=== PATIENT | female | born 1935 | race Caucasian/White ===

== ENCOUNTER 2016-11-26 08:58 | Inpatient (IN) ==
[2016-11-26] MEDS ORDERED: Ipratropium/Albuterol Neb 3 ML IH ONE (09:34)
--- NOTE | 2016-11-26 09:38 | Emergency Department Note ---
Disposition Clinical Impression: Dyspnea Qualifiers: Dyspnea type: unspecified Qualified Code(s): R06.00 - Dyspnea, unspecified Fluid overload Qualifiers: Hypervolemia type: unspecified Qualified Code(s): E87.70 - Fluid overload, unspecified Disposition: Admitted As Inpatient Condition: Fair Referrals: Vidhya Bland DO [Primary Care Provider] - Forms: ED Satisfaction Letter Time of Disposition: 12:02 SOB HPI - General Chief Complaint: ED Upper Respiratory Infection Stated Complaint: congestion Time Seen by Provider: 11/26/16 09:31 Source: patient, family Mode of arrival: wheelchair Limitations: no limitations Nursing Notes Reviewed: Yes Vital Signs Reviewed: Yes - History of Present Illness 81-year-old been sick for the last several days and states that she's been short of breath and having some wheezing since becoming sick. Patient has no history of heart failure or COPD. I did review her records she had an echo back in 01/2016 that showed an EF of 60%. Pt Subjective Complaint: shortness of breath Onset (ago): day(s) Context: recent illness Severity: moderate Consistency/Duration: constant Improves with: nothing Worsens with: exertion Associated symptoms: Reports: cough, wheezing. Denies: fever, hemoptysis Treatment prior to arrival: none - Related Data Home Medications Medication Instructions Recorded Confirmed Aspirin [Adult Low Dose Aspirin EC] 81 mg PO QAM 04/27/15 04/27/15 Cholecalciferol (Vitamin D3) 5,000 unit PO QAM 04/27/15 04/27/15 [Vitamin D3] Digoxin [Lanoxin] 0.125 mg PO QAM 04/27/15 04/27/15 Furosemide [Lasix] 20 mg PO QAM 04/27/15 04/27/15 Glimepiride [Amaryl] 0.5 mg PO QPM 04/27/15 04/27/15 Glimepiride [Amaryl] 1 mg PO QAM 04/27/15 04/27/15 Levothyroxine [Synthroid] 125 mcg PO QAM 04/27/15 04/27/15 Lisinopril [Zestril] 20 mg PO QAM 04/27/15 04/27/15 Magnesium Oxide [Magnesium] 400 mg PO QPM 04/27/15 04/27/15 Multivitamin/Iron/Folic Acid 1 each PO QAM 04/27/15 04/27/15 [Centrum Complete Multivit Tab] Warfarin [Coumadin] 2 mg PO AD 04/27/15 04/27/15 Warfarin [Coumadin] 3 mg PO AD 04/27/15 04/27/15 Previous Rx's Medication Instructions Recorded Levofloxacin [Levaquin] 750 mg PO DAILY #2 tablet 05/02/15 Metoprolol [Lopressor] 75 mg PO BID #60 tablet 05/02/15 amLODIPine [Norvasc] 10 mg PO DAILY #30 tablet 05/02/15 Meclizine [Antivert] 25 mg PO TID 7 Days tablet 12/22/15 cephALEXin [Keflex] 500 mg PO TID #9 capsule 02/12/16 Allergies Allergy/AdvReac Type Severity Reaction Status Date / Time No Known Allergies Allergy Verified 12/22/15 20:04 All systems ED: reviewed and negative except as stated. Constitutional: Denies: fever, chills, weakness, weight change Eyes: Denies: eye pain, eye discharge, vision change ENT ED: Denies: ear pain, throat pain, dental pain, hearing loss, epistaxis, congestion, dysphagia Cardiovascular: Denies: chest pain, palpitations, dyspnea on exertion, edema, syncope Respiratory: Reports: dyspnea, wheezes. Denies: cough, hemoptysis, stridor Gastrointestinal: Denies: abdominal pain, nausea, vomiting, diarrhea, constipation, hematemesis, melena, hematochezia Genitourinary: Denies: dysuria, frequency, hematuria, discharge Musculoskeletal: Denies: back pain, neck pain, arthralgia, myalgia Integumentary: Denies: rash, abrasion, lesions Neurological: Denies: headache, weakness, numbness, paresthesias, confusion, abnormal gait, vertigo Psychiatric: Denies: anxiety, depression, suicidal thoughts, homicidal thoughts , auditory hallucinations, visual hallucinations Endocrine: Denies: fatigue Hematological/Lymphatic: Denies: easy bleeding, easy bruising Allergic/Immunologic: Denies: facial swelling, urticaria Past Medical History - Past Medical History Medical history: Reports: atrial fibrillation, diabetes, hypertension, thyroid disease Surgical history: Reports: cholecystectomy, knee replacement Psychiatric history: Reports: no psych history CHANGE MANAGEMENT DIRECTOR history: Reports: no CHANGE MANAGEMENT DIRECTOR history - Social History Smoking Status: Never smoker Smokeless Tobacco Status: No Alcohol use: Reports: none Drug use: Reports: none Physical Exam - General Limitations: no limitations General appearance: alert, in no apparent distress - Head Head exam: atraumatic, normocephalic, normal inspection - Eye Eye exam: Present: normal appearance, PERRL, EOMI - ENT ENT exam: normal exam, normal oropharynx, mucous membranes moist - Neck Neck exam: Present: normal inspection, full ROM, trachea midline - Chest Chest inspection: Present: normal inspection, symmetric chest wall rise - Respiratory Respiratory exam: Present: wheezes, prolonged expiratory phase - Cardiovascular Cardiovascular exam: Present: bradycardia (Heart rate when I was in the room was 57), irregular rhythm - Abdominal Exam Abdominal exam: Present: soft, Non-Tender. Absent: tenderness, distention, guarding, rebound, rigidity - Extremities Exam Extremities exam: Present: normal inspection, full ROM. Absent: tenderness, pedal edema - Expanded Lower Extremity Exam Neurovascular/Tendon exam: Absent: motor deficit, sensory deficit, tendon deficit Gait: not tested/not observed - Back Exam Back exam: Present: normal inspection, full ROM. Absent: tenderness - Neurological Exam Neurological exam: Present: alert, oriented X3 - Psychiatric Psychiatric exam: Present: normal affect, normal mood - Skin Skin exam: Present: warm, dry, intact, normal color Course - Reevaluation(s) Reevaluation #1: 81-year-old comes in with increasing shortness of breath. She is noted to be hypertensive. She has cardiomegaly on her chest x-ray or BNP is elevated history of Lasix and Nitropaste with some reduction in her blood pressure. Admit her for evaluation and treatment. Time: 12:01 - Consultations Consultation #1: Skin test with Dr. Dobbins, admit Time: 12:01 Vital Signs Temperature 97.7 F 11/26/16 09:07 Pulse Rate 82 11/26/16 09:07 Respiratory Rate 16 11/26/16 09:07 Blood Pressure 205/73 11/26/16 09:07 O2 Sat by Pulse Oximetry 92 11/26/16 09:07 Temperature 97.7 F 11/26/16 09:07 Pulse Rate 66 11/26/16 11:35 Respiratory Rate 16 11/26/16 11:35 Blood Pressure 179/92 11/26/16 11:35 O2 Sat by Pulse Oximetry 98 11/26/16 11:35 Oxygen Delivery Oxygen Delivery Nasal Cannula Shortness of Breath/Dyspnea - Lab Data Lab results reviewed: Yes I reviewed the patient's lab results. Result diagrams: 11/26/16 09:43 11/26/16 09:43 Lab Results 11/26/16 11/26/16 11/26/16 Range/Units 09:43 09:43 09:43 WBC 16.1 H D (4.3-11.1) K/mcL RBC 5.30 H (3.82-4.97) M/mcL Hgb 11.9 (11.5-15.4) g/dL Hct 37.9 (35.3-44.9) % MCV 71.5 L (83.0-100.0) fL MCH 22.5 L (28.0-33.3) pg MCHC 31.4 L (31.6-35.5) g/dL RDW 16.7 H (11.5-14.5) % Plt Count 297 (140-400) K/mcL MPV 9.0 L (9.4-12.4) fL Immature Gran % 0.8 (0-4) % Seg Neutrophils % 84.4 % Lymphocytes % 7.0 % Monocytes % 7.7 % Eosinophils % 0.0 % Basophils % 0.1 % Neutrophils # 13.6 H (1.6-8.9) K/mcL Lymphocytes # 1.1 (0.6-4.6) K/mcL Monocytes # 1.2 (0.0-1.3) K/mcL Eosinophils # 0.0 (0.0-0.6) K/mcL Basophils # 0.0 (0.0-0.2) K/mcL Immature Plt Fraction 1.8 (1.1-6.1) % ABG pH (7.32-7.45) pH Units ABG pCO2 (35-45) mmHg ABG pO2 (85-104) mmHg ABG HCO3 (21-27) mEq/L ABG Total CO2 (20-26) mEq/L ABG O2 Saturation (95-98) % ABG Base Excess (-2 to 3) mEq/L Sodium 128 L (136-145) mEq/L Potassium 3.5 (3.5-4.5) mEq/L Chloride 92 L (98-109) mEq/L Carbon Dioxide 25 (19-29) mEq/L BUN 22 H (7-20) mg/dL Creatinine 1.00 (0.57-1.11) mg/dL Est GFR ( Amer) > 60 (> 60) Est GFR (Non-Af Amer) 53 L (> 60) BUN/Creatinine Ratio 22 (6-26) Glucose 138 H (70-99) mg/dL Calculated Osmolality 272 L (280-300) Lactic Acid 1.3 (0.5-2.2) mmol/L Calcium 8.9 (8.6-10.8) mg/dL Troponin I (0-0.03) ng/mL B-Natriuretic Peptide (0-100) pg/mL Urine Color (Yellow) Urine Clarity (Clear) Urine pH (5.0-8.0) pH Units Ur Specific Institute (1.010-1.025) Urine Protein (Neg-Trace) mg/dL Urine Glucose (UA) (Normal) mg/dL Urine Ketones (Negative) mg/dL Urine Blood (Negative) Urine Nitrite (Negative) Urine Bilirubin (Negative) Urine Urobilinogen (Normal) mg/dL Ur Leukocyte Esterase (Negative) Urine Microscopic RBC (0-3) per hpf Urine Microscopic WBC (0-3) per hpf Ur Squamous Epith Cells (None-Few) per lpf Urine Bacteria (None-Few) per hpf Hyaline Casts (None-Few) per lpf Ur Culture Indicated? (NO) 11/26/16 11/26/16 11/26/16 Range/Units 09:43 09:43 10:07 WBC (4.3-11.1) K/mcL RBC (3.82-4.97) M/mcL Hgb (11.5-15.4) g/dL Hct (35.3-44.9) % MCV (83.0-100.0) fL MCH (28.0-33.3) pg MCHC (31.6-35.5) g/dL RDW (11.5-14.5) % Plt Count (140-400) K/mcL MPV (9.4-12.4) fL Immature Gran % (0-4) % Seg Neutrophils % % Lymphocytes % % Monocytes % % Eosinophils % % Basophils % % Neutrophils # (1.6-8.9) K/mcL Lymphocytes # (0.6-4.6) K/mcL Monocytes # (0.0-1.3) K/mcL Eosinophils # (0.0-0.6) K/mcL Basophils # (0.0-0.2) K/mcL Immature Plt Fraction (1.1-6.1) % ABG pH 7.41 (7.32-7.45) pH Units ABG pCO2 41 (35-45) mmHg ABG pO2 112 H (85-104) mmHg ABG HCO3 26 (21-27) mEq/L ABG Total CO2 28 H (20-26) mEq/L ABG O2 Saturation 98 (95-98) % ABG Base Excess 2 (-2 to 3) mEq/L Sodium (136-145) mEq/L Potassium (3.5-4.5) mEq/L Chloride (98-109) mEq/L Carbon Dioxide (19-29) mEq/L BUN (7-20) mg/dL Creatinine (0.57-1.11) mg/dL Est GFR ( Amer) (> 60) Est GFR (Non-Af Amer) (> 60) BUN/Creatinine Ratio (6-26) Glucose (70-99) mg/dL Calculated Osmolality (280-300) Lactic Acid (0.5-2.2) mmol/L Calcium (8.6-10.8) mg/dL Troponin I 0.01 (0-0.03) ng/mL B-Natriuretic Peptide 609 H (0-100) pg/mL Urine Color (Yellow) Urine Clarity (Clear) Urine pH (5.0-8.0) pH Units Ur Specific Institute (1.010-1.025) Urine Protein (Neg-Trace) mg/dL Urine Glucose (UA) (Normal) mg/dL Urine Ketones (Negative) mg/dL Urine Blood (Negative) Urine Nitrite (Negative) Urine Bilirubin (Negative) Urine Urobilinogen (Normal) mg/dL Ur Leukocyte Esterase (Negative) Urine Microscopic RBC (0-3) per hpf Urine Microscopic WBC (0-3) per hpf Ur Squamous Epith Cells (None-Few) per lpf Urine Bacteria (None-Few) per hpf Hyaline Casts (None-Few) per lpf Ur Culture Indicated? (NO) 11/26/16 Range/Units 11:12 WBC (4.3-11.1) K/mcL RBC (3.82-4.97) M/mcL Hgb (11.5-15.4) g/dL Hct (35.3-44.9) % MCV (83.0-100.0) fL MCH (28.0-33.3) pg MCHC (31.6-35.5) g/dL RDW (11.5-14.5) % Plt Count (140-400) K/mcL MPV (9.4-12.4) fL Immature Gran % (0-4) % Seg Neutrophils % % Lymphocytes % % Monocytes % % Eosinophils % % Basophils % % Neutrophils # (1.6-8.9) K/mcL Lymphocytes # (0.6-4.6) K/mcL Monocytes # (0.0-1.3) K/mcL Eosinophils # (0.0-0.6) K/mcL Basophils # (0.0-0.2) K/mcL Immature Plt Fraction (1.1-6.1) % ABG pH (7.32-7.45) pH Units ABG pCO2 (35-45) mmHg ABG pO2 (85-104) mmHg ABG HCO3 (21-27) mEq/L ABG Total CO2 (20-26) mEq/L ABG O2 Saturation (95-98) % ABG Base Excess (-2 to 3) mEq/L Sodium (136-145) mEq/L Potassium (3.5-4.5) mEq/L Chloride (98-109) mEq/L Carbon Dioxide (19-29) mEq/L BUN (7-20) mg/dL Creatinine (0.57-1.11) mg/dL Est GFR ( Amer) (> 60) Est GFR (Non-Af Amer) (> 60) BUN/Creatinine Ratio (6-26) Glucose (70-99) mg/dL Calculated Osmolality (280-300) Lactic Acid (0.5-2.2) mmol/L Calcium (8.6-10.8) mg/dL Troponin I (0-0.03) ng/mL B-Natriuretic Peptide (0-100) pg/mL Urine Color Yellow (Yellow) Urine Clarity Clear (Clear) Urine pH 6.5 (5.0-8.0) pH Units Ur Specific Institute 1.018 (1.010-1.025) Urine Protein 30 H (Neg-Trace) mg/dL Urine Glucose (UA) Normal (Normal) mg/dL Urine Ketones Negative (Negative) mg/dL Urine Blood Negative (Negative) Urine Nitrite Negative (Negative) Urine Bilirubin Negative (Negative) Urine Urobilinogen Normal (Normal) mg/dL Ur Leukocyte Esterase Trace H (Negative) Urine Microscopic RBC 3-5 H (0-3) per hpf Urine Microscopic WBC 5-15 H (0-3) per hpf Ur Squamous Epith Cells Many H (None-Few) per lpf Urine Bacteria None Seen (None-Few) per hpf Hyaline Casts None Seen (None-Few) per lpf Ur Culture Indicated? YES A (NO) - Radiology Data Radiology results reviewed: Yes I reviewed the patient's radiology results. Chest X-Ray 11/26/16 09:31 IMPRESSION: Stable study showing cardiomegaly. D/ / Amber Ge Cha, MD / Amber Ge Cha, MD Interpreting Provider: Amber Ge Cha, MD - EKG Data EKG attestation: Yes I reviewed and interpreted this EKG. Rate: Reports: normal Rhythm: Reports: A.Fib Interpretation: Reports: no acute changes
[2016-11-26 09:55] LABS: Basophils % 0.1 %; Hematocrit 37.9 % (35.3-44.9); Hemoglobin 11.9 g/dL (11.5-15.4); Immature Granulocytes % 0.8 % (0-4); Immature Platelets 1.8 % (1.1-6.1); Lymphocytes # 1.1 K/mcL (0.6-4.6); Mean Corpuscular HGB Conc 31.4 g/dL (31.6-35.5); Mean Corpuscular Hemoglobin 22.5 pg (28.0-33.3); Mean Corpuscular Volume 71.5 fL (83.0-100.0); Monocytes # 1.2 K/mcL (0.0-1.3); Monocytes % 7.7 %; Neutrophils # 13.6 K/mcL (1.6-8.9); Platelet Count 297 K/mcL (140-400); Red Cell Distribution Width 16.7 % (11.5-14.5); Segmented Neutrophils % 84.4 %
[2016-11-26] MEDS ORDERED: Nitroglycerin 1 INCH/GM PACKET TP ONE (09:59)
[2016-11-26 10:06] LABS: BUN/Creatinine Ratio 22 (6-26); Blood Urea Nitrogen 22 mg/dL (7-20); Calcium 8.9 mg/dL (8.6-10.8); Carbon Dioxide 25 mEq/L (19-29); Chloride 92 mEq/L (98-109); Glucose 138 mg/dL (70-99); Osmolality,Calculated 272 (280-300); Potassium 3.5 mEq/L (3.5-4.5); Sodium 128 mEq/L (136-145); eGFR For African Americans > 60 (> 60); eGFR For Non-African Americans 53 (> 60)
[2016-11-26 10:10] LABS: ABG Base Excess 2 mEq/L (-2 to 3); ABG HCO3 26 mEq/L (21-27); ABG Oxygen Saturation 98 % (95-98); ABG PCO2 41 mmHg (35-45); ABG PH 7.41 pH Units (7.32-7.45); ABG PO2 112 mmHg (85-104); ABG TCO2 28 mEq/L (20-26)
[2016-11-26] MEDS ORDERED: Furosemide 40 MG/4 ML VIAL IVP ONE (11:17)
[2016-11-26 11:44] LABS: Bilirubin,Urine Negative (Negative); Blood,Urine Negative (Negative); Clarity,Urine Clear (Clear); Color,Urine Yellow (Yellow); Glucose,Urine (UA) Normal (Normal); Ketones,Urine Negative (Negative); Leukocyte Esterase,Urine Trace (Negative); Nitrite,Urine Negative (Negative); PH,Urine 6.5 pH Units (5.0-8.0); Protein,Urine 30 mg/dL (Neg-Trace); Specific Gravity,Urine 1.018 (1.010-1.025); Urobilinogen,Urine Normal (Normal)
[2016-11-26 11:47] LABS: Bacteria,Urine None Seen per hpf (None-Few); Hyaline Casts,Urine None Seen per lpf (None-Few); Squamous Epithelial Cell,Urine Many per lpf (None-Few)
[2016-11-26] MEDS ORDERED: Ipratropium/Albuterol Neb 3 ML IH PRN (13:13)
--- NOTE | 2016-11-26 13:19 | Internal Med History&Physical ---
Date of Encounter: 11/26/16 Time of Encounter: 13:17 Assessment and Plan (1) Dyspnea Current visit: Yes Status: Acute uncertain etiology. CXR clear but cardiolomegaly. Check TTE Trial of lasix diuretics, I/Os Empiric treatment for bronchitis with duonebs, azithromycin Although patient had DBP in 120 on presentation, it came down well and i doubt this represent a symptom of HTN urgency/crisis Monitor hospital course closely to monitor response to therapy Qualifiers: Dyspnea type: shortness of breath Qualified Code(s): R06.02 - Shortness of breath; R06.00 - Dyspnea, unspecified; R06.01 - Orthopnea (2) Atrial fibrillation Current visit: No Status: Chronic continue coumadin, rate agents Qualifiers: Atrial fibrillation type: chronic Qualified Code(s): I48.2 - Chronic atrial fibrillation (3) Hypothyroidism Current visit: No Status: Chronic continue medications Qualifiers: Hypothyroidism type: unspecified Qualified Code(s): E03.9 - Hypothyroidism , unspecified (4) HTN (hypertension), benign Current visit: Yes Status: Acute continue med Internal Medicine - H&P: HPI Chief complaint: SOB History of present illness: Ms. Mcdermott is a 81 year old female who presents with SOB She has a hx of AFib on coumadin, HTN, hypothyroidism. She reports developing symptoms since sunday when she visited the urgent care with SOB. She was given keflex, mucinex and sent home. However, over the course of the weekend, her respiratory symptoms did not improve with worsening SOB while ambulating around her home. At baseline, she uses qHS 2 L NC. On direct questioning, denies overt PND/orthopnea. CXR with cardiomegaly but w/o overt interstitial infiltrates Review noted some stomach upset. EKG personally reviewed with rate 67, AFib EXAMINATION: SINGLE VIEW OF THE CHEST 11/26/2016 10:24 am COMPARISON: 12/22/2015 HISTORY: ORDERING SYSTEM PROVIDED HISTORY: upper respiratory infection Congestion, nausea for 1 week. Acute symptoms. Initial study. FINDINGS: No acute bony abnormality. The cardiopericardial silhouette is enlarged, similar to the prior study. The lungs are clear without focal consolidation, effusion, nor overt edema. XR/XR chest 1V portable IMPRESSION: Stable study showing cardiomegaly. Past Med Surg Social Fam HX - Past Medical History Medical history: atrial fibrillation, diabetes, hypertension, thyroid disease Psychiatric history: no psych history - Past Surgical History Surgical History: cholecystectomy, knee replacement - Social History Smoking Status: Never smoker Smokeless Tobacco Status: No Alcohol use: none Drug use: none - Family History Mother Living Status: Hx Family Cardiac Disorders: Yes (htn) Hx Family Neurologic Disorders: Yes (stroke) Father Living Status: Internal Medicine - H&P: Meds Aspirin [Adult Low Dose Aspirin EC] 81 mg PO QAM 04/27/15 [History] Cholecalciferol (Vitamin D3) [Vitamin D3] 5,000 unit PO QAM 04/27/15 [History] Glimepiride [Amaryl] 0.5 mg PO QPM 04/27/15 [History] Glimepiride [Amaryl] 1 mg PO QAM 04/27/15 [History] Lisinopril [Zestril] 20 mg PO QAM 04/27/15 [History] Magnesium Oxide [Magnesium] 400 mg PO QPM 04/27/15 [History] Multivitamin/Iron/Folic Acid [Centrum Complete Multivit Tab] 1 each PO QAM 04/26 [History] Warfarin [Coumadin] 2 mg PO TUFR 04/27/15 [History] Warfarin [Coumadin] 3 mg PO SUMOWETHSA 04/27/15 [History] Metoprolol [Lopressor] 75 mg PO BID #60 tablet 05/02/15 [Rx] cephALEXin [Keflex] 500 mg PO TID #9 capsule 02/12/16 [Rx] Levothyroxine Sodium [Levoxyl] 112 mcg PO DAILY 11/26/16 [History] cloNIDine HCl [CloNIDine HCl] 0.1 mg PO BID 11/26/16 [History] hydrALAZINE [HydrALAZINE] 25 mg PO BID 11/26/16 [History] hydroCHLOROthiazide [Hydrochlorothiazide] 50 mg PO DAILY 11/26/16 [History] 3 Allergy/AdvReac Type Severity Reaction Status Date / Time No Known Allergies Allergy Verified 12/22/15 20:04 All Systems PM: A 10-system review of systems was performed and is negative for pertinent findings except as documented above in the HPI. Review of systems: ROS 14 point review of systems reviewed as best as possible given presentation. Pertinent positive or negative as per HPI or otherwise reviewed as negative - Constitutional Vitals: Temp Pulse Resp BP Pulse Ox 97.6 F 85 18 169/87 97 11/26/16 13:03 11/26/16 13:03 11/26/16 13:03 11/26/16 13:03 11/26/16 13:03 Exam: General - AAO x 3 Psych - Appropriate affect/speech. No agitation Eyes - JOSEFINA. Eye lids intact. No scleral icterus Heart - Sinus. RRR. S1 and S2 present. No added HS/murmurs appreciated. No elevated JVD appreciated. Lung - Adequate air entry b/l, No crackles/wheezes appreciated GI - Soft, non-tender. No hepatosplenomegaly/ascites. BS+ - No CVA/suprapubic tenderness or palpable bladder distension Skin - Intact. No rash/petechiae/ecchymosis. Warm extremities Internal Med - H&P Results - Labs CBC & Chem 7: 11/26/16 09:43 11/26/16 09:43
[2016-11-26] MEDS ORDERED: Naloxone 0.4 MG/ML INJ IVP PRN (14:05)
[2016-11-26] MEDS: Azithromycin 500 MG in D5% in Water 250 ML IVPB SCH (15:39)
[2016-11-26] MEDS: Ipratropium/Albuterol Neb 3 ML IH SCH ×2 (16:23→22:35)
[2016-11-26] MEDS: Magnesium Oxide 400 MG TABLET PO SCH (17:26)
[2016-11-26] MEDS: *HR* Warfarin 3 MG TABLET PO SCH (17:26)
[2016-11-26] MEDS: Furosemide 20 MG/2 ML VIAL IVP SCH (17:26)
[2016-11-26] MEDS ORDERED: *HR* Glimepiride 2 MG TABLET PO SCH (18:00)
[2016-11-26] MEDS: cloNIDine HCl 0.1 MG TABLET PO SCH (20:45)
[2016-11-26] MEDS: hydrALAZINE 25 MG TABLET PO SCH (20:45)
[2016-11-27] MEDS: Ipratropium/Albuterol Neb 3 ML IH SCH ×4 (04:01→21:18)
[2016-11-27 04:09] LABS: Basophils % 0.3 %; Eosinophils % 0.3 %; Hematocrit 37.1 % (35.3-44.9); Hemoglobin 11.4 g/dL (11.5-15.4); Immature Granulocytes % 0.6 % (0-4); Lymphocytes # 2.2 K/mcL (0.6-4.6); Lymphocytes % 19.2 %; Mean Corpuscular HGB Conc 30.7 g/dL (31.6-35.5); Mean Corpuscular Hemoglobin 21.9 pg (28.0-33.3); Mean Corpuscular Volume 71.3 fL (83.0-100.0); Mean Platelet Volume 8.6 fL (9.4-12.4); Monocytes # 1.5 K/mcL (0.0-1.3); Monocytes % 12.6 %; Neutrophils # 7.7 K/mcL (1.6-8.9); Platelet Count 263 K/mcL (140-400); Red Cell Distribution Width 16.4 % (11.5-14.5)
[2016-11-27 04:13] LABS: INR 2.2; Prothrombin Time 24.5 Seconds (9.4-12.1)
[2016-11-27 04:29] LABS: Calcium 8.5 mg/dL (8.6-10.8)
[2016-11-27] MEDS ORDERED: Potassium Chloride 40 MEQ, Lidocaine 1% 2 ML in D5% in Water 500 ML IVPB ONE (08:59)
[2016-11-27] MEDS ORDERED: *HR* Glimepiride 2 MG TABLET PO SCH (09:00)
[2016-11-27] MEDS ORDERED: D5% in Water 1,000 ML IVC PRN (09:06)
[2016-11-27] MEDS ORDERED: *HR* Dextrose 50 % in Water (Syg) 50 ML SYRINGE IVP PRN (09:06)
[2016-11-27] MEDS ORDERED: Dextrose Gel 15 GM PO PRN ×2 (09:06)
[2016-11-27] MEDS: Aspirin Enteric Coated 81 MG Tablet PO SCH (09:50)
[2016-11-27] MEDS: hydrALAZINE 25 MG TABLET PO SCH ×2 (09:50→20:03)
[2016-11-27] MEDS: Cholecalciferol (D-3) 1,000 UNIT TABLET PO SCH (09:50)
[2016-11-27] MEDS: hydroCHLOROthiazide 25 MG TABLET PO SCH (09:50)
[2016-11-27] MEDS: Lisinopril 20 MG TABLET PO SCH (09:50)
[2016-11-27] MEDS: cloNIDine HCl 0.1 MG TABLET PO SCH ×2 (09:51→20:03)
[2016-11-27] MEDS: Furosemide 20 MG/2 ML VIAL IVP SCH ×2 (09:51→17:20)
[2016-11-27] MEDS: Insulin LISPRO 300 UNITS/3 ML VIAL SQ SCH ×4 (09:51→21:50)
--- NOTE | 2016-11-27 13:41 | Electrocardiograph Report ---
[address] [place] [address] Test Date: 2016-11-26 Pat Name: Ruth Mcdermott Department: 102 Room: 2A33 Gender: F [place] Operator: : 1935 Requested By: Suhail Galvan Order Number: [id number] Reading MD: Arlene Merchant Measurements Intervals [place] Rate: 67 P: RI: 0 QRS: 44 QRSD: 100 T: -21 QT: 381 QTc: 397 Interpretive Statements ATRIAL FIBRILLATION NONSPECIFIC ST & T-WAVE ABNORMALITY Electronically Signed On 11-27-2016 13:39:35 EDT by Arlene Merchant
[2016-11-27] MEDS: Azithromycin 500 MG in D5% in Water 250 ML IVPB SCH (15:40)
--- NOTE | 2016-11-27 15:45 | Internal Med Progress Note ---
Date of Encounter: 11/27/16 Time of Encounter: 15:44 - Assessment and plan (1) Dyspnea Current Visit: Yes Status: Acute Assessment and plan: given clinical presentation, concern for CHF decompensation last 2D echo in 01/2016 reported LVEF of 60%, normal systolic function but indeterminate diastolic function will continue IV diuresis O2 supplementation monitor I/Os, daily weights fluid restriction diet Qualifiers: Dyspnea type: shortness of breath Qualified Code(s): R06.02 - Shortness of breath; R06.00 - Dyspnea, unspecified; R06.01 - Orthopnea (2) Acute kidney injury Current Visit: Yes Status: Acute Assessment and plan: Likely secondary to diuretic use given acute respiratory decompensation,will continue Diuretic support closely monitor renal function (3) Hypokalemia Current Visit: Yes Status: Acute Assessment and plan: K supplemented continue to monitor electrolytes and replace as needed (4) Atrial fibrillation Current Visit: No Status: Chronic Assessment and plan: Rate controlled with BB anticoagulated with Coumadin INR within therapeutic range goal INR: 2-3 Qualifiers: Atrial fibrillation type: chronic Qualified Code(s): I48.2 - Chronic atrial fibrillation (5) Diabetes mellitus Current Visit: No Status: Chronic Assessment and plan: Hold oral antihyperglycemic agents at this time continue sliding scale insulin algorithm monitor FS and BG ADA diet Qualifiers: Diabetes mellitus type: type 2 Diabetes mellitus complication status: without complication Diabetes mellitus cook ship insulin use: without senior care use Qualified Code(s): E11.9 - Type 2 diabetes mellitus without complications (6) HTN (hypertension), benign Current Visit: Yes Status: Acute Assessment and plan: BP within acceptable range continue home medications (7) DVT prophylaxis Current Visit: No Status: Acute Assessment and plan: anticoagulated with coumadin (8) Hypothyroidism Current Visit: No Status: Chronic Assessment and plan: continue Levothyroxine Qualifiers: Hypothyroidism type: unspecified Qualified Code(s): E03.9 - Hypothyroidism , unspecified - Subjective Interval history: Pt seen and examined with family present at bedside. Pt reports of feeling better compared to previous day. saturating well on nasal cannula. States she only uses oxygen at night. - Constitutional Vitals: Temp Pulse Resp BP Pulse Ox 97.8 F 64 18 137/66 94 11/27/16 11:00 11/27/16 11:00 11/27/16 11:00 11/27/16 11:00 11/27/16 11:00 General appearance: Present: cooperative, A&O X 3, morbidly obese, pleasant, no acute distress, answers questions appropriately - Head Head exam: Present: atraumatic, normocephalic - Eye Eye exam: Present: conjuntiva pink, sclera anicteric - Respiratory Respiratory exam: Present: rales (bibasilar rales). Absent: respiratory distress, wheezes - Cardiovascular Cardiovascular exam: Present: RRR, +S1, +S2. Absent: diastolic murmur, gallop, rubs, systolic murmur - GI/Abdominal GI/Abdominal exam: Present: normal bowel sounds, soft, no peritoneal signs. Absent: distended, tenderness - Extremities Exam Extremities exam: Present: calf tenderness, pedal edema, warm, radial pulses palpable and symmetrical - Neurological Exam Neurological exam: Present: alert, oriented X3 - Psychiatric Psychiatric exam: Present: normal affect, normal mood Internal Medicine: Result - Labs CBC & Chem 7: 11/27/16 03:57 11/27/16 03:57 Labs: Short CBC 11/27/16 Range/Units 03:57 WBC 11.6 H (4.3-11.1) K/mcL Hgb 11.4 L (11.5-15.4) g/dL Hct 37.1 (35.3-44.9) % Plt Count 263 (140-400) K/mcL Neutrophils # 7.7 (1.6-8.9) K/mcL BMP 11/27/16 03:57 Sodium 131 L Potassium 3.0 L Chloride 91 L Carbon Dioxide 29 BUN 25 H Creatinine 1.20 H Glucose 98 Calcium 8.5 L - ABG Interpretation ABG results: ABG ABG pH 7.41 pH Units (7.32-7.45) 11/26/16 10:07 ABG pCO2 41 mmHg (35-45) 11/26/16 10:07 ABG pO2 112 mmHg (85-104) H 11/26/16 10:07 ABG O2 Saturation 98 % (95-98) 11/26/16 10:07 PT/INR, D-dimer PT 24.5 Seconds (9.4-12.1) H 11/27/16 03:57 Consult Discharge Plan - Plan Referrals: Vidhya Bland DO [Primary Care Provider] - (web request 11/27/2016)
[2016-11-27] MEDS: *HR* Warfarin 3 MG TABLET PO SCH (17:20)
[2016-11-27] MEDS: Magnesium Oxide 400 MG TABLET PO SCH (17:20)
[2016-11-27] MEDS ORDERED: Warfarin perPT PO PRN (18:00)
[2016-11-28] MEDS: Ipratropium/Albuterol Neb 3 ML IH SCH ×4 (04:19→21:59)
[2016-11-28 04:58] LABS: Basophils # 0.1 K/mcL (0.0-0.2); Basophils % 0.4 %; Eosinophils # 0.1 K/mcL (0.0-0.6); Hematocrit 38.1 % (35.3-44.9); Hemoglobin 12.3 g/dL (11.5-15.4); Immature Granulocytes % 0.7 % (0-4); Lymphocytes # 3.4 K/mcL (0.6-4.6); Lymphocytes % 25.5 %; Mean Corpuscular HGB Conc 32.3 g/dL (31.6-35.5); Mean Corpuscular Hemoglobin 23.2 pg (28.0-33.3); Mean Corpuscular Volume 71.9 fL (83.0-100.0); Mean Platelet Volume 8.7 fL (9.4-12.4); Monocytes # 1.5 K/mcL (0.0-1.3); Monocytes % 11.4 %; Neutrophils # 8.2 K/mcL (1.6-8.9); Platelet Count 283 K/mcL (140-400); Red Cell Distribution Width 16.3 % (11.5-14.5)
[2016-11-28 05:00] LABS: INR 2.1; Prothrombin Time 22.8 Seconds (9.4-12.1)
[2016-11-28 05:07] LABS: Calcium 8.6 mg/dL (8.6-10.8); Potassium 2.8 mEq/L (3.5-4.5)
[2016-11-28 05:08] LABS: Magnesium 1.8 mg/dL (1.6-2.6)
[2016-11-28] MEDS ORDERED: Potassium Chloride 40 MEQ, Lidocaine 1% 2 ML in D5% in Water 500 ML IVPB ONE (07:30)
[2016-11-28] MEDS: Insulin LISPRO 300 UNITS/3 ML VIAL SQ SCH ×4 (07:50→20:47)
[2016-11-28] MEDS: hydroCHLOROthiazide 25 MG TABLET PO SCH (07:57)
[2016-11-28] MEDS: Furosemide 20 MG/2 ML VIAL IVP SCH (07:57)
[2016-11-28] MEDS: Cholecalciferol (D-3) 1,000 UNIT TABLET PO SCH (07:58)
[2016-11-28] MEDS: hydrALAZINE 25 MG TABLET PO SCH ×2 (07:58→20:45)
[2016-11-28] MEDS: Lisinopril 20 MG TABLET PO SCH (07:58)
[2016-11-28] MEDS: cloNIDine HCl 0.1 MG TABLET PO SCH ×2 (07:58→20:45)
[2016-11-28] MEDS: Aspirin Enteric Coated 81 MG Tablet PO SCH (07:58)
--- NOTE | 2016-11-28 12:27 | Internal Med Progress Note ---
Date of Encounter: 11/28/16 Time of Encounter: 12:19 - Assessment and plan (1) Dyspnea Current Visit: Yes Status: Acute Assessment and plan: given clinical presentation, concern for CHF decompensation last 2D echo in 01/2016 reported LVEF of 60%, normal systolic function but indeterminate diastolic function repeat 2D echo showed LVEF of 55%, indeterminate diastolic function, mildly dilated right ventricle with normal appearing function, severely dilated left atrium, severely dilated right atrium. no evidence of pulmonary hypertension will start PO lasix and d/c IV lasix likely d/c in am d/c griffin catheter pt reports of having a follow up with her Primary drywall stripper in two weeks. O2 supplementation monitor I/Os, daily weights fluid restriction diet Qualifiers: Dyspnea type: shortness of breath Qualified Code(s): R06.02 - Shortness of breath; R06.00 - Dyspnea, unspecified; R06.01 - Orthopnea (2) Acute kidney injury Current Visit: Yes Status: Acute Assessment and plan: Likely secondary to diuretic use d/ester IV lasix and started PO lasix. Pt has underlying CKD, will continue to closely monitor (3) Hypokalemia Current Visit: Yes Status: Acute Assessment and plan: K supplemented continue to monitor electrolytes and replace as needed (4) Atrial fibrillation Current Visit: No Status: Chronic Assessment and plan: Rate controlled with BB anticoagulated with Coumadin INR within therapeutic range goal INR: 2-3 Qualifiers: Atrial fibrillation type: chronic Qualified Code(s): I48.2 - Chronic atrial fibrillation (5) Diabetes mellitus Current Visit: No Status: Chronic Assessment and plan: Hold oral antihyperglycemic agents at this time continue sliding scale insulin algorithm monitor FS and BG ADA diet Qualifiers: Diabetes mellitus type: type 2 Diabetes mellitus complication status: without complication 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 insulin use: without correction use Qualified Code(s): E11.9 - Type 2 diabetes mellitus without complications (6) HTN (hypertension), benign Current Visit: Yes Status: Acute Assessment and plan: BP within acceptable range continue home medications (7) DVT prophylaxis Current Visit: No Status: Acute Assessment and plan: anticoagulated with coumadin (8) Hypothyroidism Current Visit: No Status: Chronic Assessment and plan: continue Levothyroxine Qualifiers: Hypothyroidism type: unspecified Qualified Code(s): E03.9 - Hypothyroidism , unspecified - Subjective Interval history: Pt seen and examined at bedside. Resting in bed and reports of feeling significantly better compared to previous day. Currently saturating well on room air and states she is using oxygen at bedtime. No overnight issues were reported. - Constitutional Vitals: Temp Pulse Resp BP Pulse Ox 97.7 F 58 16 113/72 94 11/28/16 10:39 11/28/16 10:39 11/28/16 10:39 11/28/16 10:39 11/28/16 10:39 General appearance: Present: cooperative, A&O X 3, morbidly obese, pleasant, no acute distress, answers questions appropriately - Head Head exam: Present: atraumatic, normocephalic - Eye Eye exam: Present: conjuntiva pink, sclera anicteric - Respiratory Respiratory exam: Present: rales (bibasilar rales-improved from previous day). Absent: respiratory distress, wheezes - Cardiovascular Cardiovascular exam: Present: RRR, +S1, +S2. Absent: diastolic murmur, gallop, rubs, systolic murmur - GI/Abdominal GI/Abdominal exam: Present: normal bowel sounds, soft, no peritoneal signs. Absent: distended, tenderness - Extremities Exam Extremities exam: Present: pedal edema (trace pedal edema in b/l LE ), warm, radial pulses palpable and symmetrical. Absent: calf tenderness - Neurological Exam Neurological exam: Present: alert, oriented X3 - Psychiatric Psychiatric exam: Present: normal affect, normal mood Internal Medicine: Result - Labs CBC & Chem 7: 11/28/16 04:45 11/28/16 04:45 Labs: Short CBC 11/28/16 Range/Units 04:45 WBC 13.4 H (4.3-11.1) K/mcL Hgb 12.3 (11.5-15.4) g/dL Hct 38.1 (35.3-44.9) % Plt Count 283 (140-400) K/mcL Neutrophils # 8.2 (1.6-8.9) K/mcL BMP 11/28/16 04:45 Sodium 128 L Potassium 2.8 L Chloride 86 L Carbon Dioxide 32 H BUN 31 H Creatinine 1.22 H Glucose 116 H Calcium 8.6 - ABG Interpretation ABG results: ABG ABG pH 7.41 pH Units (7.32-7.45) 11/26/16 10:07 ABG pCO2 41 mmHg (35-45) 11/26/16 10:07 ABG pO2 112 mmHg (85-104) H 11/26/16 10:07 ABG O2 Saturation 98 % (95-98) 11/26/16 10:07 PT/INR, D-dimer PT 22.8 Seconds (9.4-12.1) H 11/28/16 04:45 - Impressions Impressions Echocardiogram 11/27/16 13:14 Impressions: LVEF 55%. Normal LV chamber size, wall thickness and function. Indeterminate diastolic function. Mildly dilated right ventricle with normal appearing function. Severely dilated left atrium. Severely dilated right atrium. No evidence of a PFO with agitated saline contrast. Mild tricuspid regurgitation, which was anteriorly directed. No evidence of pulmonary hypertension identified. Left Ventricular Wall Motion: Rest Echo Findings All wall segments showed normal motion. Findings: Study Quality * Technically adequate exam. ECG Findings * Atrial fibrillation. Left Ventricle * LVEF 55%. * Normal LV chamber size, wall thickness and function. * Indeterminate diastolic function. Right Ventricle * Mildly dilated right ventricle with normal appearing function. Left Atrium * Severely dilated left atrium. Right Atrium * Severely dilated right atrium. Interatrial Septum * Persistent bowing of the interatrial septum from left to right. No evidence of a PFO with agitated saline contrast. Aortic Valve * Trileaflet aortic valve. * Mildly sclerotic aortic valve leaflets. * No aortic regurgitation. * No aortic stenosis. Mitral Valve * Mild mitral annular calcification. * No mitral regurgitation. * No mitral stenosis. Tricuspid Valve * Normal tricuspid valve structure and function. * Mild tricuspid regurgitation, which was anteriorly directed. * No evidence of pulmonary hypertension identified. Pulmonic Valve * Normal pulmonic valve structure and function. * Trace pulmonic regurgitation. Aorta * Normally sized aortic root. Pericardium * The pericardium appears normal. IVC * Normal IVC dimensions and inspiratory collapse. Pulmonary Artery * Normal visualized portions of the main pulmonary artery. Consult Discharge Plan - Plan Referrals: Vidhya Bland DO [Primary Care Provider] - (web request 11/27/2016)
[2016-11-28] MEDS: Azithromycin 500 MG in D5% in Water 250 ML IVPB SCH (15:19)
[2016-11-28] MEDS: Magnesium Oxide 400 MG TABLET PO SCH (17:09)
[2016-11-28] MEDS: Furosemide 40 MG TABLET PO SCH (17:09)
[2016-11-28] MEDS ORDERED: *HR* Warfarin 2 MG TABLET PO SCH (18:00)
[2016-11-29] MEDS: Ipratropium/Albuterol Neb 3 ML IH SCH ×4 (03:30→21:20)
[2016-11-29 06:45] LABS: Basophils # 0.1 K/mcL (0.0-0.2); Basophils % 0.6 %; Eosinophils # 0.3 K/mcL (0.0-0.6); Eosinophils % 2.8 %; Hematocrit 41.1 % (35.3-44.9); Immature Granulocytes % 1.4 % (0-4); Lymphocytes # 2.1 K/mcL (0.6-4.6); Lymphocytes % 17.2 %; Mean Corpuscular HGB Conc 31.6 g/dL (31.6-35.5); Mean Corpuscular Hemoglobin 22.7 pg (28.0-33.3); Mean Corpuscular Volume 71.7 fL (83.0-100.0); Mean Platelet Volume 8.7 fL (9.4-12.4); Monocytes # 1.3 K/mcL (0.0-1.3); Monocytes % 10.9 %; Neutrophils # 8.1 K/mcL (1.6-8.9); Platelet Count 280 K/mcL (140-400); Red Blood Count 5.73 M/mcL (3.82-4.97); Red Cell Distribution Width 16.6 % (11.5-14.5); Segmented Neutrophils % 67.1 %
[2016-11-29 06:46] LABS: Prothrombin Time 22.3 Seconds (9.4-12.1)
[2016-11-29 06:58] LABS: Calcium 8.7 mg/dL (8.6-10.8); Magnesium 1.6 mg/dL (1.6-2.6); Phosphorous 2.8 mg/dL (2.3-4.7); Potassium 3.3 mEq/L (3.5-4.5)
[2016-11-29] MEDS: Insulin LISPRO 300 UNITS/3 ML VIAL SQ SCH ×4 (07:39→21:10)
[2016-11-29] MEDS: hydrALAZINE 25 MG TABLET PO SCH ×2 (08:17→20:55)
[2016-11-29] MEDS: Lisinopril 20 MG TABLET PO SCH (08:17)
[2016-11-29] MEDS: Cholecalciferol (D-3) 1,000 UNIT TABLET PO SCH (08:17)
[2016-11-29] MEDS: cloNIDine HCl 0.1 MG TABLET PO SCH ×2 (08:17→20:55)
[2016-11-29] MEDS: Aspirin Enteric Coated 81 MG Tablet PO SCH (08:17)
[2016-11-29] MEDS: Azithromycin 250 MG TABLET PO SCH (08:17)
[2016-11-29] MEDS: Furosemide 40 MG TABLET PO SCH ×2 (08:17→16:25)
--- NOTE | 2016-11-29 14:59 | Internal Med Progress Note ---
Date of Encounter: 11/29/16 Time of Encounter: 13:50 - Assessment and plan (1) Hyponatremia Current Visit: Yes Status: Acute Assessment and plan: Worsening Hyponatremia clinically asymptomatic HCTZ has been discontinued Urine Na and Osm ordered will closely monitor Na level q6h will consider nephrology evaluation if further deterioration occurs in Na level. (2) Dyspnea Current Visit: Yes Status: Acute Assessment and plan: given clinical presentation, concern for CHF decompensation last 2D echo in 01/2016 reported LVEF of 60%, normal systolic function but indeterminate diastolic function repeat 2D echo showed LVEF of 55%, indeterminate diastolic function, mildly dilated right ventricle with normal appearing function, severely dilated left atrium, severely dilated right atrium. no evidence of pulmonary hypertension continue PO lasix pt reports of having a follow up with her Primary microsoft dynamics consultant in two weeks. O2 supplementation monitor I/Os, daily weights fluid restriction diet D/C held due to hyponatremia Qualifiers: Dyspnea type: shortness of breath Qualified Code(s): R06.02 - Shortness of breath; R06.00 - Dyspnea, unspecified; R06.01 - Orthopnea (3) Acute kidney injury Current Visit: Yes Status: Acute Assessment and plan: Likely secondary to diuretic use continue PO lasix. Pt has underlying CKD, will continue to closely monitor (4) Hypokalemia Current Visit: Yes Status: Acute Assessment and plan: K supplemented continue to monitor electrolytes and replace as needed (5) Atrial fibrillation Current Visit: No Status: Chronic Assessment and plan: Rate controlled with BB anticoagulated with Coumadin INR within therapeutic range goal INR: 2-3 Qualifiers: Atrial fibrillation type: chronic Qualified Code(s): I48.2 - Chronic atrial fibrillation (6) Diabetes mellitus Current Visit: No Status: Chronic Assessment and plan: Hold oral antihyperglycemic agents at this time continue sliding scale insulin algorithm monitor FS and BG ADA diet Qualifiers: Diabetes mellitus type: type 2 Diabetes mellitus complication status: without complication Diabetes mellitus longterm insulin use: without longterm use Qualified Code(s): E11.9 - Type 2 diabetes mellitus without complications (7) HTN (hypertension), benign Current Visit: Yes Status: Acute Assessment and plan: BP within acceptable range continue home medications (8) DVT prophylaxis Current Visit: No Status: Acute Assessment and plan: anticoagulated with coumadin (9) Hypothyroidism Current Visit: No Status: Chronic Assessment and plan: continue Levothyroxine Qualifiers: Hypothyroidism type: unspecified Qualified Code(s): E03.9 - Hypothyroidism , unspecified - Subjective Interval history: Pt seen and examined at bedside. Resting comfortably in bed and reports of feeling better. saturating well on room air and intermittently using oxygen during the day. She is however noted to have worsening of hyponatremia, she remains clinically asymptomatic, however given her current Na level, she needs close monitoring. Her HCTZ has been discontinued Urine Na and Osm ordered will closely monitor Na level q6h will consider nephrology evaluation if further deterioration occurs in Na level. - Constitutional Vitals: Temp Pulse Resp BP Pulse Ox 97.4 F L 61 17 104/68 91 11/29/16 10:39 11/29/16 10:39 11/29/16 10:39 11/29/16 10:39 11/29/16 10:39 General appearance: Present: cooperative, A&O X 3, morbidly obese, pleasant, no acute distress, answers questions appropriately - Head Head exam: Present: atraumatic, normocephalic - Eye Eye exam: Present: conjuntiva pink, sclera anicteric - Respiratory Respiratory exam: Absent: respiratory distress, wheezes - Cardiovascular Cardiovascular exam: Present: RRR, +S1, +S2. Absent: diastolic murmur, gallop, rubs, systolic murmur - GI/Abdominal GI/Abdominal exam: Present: normal bowel sounds, soft, no peritoneal signs. Absent: distended, tenderness - Extremities Exam Extremities exam: Present: warm, radial pulses palpable and symmetrical. Absent : calf tenderness, tenderness - Neurological Exam Neurological exam: Present: alert, oriented X3 - Psychiatric Psychiatric exam: Present: normal affect, normal mood Internal Medicine: Result - Labs CBC & Chem 7: 11/29/16 06:27 11/29/16 13:16 Labs: Short CBC 11/29/16 Range/Units 06:27 WBC 12.1 H (4.3-11.1) K/mcL Hgb 13.0 (11.5-15.4) g/dL Hct 41.1 (35.3-44.9) % Plt Count 280 (140-400) K/mcL Neutrophils # 8.1 (1.6-8.9) K/mcL BMP 11/29/16 11/29/16 06:27 13:16 Sodium 124 L 124 L Potassium 3.3 L Chloride 84 L Carbon Dioxide 33 H BUN 31 H Creatinine 1.27 H Glucose 120 H Calcium 8.7 - ABG Interpretation ABG results: ABG ABG pH 7.41 pH Units (7.32-7.45) 11/26/16 10:07 ABG pCO2 41 mmHg (35-45) 11/26/16 10:07 ABG pO2 112 mmHg (85-104) H 11/26/16 10:07 ABG O2 Saturation 98 % (95-98) 11/26/16 10:07 PT/INR, D-dimer PT 22.3 Seconds (9.4-12.1) H 11/29/16 06:27 Consult Discharge Plan - Plan Referrals: Vidhya Bland DO [Primary Care Provider] - (web request 11/27/2016)
[2016-11-29] MEDS: *HR* Warfarin 3 MG TABLET PO SCH (16:25)
[2016-11-29] MEDS: Magnesium Oxide 400 MG TABLET PO SCH (16:25)
[2016-11-30 01:08] LABS: Basophils # 0.1 K/mcL (0.0-0.2); Basophils % 0.4 %; Eosinophils # 0.3 K/mcL (0.0-0.6); Eosinophils % 2.4 %; Hematocrit 39.2 % (35.3-44.9); Hemoglobin 12.4 g/dL (11.5-15.4); Immature Granulocytes % 1.9 % (0-4); Lymphocytes # 2.8 K/mcL (0.6-4.6); Mean Corpuscular HGB Conc 31.6 g/dL (31.6-35.5); Mean Corpuscular Hemoglobin 22.8 pg (28.0-33.3); Mean Corpuscular Volume 72.2 fL (83.0-100.0); Mean Platelet Volume 9.2 fL (9.4-12.4); Monocytes # 1.6 K/mcL (0.0-1.3); Monocytes % 11.8 %; Neutrophils # 8.7 K/mcL (1.6-8.9); Platelet Count 308 K/mcL (140-400); Red Blood Count 5.43 M/mcL (3.82-4.97); Red Cell Distribution Width 16.3 % (11.5-14.5); Segmented Neutrophils % 63.5 %
[2016-11-30 01:09] LABS: INR 2.2; Prothrombin Time 24.4 Seconds (9.4-12.1)
[2016-11-30 01:16] LABS: Calcium 8.9 mg/dL (8.6-10.8); Magnesium 1.8 mg/dL (1.6-2.6); Phosphorous 3.1 mg/dL (2.3-4.7); Potassium 3.5 mEq/L (3.5-4.5)
[2016-11-30] MEDS: Ipratropium/Albuterol Neb 3 ML IH SCH ×5 (04:04→22:40)
[2016-11-30 08:28] LABS: Calcium 9.2 mg/dL (8.6-10.8); Potassium 3.7 mEq/L (3.5-4.5)
[2016-11-30] MEDS: Insulin LISPRO 300 UNITS/3 ML VIAL SQ SCH ×4 (09:03→20:49)
[2016-11-30] MEDS: Lisinopril 20 MG TABLET PO SCH (09:07)
[2016-11-30] MEDS: Aspirin Enteric Coated 81 MG Tablet PO SCH (09:07)
[2016-11-30] MEDS: Cholecalciferol (D-3) 1,000 UNIT TABLET PO SCH (09:08)
[2016-11-30] MEDS: hydrALAZINE 25 MG TABLET PO SCH ×2 (09:08→20:48)
[2016-11-30] MEDS: Azithromycin 250 MG TABLET PO SCH (09:08)
[2016-11-30] MEDS: Furosemide 40 MG TABLET PO SCH (09:08)
[2016-11-30] MEDS: cloNIDine HCl 0.1 MG TABLET PO SCH ×2 (09:08→20:48)
--- NOTE | 2016-11-30 09:57 | Nephrology Consult Note ---
Date of Encounter: 11/30/16 Time of Encounter: 09:54 Assessment and Plan (1) Hyponatremia Current Visit: Yes Status: Acute Patient presents with a sodium level of 128, review of outpatient labs demonstrate she had a sodium of 136 on 11/20/2016 and an average of 140 for the last year. Since admission her hydrochlorothiazide was held. She is currently receiving PO Lasix 40 mg twice a day for CHF exacerbation. - Nonsymptomatic hyponatremia - No history of hyponatremia - While on Lasix, urine sodium 21, urine osmolality is 247 Suspect hyponatremia, contraction alkalosis most setting of excess diuresis. Plan: - Continue to hold HCTZ - Hold by mouth furosemide through tomorrow - 500 mL normal saline run at 75 ML's per hour - Recheck sodium with a.m. labs (2) Hypothyroidism Current Visit: No Status: Chronic Patient is known history of hypothyroidism, review of outpatient TSH appropriate. continue home dose levothyroxine 112 MCG Qualifiers: Hypothyroidism type: unspecified Qualified Code(s): E03.9 - Hypothyroidism , unspecified (3) Metabolic alkalosis Current Visit: Yes Status: Acute Contraction alkalosis with a bicarbonate of 34 in a setting of diuresis. Plan: - Hold Lasix (4) Acute kidney injury Current Visit: Yes Status: Acute Acute kidney injury secondary to diuresis. Baseline creatinine 1.0, GFR greater than 60 review of outpatient labs suggestive for CKD stage II. Plan: as discussed above. (5) Microcytic anemia Current Visit: Yes Status: Acute Chronic. Hemoglobin 12.4 and hematocrit 39.2 at baseline. MCV 72.2 from baseline after review of outpatient labs. 11/20/2016: Iron 39, percent iron saturation 9, transferrin 296 Plan: - Ferritin. History of Present Illness - Reason for Consult Consult date: 11/30/16 Acute Kidney Injury, hyponatremia Requesting physician: Caterina Souza - Chief Complaint Dyspnea - History of Present Illness Ms. Mcdermott 81M Afib, HTN, hypothyroidism was admitted for dyspnea and found to have a sodium 128, she was asymptomatic upon presentation except for presenting symptoms of dyspnea. She is currently treated for CHF exacerbation. Upon admission her hydrochlorothiazide was held and she is provided oral Lasix. During her inpatient stay her sodium dropped to 124 but has been trending back to 127 currently. Patient states that she has never had a history of low sodium has been taking her hydrochlorothiazide since April. Prior to April she was on oral Lasix for lower extremity edema. She denies any changes in her diet , history of kidney disease, chronic steroid use or excess fluid intake. She follows up with her primary care provider frequently for her chronic medical conditions. Past Med Surg Social Fam HX - Past Medical History Medical history: atrial fibrillation, diabetes, hypertension, thyroid disease Psychiatric history: no psych history - Past Surgical History Surgical History: cholecystectomy, knee replacement - Social History Smoking Status: Never smoker Smokeless Tobacco Status: No Alcohol use: none Drug use: none - Family History Mother Living Status: Cause of : stroke Hx Family Cardiac Disorders: Yes (htn) Hx Family Neurologic Disorders: Yes (stroke) Father Living Status: Medications and Allergies Aspirin [Adult Low Dose Aspirin EC] 81 mg PO QAM 04/27/15 [History] Cholecalciferol (Vitamin D3) [Vitamin D3] 5,000 unit PO QAM 04/27/15 [History] Glimepiride [Amaryl] 0.5 mg PO QPM 04/27/15 [History] Glimepiride [Amaryl] 1 mg PO QAM 04/27/15 [History] Lisinopril [Zestril] 20 mg PO QAM 04/27/15 [History] Magnesium Oxide [Magnesium] 400 mg PO QPM 04/27/15 [History] Multivitamin/Iron/Folic Acid [Centrum Complete Multivit Tab] 1 each PO QAM 04/26 [History] Warfarin [Coumadin] 2 mg PO TUFR 04/27/15 [History] Warfarin [Coumadin] 3 mg PO SUMOWETHSA 04/27/15 [History] Metoprolol [Lopressor] 75 mg PO BID #60 tablet 05/02/15 [Rx] cephALEXin [Keflex] 500 mg PO TID #9 capsule 02/12/16 [Rx] Levothyroxine Sodium [Levoxyl] 112 mcg PO DAILY 11/26/16 [History] cloNIDine HCl [CloNIDine HCl] 0.1 mg PO BID 11/26/16 [History] hydrALAZINE [HydrALAZINE] 25 mg PO BID 11/26/16 [History] hydroCHLOROthiazide [Hydrochlorothiazide] 50 mg PO DAILY 11/26/16 [History] 3 Allergy/AdvReac Type Severity Reaction Status Date / Time No Known Allergies Allergy Verified 12/22/15 20:04 Review of Systems Constitutional: no excessive sweating, no weight loss Eyes: bilateral: blurred vision (patient denies), diplopia (patient denies) Nose, mouth and throat: no dizziness, no headache(s) Cardiovascular: no chest pain, no palpitations Respiratory: no cough, no dyspnea Gastrointestinal: no abdominal pain, no change in bowel habits Musculoskeletal: no muscle weakness, no numbness Integumentary: no hirsutism, no striae Psychiatric: no depression, no difficulty concentrating Endocrine: as per HPI Hematologic/Lymphatic: no easy bruising, no lymphadenopathy Exam - Vital Signs Vital signs: Initial Vital Signs Temp Pulse Resp BP Pulse Ox 97.7 F 82 16 205/73 92 11/26/16 09:07 11/26/16 09:07 11/26/16 09:07 11/26/16 09:07 11/26/16 09:07 Vital Signs - Last 8 Hours Temp Pulse Resp BP Pulse Ox 11/30/16 09:00 90 11/30/16 07:43 97.7 F 55 16 143/62 90 Intake and Output 11/29/16 11/30/16 11/30/16 23:59 07:59 15:59 Intake Total 240 / 240 Balance 240 / 240 Intake: Oral 240 / 240 Other: Meal Breakfast Percent of Meal Consumed 95% Blood Glucose* 116 122 - General Appearance Exam: General: Patient alert, awake, oriented 3, interactive, in no acute distress HEENT: Normocephalic, atraumatic, pupils equal reactive to light, nasal cavity patent and open septum median position, oral mucosa moist, uvula midline, neck supple trachea midline no palpable lymphadenopathy, no thyromegaly. Chest: Symmetric bilateral correlating with respiratory effort, effort nonlabored. Cardiac: Irregularly irregular heart rhythm and rate. no bruits appreciated bilateral carotids, Radial pulses 2+ bilateral, posterior tibial and dorsal pedal pulses 2+ bilateral. Respiratory: Clear to auscultation all lung nava Abdomen: Soft, nontender, positive bowel sounds, no palpable masses appreciated on examination Extremities: Symmetric bilateral, bilateral lower extremities with trace bilateral lower extremity edema patient moving all 4 extremities spontaneously. Neurologic: No focal deficits appreciated on examination. Face symmetric, muscle strength symmetric bilateral upper and lower extremities. Results - Lab Results 11/30/16 00:53 10/12/17 08:04 Most recent lab results ABG pH 7.41 pH Units (7.32-7.45) 11/26/16 10:07 ABG pCO2 41 mmHg (35-45) 11/26/16 10:07 ABG pO2 112 mmHg (85-104) H 11/26/16 10:07 ABG HCO3 26 mEq/L (21-27) 11/26/16 10:07 ABG O2 Saturation 98 % (95-98) 11/26/16 10:07 Calcium 9.2 mg/dL (8.6-10.8) 11/30/16 08:04 Phosphorus 3.1 mg/dL (2.3-4.7) 11/30/16 00:53 Magnesium 1.8 mg/dL (1.6-2.6) 11/30/16 00:53 Urine Sodium 21.0 mEq/L 11/29/16 09:15 Consult Discharge Plan - Plan Referrals: Vidhya Bland DO [Primary Care Provider] - (web request 11/27/2016)
[2016-11-30] MEDS ORDERED: 0.9 % Sodium Chloride 500 ML IVC SCH (10:45)
--- NOTE | 2016-11-30 11:43 | Internal Med Progress Note ---
Date of Encounter: 11/30/16 Time of Encounter: 11:36 - Assessment and plan (1) Hyponatremia Current Visit: Yes Status: Acute Assessment and plan: Improved from previous day clinically asymptomatic Nephrology on board and consultation appreciated Concern for overdiuresis, holding lasix at this time pt to receive gentle fluids (75cc/hr x 500cc total) as per nephrology will repeat Na level this evening will continue to closely monitor (2) Dyspnea Current Visit: Yes Status: Acute Assessment and plan: given clinical presentation, concern for CHF decompensation last 2D echo in 01/2016 reported LVEF of 60%, normal systolic function but indeterminate diastolic function repeat 2D echo showed LVEF of 55%, indeterminate diastolic function, mildly dilated right ventricle with normal appearing function, severely dilated left atrium, severely dilated right atrium. 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 O2 supplementation monitor I/Os, daily weights fluid restriction diet Qualifiers: Dyspnea type: shortness of breath Qualified Code(s): R06.02 - Shortness of breath; R06.00 - Dyspnea, unspecified; R06.01 - Orthopnea (3) Acute kidney injury Current Visit: Yes Status: Acute Assessment and plan: Likely secondary to diuretic use Holding lasix at this time, nephrology on board (4) Hypokalemia Current Visit: Yes Status: Acute (5) Atrial fibrillation Current Visit: No Status: Chronic Assessment and plan: Rate controlled with BB anticoagulated with Coumadin INR within therapeutic range goal INR: 2-3 Qualifiers: Atrial fibrillation type: chronic Qualified Code(s): I48.2 - Chronic atrial fibrillation (6) Diabetes mellitus Current Visit: No Status: Chronic Assessment and plan: Hold oral antihyperglycemic agents at this time continue sliding scale insulin algorithm monitor FS and BG ADA diet Qualifiers: Diabetes mellitus type: type 2 Diabetes mellitus complication status: without complication Diabetes mellitus termination clerk insulin use: without assisted use Qualified Code(s): E11.9 - Type 2 diabetes mellitus without complications (7) HTN (hypertension), benign Current Visit: Yes Status: Acute Assessment and plan: BP within acceptable range continue home medications (8) DVT prophylaxis Current Visit: No Status: Acute Assessment and plan: anticoagulated with coumadin (9) Hypothyroidism Current Visit: No Status: Chronic Assessment and plan: continue Levothyroxine Qualifiers: Hypothyroidism type: unspecified Qualified Code(s): E03.9 - Hypothyroidism , unspecified - Subjective Interval history: Pt seen and examined with family at bedside. Reports of feeling better. No overnight issues reported Hyponatremia improving but persists due to which nephrology was consulted. - Constitutional Vitals: Temp Pulse Resp BP Pulse Ox 97.7 F 55 16 143/62 90 11/30/16 07:43 11/30/16 07:43 11/30/16 07:43 11/30/16 07:43 11/30/16 09:00 General appearance: Present: cooperative, A&O X 3, morbidly obese, pleasant, no acute distress, answers questions appropriately - Head Head exam: Present: atraumatic, normocephalic - Eye Eye exam: Present: conjuntiva pink, sclera anicteric - Respiratory Respiratory exam: Absent: rales, respiratory distress, wheezes - Cardiovascular Cardiovascular exam: Present: RRR, +S1, +S2. Absent: diastolic murmur, gallop, rubs, systolic murmur - GI/Abdominal GI/Abdominal exam: Present: normal bowel sounds, soft, no peritoneal signs. Absent: distended, tenderness - Extremities Exam Extremities exam: Present: warm, radial pulses palpable and symmetrical. Absent : calf tenderness - Neurological Exam Neurological exam: Present: alert, oriented X3 - Psychiatric Psychiatric exam: Present: normal affect, normal mood Internal Medicine: Result - Labs CBC & Chem 7: 11/30/16 00:53 11/30/16 08:04 Labs: Short CBC 11/30/16 Range/Units 00:53 WBC 13.7 H (4.3-11.1) K/mcL Hgb 12.4 (11.5-15.4) g/dL Hct 39.2 (35.3-44.9) % Plt Count 308 (140-400) K/mcL Neutrophils # 8.7 (1.6-8.9) K/mcL BMP 11/29/16 11/30/16 11/30/16 18:50 00:53 00:53 Sodium 126 L 123 L 124 L Potassium 3.5 Chloride 82 L Carbon Dioxide 32 H BUN 40 H Creatinine 1.57 H Glucose 112 H Calcium 8.9 11/30/16 08:04 Sodium 127 L Potassium 3.7 Chloride 83 L Carbon Dioxide 34 H BUN 37 H Creatinine 1.42 H Glucose 119 H Calcium 9.2 - ABG Interpretation ABG results: ABG ABG pH 7.41 pH Units (7.32-7.45) 11/26/16 10:07 ABG pCO2 41 mmHg (35-45) 11/26/16 10:07 ABG pO2 112 mmHg (85-104) H 11/26/16 10:07 ABG O2 Saturation 98 % (95-98) 11/26/16 10:07 PT/INR, D-dimer PT 24.4 Seconds (9.4-12.1) H 11/30/16 00:53 Consult Discharge Plan - Plan Referrals: Vidhya Bland DO [Primary Care Provider] - (web request 11/27/2016)
[2016-11-30] MEDS: Magnesium Oxide 400 MG TABLET PO SCH (17:10)
[2016-11-30] MEDS ORDERED: *HR* Warfarin 2 MG TABLET PO ONE ×2 (18:00)
[2016-12-01] MEDS: Ipratropium/Albuterol Neb 3 ML IH SCH ×4 (03:48→21:15)
[2016-12-01 03:52] LABS: Basophils # 0.1 K/mcL (0.0-0.2); Basophils % 0.5 %; Eosinophils # 0.4 K/mcL (0.0-0.6); Eosinophils % 2.2 %; Hematocrit 43.2 % (35.3-44.9); Hemoglobin 13.8 g/dL (11.5-15.4); Immature Granulocytes % 1.5 % (0-4); Lymphocytes # 3.3 K/mcL (0.6-4.6); Lymphocytes % 20.9 %; Mean Corpuscular HGB Conc 31.9 g/dL (31.6-35.5); Mean Corpuscular Hemoglobin 22.8 pg (28.0-33.3); Mean Corpuscular Volume 71.4 fL (83.0-100.0); Mean Platelet Volume 8.5 fL (9.4-12.4); Monocytes # 1.8 K/mcL (0.0-1.3); Monocytes % 11.4 %; Neutrophils # 10.2 K/mcL (1.6-8.9); Platelet Count 319 K/mcL (140-400); Red Blood Count 6.05 M/mcL (3.82-4.97); Red Cell Distribution Width 17.2 % (11.5-14.5); Segmented Neutrophils % 63.5 %
[2016-12-01 04:07] LABS: Calcium 9.4 mg/dL (8.6-10.8); Phosphorous 3.2 mg/dL (2.3-4.7); Potassium 3.3 mEq/L (3.5-4.5)
[2016-12-01] MEDS: Insulin LISPRO 300 UNITS/3 ML VIAL SQ SCH ×4 (08:30→21:21)
[2016-12-01] MEDS: Cholecalciferol (D-3) 1,000 UNIT TABLET PO SCH (08:31)
[2016-12-01] MEDS: hydrALAZINE 25 MG TABLET PO SCH ×2 (08:31→21:21)
[2016-12-01] MEDS: cloNIDine HCl 0.1 MG TABLET PO SCH ×2 (08:31→21:21)
[2016-12-01] MEDS: Aspirin Enteric Coated 81 MG Tablet PO SCH (08:31)
[2016-12-01] MEDS: Lisinopril 20 MG TABLET PO SCH (08:31)
[2016-12-01] MEDS: Azithromycin 250 MG TABLET PO SCH (08:31)
--- NOTE | 2016-12-01 11:01 | Nephrology Progress Note ---
Date of Encounter: 12/01/16 Time of Encounter: 10:59 - Assessment and Plan (1) Hyponatremia Current Visit: Yes Status: Acute Patient presents with a sodium level of 128, review of outpatient labs demonstrate she had a sodium of 136 on 11/20/2016 and an average of 140 for the last year. Since admission her hydrochlorothiazide was held. She is currently receiving PO Lasix 40 mg twice a day for CHF exacerbation. - Nonsymptomatic hyponatremia - No history of hyponatremia - While on Lasix, urine sodium 21, urine osmolality is 247 Suspect hyponatremia, contraction alkalosis most setting of excess diuresis. 12/01: Sodium did not improve after 500 mL normal saline yesterday. Patient remained stable we will start 20 mg by mouth Lasix daily. Plan: - Furosemide 20mg PO daily - Ordered serum and urine osmolality. - Continue to hold HCTZ - Recheck sodium with a.m. labs (2) Hypothyroidism Current Visit: No Status: Chronic Patient is known history of hypothyroidism, review of outpatient TSH appropriate. continue home dose levothyroxine 112 MCG Qualifiers: Hypothyroidism type: unspecified Qualified Code(s): E03.9 - Hypothyroidism , unspecified (3) Metabolic alkalosis Current Visit: Yes Status: Acute Contraction alkalosis with a bicarbonate of 34 in a setting of diuresis. (4) Acute kidney injury Current Visit: Yes Status: Acute Acute kidney injury secondary to diuresis. Baseline creatinine 1.0, GFR greater than 60 review of outpatient labs suggestive for CKD stage II. Plan: as discussed above. (5) Microcytic anemia Current Visit: Yes Status: Acute Chronic. Hemoglobin 12.4 and hematocrit 39.2 at baseline. MCV 72.2 from baseline after review of outpatient labs. 11/20/2016: Iron 39, percent iron saturation 9, transferrin 296 - Ferritin 64 Plan: Plan per primary team. Subjective Principal diagnosis: Hyponatremia Interval history: Ms. Mcdermott evaluate a patient patient bedside. She denies any new medical changes overnight. She felt like she urinated frequently but denies any dysuria , blood in her urine or difficulty voiding. She is otherwise without change. Objective - Vital Signs Vital signs: Vital Signs Temp Pulse Resp BP Pulse Ox 12/01/16 08:37 97 12/01/16 07:07 97.4 F L 66 14 161/91 97 12/01/16 03:48 16 99 12/01/16 02:53 97.7 F 76 18 168/70 99 11/30/16 23:53 16 100 11/30/16 23:05 97.3 F L 64 18 174/95 99 11/30/16 19:29 97.7 F 66 18 170/69 92 11/30/16 15:19 97.8 F 56 18 148/67 93 11/30/16 12:19 97.4 F L 63 17 144/67 94 Intake and Output 11/30/16 12/01/16 12/01/16 23:59 07:59 15:59 Intake Total 1040 / 1040 120 / 120 Balance 1040 / 1040 120 / 120 Intake: Oral 1040 / 1040 120 / 120 Other: Meal Dinner Breakfast Percent of Meal Consumed 95% 100% Weight 103.419 kg Blood Glucose* 122 136 Patient Weight 12/01/16 23:59 Weight 103.419 kg - General Appearance Exam: General: Patient alert, awake, oriented 3, interactive, in no acute distress HEENT: Normocephalic, atraumatic, pupils equal reactive to light, nasal cavity patent and open septum median position, oral mucosa moist, uvula midline, neck supple trachea midline no palpable lymphadenopathy, no thyromegaly. Chest: Symmetric bilateral correlating with respiratory effort, effort nonlabored. Cardiac: Irregularly irregular heart rhythm and rate. no bruits appreciated bilateral carotids, Radial pulses 2+ bilateral, posterior tibial and dorsal pedal pulses 2+ bilateral. Respiratory: Clear to auscultation all lung nava Abdomen: Soft, nontender, positive bowel sounds, no palpable masses appreciated on examination Extremities: Symmetric bilateral, bilateral lower extremities with trace bilateral lower extremity edema patient moving all 4 extremities spontaneously. Neurologic: No focal deficits appreciated on examination. Face symmetric, muscle strength symmetric bilateral upper and lower extremities. - Lab 12/01/16 03:44 12/01/16 03:44 Most recent lab results ABG pH 7.41 pH Units (7.32-7.45) 11/26/16 10:07 ABG pCO2 41 mmHg (35-45) 11/26/16 10:07 ABG pO2 112 mmHg (85-104) H 11/26/16 10:07 ABG HCO3 26 mEq/L (21-27) 11/26/16 10:07 ABG O2 Saturation 98 % (95-98) 11/26/16 10:07 Calcium 9.4 mg/dL (8.6-10.8) 12/01/16 03:44 Phosphorus 3.2 mg/dL (2.3-4.7) 12/01/16 03:44 Magnesium 2.0 mg/dL (1.6-2.6) 12/01/16 03:44 Urine Sodium 21.0 mEq/L 11/29/16 09:15 Consult Discharge Plan - Plan Referrals: Vidhya Bland DO [Primary Care Provider] - (web request 11/27/2016)
--- NOTE | 2016-12-01 14:57 | Internal Med Progress Note ---
Date of Encounter: 12/01/16 Time of Encounter: 14:55 - Assessment and plan (1) Hyponatremia Current Visit: Yes Status: Acute Assessment and plan: Repeat Na dropped to 125 Will repeat Na and serum osm at 7pm repeat urine Na and urine osm If repeat Na is trending down, please call the mule driver (Dr. Hinojosa) fluid restriction decreased lasix to 20mg qdaily remains clinically asymptomatic continue to closely monitor (2) Dyspnea Current Visit: Yes Status: Acute Assessment and plan: given clinical presentation, concern for CHF decompensation last 2D echo in 01/2016 reported LVEF of 60%, normal systolic function but indeterminate diastolic function repeat 2D echo showed LVEF of 55%, indeterminate diastolic function, mildly dilated right ventricle with normal appearing function, severely dilated left atrium, severely dilated right atrium. no evidence of pulmonary hypertension Lasix 20mg PO qd pt reports of having a follow up with her Primary manager behavioral in two weeks. O2 supplementation monitor I/Os, daily weights fluid restriction diet Qualifiers: Dyspnea type: shortness of breath Qualified Code(s): R06.02 - Shortness of breath; R06.00 - Dyspnea, unspecified; R06.01 - Orthopnea (3) Acute kidney injury Current Visit: Yes Status: Acute Assessment and plan: Likely secondary to diuretic use will continue to monitor (4) Hypokalemia Current Visit: Yes Status: Acute Assessment and plan: K supplemented continue to monitor electrolytes and replace as needed (5) Atrial fibrillation Current Visit: No Status: Chronic Assessment and plan: Rate controlled with BB anticoagulated with Coumadin INR within therapeutic range goal INR: 2-3 Qualifiers: Atrial fibrillation type: chronic Qualified Code(s): I48.2 - Chronic atrial fibrillation (6) Diabetes mellitus Current Visit: No Status: Chronic Assessment and plan: Hold oral antihyperglycemic agents at this time continue sliding scale insulin algorithm monitor FS and BG ADA diet Qualifiers: Diabetes mellitus type: type 2 Diabetes mellitus complication status: without complication Diabetes mellitus parts counterman insulin use: without residential use Qualified Code(s): E11.9 - Type 2 diabetes mellitus without complications (7) HTN (hypertension), benign Current Visit: Yes Status: Acute Assessment and plan: BP within acceptable range continue home medications (8) DVT prophylaxis Current Visit: No Status: Acute Assessment and plan: anticoagulated with coumadin (9) Hypothyroidism Current Visit: No Status: Chronic Assessment and plan: continue Levothyroxine Qualifiers: Hypothyroidism type: unspecified Qualified Code(s): E03.9 - Hypothyroidism , unspecified - Subjective Interval history: Pt was evaluated by me numerous times throughout the day. Resting comfortably in bed and in no distress. remains hyponatremic and last Na level dropped to 125. Discharge on hold due to worsening hyponatremia - Constitutional Vitals: Temp Pulse Resp BP Pulse Ox 97.5 F L 55 14 115/74 94 12/01/16 11:16 12/01/16 11:16 12/01/16 11:16 12/01/16 11:16 12/01/16 11:16 General appearance: Present: cooperative, A&O X 3, morbidly obese, pleasant, no acute distress, answers questions appropriately - Head Head exam: Present: atraumatic, normocephalic - Eye Eye exam: Present: conjuntiva pink, sclera anicteric - Respiratory Respiratory exam: Absent: rales, respiratory distress, wheezes - Cardiovascular Cardiovascular exam: Present: RRR, +S1, +S2. Absent: diastolic murmur, gallop, rubs, systolic murmur - GI/Abdominal GI/Abdominal exam: Present: normal bowel sounds, soft, no peritoneal signs. Absent: distended, tenderness - Extremities Exam Extremities exam: Present: warm, radial pulses palpable and symmetrical. Absent : calf tenderness - Neurological Exam Neurological exam: Present: alert, oriented X3 - Psychiatric Psychiatric exam: Present: normal affect, normal mood Internal Medicine: Result - Labs CBC & Chem 7: 12/01/16 03:44 12/01/16 11:58 Labs: Short CBC 12/01/16 Range/Units 03:44 WBC 16.0 H (4.3-11.1) K/mcL Hgb 13.8 (11.5-15.4) g/dL Hct 43.2 (35.3-44.9) % Plt Count 319 (140-400) K/mcL Neutrophils # 10.2 H (1.6-8.9) K/mcL BMP 12/01/16 12/01/16 03:44 11:58 Sodium 127 L 125 L Potassium 3.3 L Chloride 85 L Carbon Dioxide 33 H BUN 33 H Creatinine 1.24 H Glucose 125 H Calcium 9.4 - ABG Interpretation ABG results: ABG ABG pH 7.41 pH Units (7.32-7.45) 11/26/16 10:07 ABG pCO2 41 mmHg (35-45) 11/26/16 10:07 ABG pO2 112 mmHg (85-104) H 11/26/16 10:07 ABG O2 Saturation 98 % (95-98) 11/26/16 10:07 PT/INR, D-dimer PT 22.0 Seconds (9.4-12.1) H 12/01/16 03:44 Consult Discharge Plan - Plan Referrals: Enrrique Hinojosa MD [Partnered Physician] - 12/15/16 4:00 pm (please follow up as schedule...) Vidhya Bland DO [Primary Care Provider] - (web request 11/27/2016) Seng Eastman DO [Partnered Physician] - (called Photocopying Machine Operator and they will patient for an early appointment)
[2016-12-01] MEDS: Magnesium Oxide 400 MG TABLET PO SCH (17:01)
[2016-12-01] MEDS ORDERED: *HR* Warfarin 3 MG TABLET PO ONE (18:00)
[2016-12-01 20:14] LABS: Sodium, Urine < 20.0 mEq/L
[2016-12-01 23:09] LABS: Osmolality,Urine 318 mOsm/kg (300-900)
[2016-12-02] MEDS: Ipratropium/Albuterol Neb 3 ML IH SCH ×2 (04:05→10:46)
[2016-12-02 05:48] LABS: Basophils # 0.1 K/mcL (0.0-0.2); Basophils % 0.5 %; Eosinophils # 0.3 K/mcL (0.0-0.6); Eosinophils % 2.3 %; Hematocrit 39.1 % (35.3-44.9); Lymphocytes # 2.2 K/mcL (0.6-4.6); Lymphocytes % 19.3 %; Mean Corpuscular HGB Conc 31.2 g/dL (31.6-35.5); Mean Corpuscular Hemoglobin 22.7 pg (28.0-33.3); Mean Corpuscular Volume 72.7 fL (83.0-100.0); Mean Platelet Volume 8.7 fL (9.4-12.4); Monocytes # 1.3 K/mcL (0.0-1.3); Monocytes % 11.7 %; Neutrophils # 7.2 K/mcL (1.6-8.9); Platelet Count 296 K/mcL (140-400); Red Blood Count 5.38 M/mcL (3.82-4.97); Red Cell Distribution Width 16.3 % (11.5-14.5); Segmented Neutrophils % 64.2 %
[2016-12-02 05:54] LABS: Hemoglobin 12.2 g/dL (11.5-15.4)
[2016-12-02 05:57] LABS: INR 2.2; Prothrombin Time 23.8 Seconds (9.4-12.1)
[2016-12-02 06:15] LABS: Calcium 9.2 mg/dL (8.6-10.8); Magnesium 1.9 mg/dL (1.6-2.6); Phosphorous 2.6 mg/dL (2.3-4.7); Potassium 3.8 mEq/L (3.5-4.5)
[2016-12-02] MEDS ORDERED: Furosemide 20 MG TABLET PO SCH (09:00)
--- NOTE | 2016-12-02 09:42 | Discharge Summary ---
Date of Encounter: 12/02/16 Time of Encounter: 08:45 - Discharge Diagnosis (1) Hyponatremia Priority: Secondary Status: Acute (2) Dyspnea Priority: Primary Status: Acute Qualifiers: Dyspnea type: shortness of breath Qualified Code(s): R06.02 - Shortness of breath; R06.00 - Dyspnea, unspecified; R06.01 - Orthopnea (3) Acute kidney injury Priority: Secondary Status: Acute (4) Hypokalemia Priority: Secondary Status: Resolved (5) Atrial fibrillation Priority: Secondary Status: Chronic Qualifiers: Atrial fibrillation type: chronic Qualified Code(s): I48.2 - Chronic atrial fibrillation (6) Diabetes mellitus Priority: Secondary Status: Chronic Qualifiers: Diabetes mellitus type: type 2 Diabetes mellitus complication status: without complication Diabetes mellitus landscape crew member insulin use: without landscape crew member use Qualified Code(s): E11.9 - Type 2 diabetes mellitus without complications (7) HTN (hypertension), benign Priority: Secondary Status: Acute (8) DVT prophylaxis Priority: Secondary Status: Acute (9) Hypothyroidism Priority: Secondary Status: Chronic Qualifiers: Hypothyroidism type: unspecified Qualified Code(s): E03.9 - Hypothyroidism , unspecified (10) CHF exacerbation Priority: Primary Status: Acute Qualifiers: Congestive heart failure type: unspecified congestive heart failure type Qualified Code(s): I50.9 - Heart failure, unspecified - Discharge Medications Prescriptions: Albuterol Sulfate [Albuterol Inhaler] 2 puff IH Q4HR PRN #1 [email or web address] PRN Reason: Shortness Of Breath Furosemide [Lasix] 20 mg PO DAILY #30 tablet Home Medications: Aspirin [Adult Low Dose Aspirin EC] 81 mg PO QAM 04/27/15 [History] Cholecalciferol (Vitamin D3) [Vitamin D3] 5,000 unit PO QAM 04/27/15 [History] Glimepiride [Amaryl] 0.5 mg PO QPM 04/27/15 [History] Glimepiride [Amaryl] 1 mg PO QAM 04/27/15 [History] Lisinopril [Zestril] 20 mg PO QAM 04/27/15 [History] Magnesium Oxide [Magnesium] 400 mg PO QPM 04/27/15 [History] Multivitamin/Iron/Folic Acid [Centrum Complete Multivit Tab] 1 each PO QAM 04/26 [History] Warfarin [Coumadin] 2 mg PO TUFR 04/27/15 [History] Warfarin [Coumadin] 3 mg PO SUMOWETHSA 04/27/15 [History] Metoprolol [Lopressor] 75 mg PO BID #60 tablet 05/02/15 [Rx] Levothyroxine Sodium [Levoxyl] 112 mcg PO DAILY 11/26/16 [History] cloNIDine HCl [CloNIDine HCl] 0.1 mg PO BID 11/26/16 [History] hydrALAZINE [HydrALAZINE] 25 mg PO BID 11/26/16 [History] Albuterol Sulfate [Albuterol Inhaler] 2 puff IH Q4HR PRN #1 [email or web address] 12/02/16 [Rx] Furosemide [Lasix] 20 mg PO DAILY #30 tablet 12/02/16 [Rx] Allergies/Adverse Reactions: 3 Allergy/AdvReac Type Severity Reaction Status Date / Time No Known Allergies Allergy Verified 12/22/15 20:04 Date of admission: 11/29/16 14:52 Primary care physician: Vidhya Bland DO Consults: 11/30/16 07:50 Consult to Nephrology [CONS] Routine Consulting Provider: Kidney Deysi/LARS/ARIADNA/SUNNI Reason for Consult: hyponatremia Call Completed: Yes Discharging clinician: Caterina Souza Anticipated date of discharge: 12/02/16 - Patient Status Disposition: Home, Self-Care Condition: Good Functional capacity at discharge: independent ambulation Overall status at discharge: patient is back to baseline - Discharge Instructions Follow Up With: Enrrique Hinojosa MD [Partnered Physician] - 12/15/16 4:00 pm (please follow up as schedule...) Vidhya Bland DO [Primary Care Provider] - (web request 11/27/2016) Seng Eastman DO [Partnered Physician] - (called [employer] Retrofit Technician and they will patient for an early appointment) Additional Instructions: Please follow up with your primary care physician within five days after your discharge from the hospital. Please follow up with your general forecaster within one to two weeks after your discharge from the hospital. Please follow up with archeologist within one week after your discharge from the hospital. Please obtain the prescribed lab work prior to your follow up appointment with your archeologist. Your home medications have been changed as follows: 1. Hydrochlorothiazide has been discontinued 2. Lasix 20mg once a day has been added Please take these medications as prescribed. Please continue to wear home oxygen at all times Resume all other medications as prescribed by your primary care physician. - Diet and Activity Activity: increase activity as tolerated, wear oxygen at all times Diet: diabetic diet, low salt diet (FLUID RESTRICTION DIET ) Hospital course: Ms. Mcdermott is a 81 year old female with PMH of Afib on coumadin, HTN, hypothyroidism, CKD,DM who was admitted for management of acute respiratory distress. Pt's clinical presentation was concerning for CHF decompensation due to which she was started on IV diuresis. She improved with diuretics and her echo reported LVEF of 55% with dilated RV and severely dilated LA and RA. Her hospital course was further complicated by worsening hyponatremia. She was found to be hyponatremic during admission however Hyponateremia worsened due to which nephrology was consulted. Her home dose of hctz was discontinued and her lasix dose was adjusted. She remained clinically asymptomatic despite her hyponatremia. She was closely monitored, and her hyponatremia started to improve. She is currently hemodynamically stable and saturating well at her baseline home oxygen level. She will be discharged to home with follow up with PCP, cardiolology, and nephrology. - Time Spent with Patient Total time spent providing and/or coordinating discharge services: Greater than 30 minutes - Constitutional Vitals: Temp Pulse Resp BP Pulse Ox 97.8 F 69 17 172/88 98 12/02/16 08:14 12/02/16 08:14 12/02/16 08:14 12/02/16 08:14 12/02/16 08:14 General appearance: Present: cooperative, A&O X 3, morbidly obese, pleasant, no acute distress, answers questions appropriately - Head Head exam: Present: atraumatic, normocephalic - Eye Eye exam: Present: conjuntiva pink, sclera anicteric - Respiratory Respiratory exam: Present: CTAB. Absent: accessory muscle use, rales, rhonchi, wheezes - Cardiovascular Cardiovascular exam: Present: irregular rhythm, +S1, +S2. Absent: diastolic murmur, gallop, rubs, systolic murmur - GI/Abdominal GI/Abdominal exam: Present: normal bowel sounds, soft, no peritoneal signs. Absent: distended, tenderness - Extremities Exam Extremities exam: Present: full ROM, warm, radial pulses palpable and symmetrical. Absent: calf tenderness - Neurological Exam Neurological exam: Present: alert, oriented X3 - Psychiatric Psychiatric exam: Present: normal affect, normal mood
[2016-12-02] MEDS: hydrALAZINE 25 MG TABLET PO SCH (09:44)
[2016-12-02] MEDS: Insulin LISPRO 300 UNITS/3 ML VIAL SQ SCH (09:44)
[2016-12-02] MEDS: Cholecalciferol (D-3) 1,000 UNIT TABLET PO SCH (09:44)
[2016-12-02] MEDS: Aspirin Enteric Coated 81 MG Tablet PO SCH (09:44)
[2016-12-02] MEDS: cloNIDine HCl 0.1 MG TABLET PO SCH (09:44)
[2016-12-02] MEDS: Lisinopril 20 MG TABLET PO SCH (09:45)
--- NOTE | 2016-12-02 10:42 | Nephrology Progress Note ---
Date of Encounter: 12/02/16 Time of Encounter: 10:40 - Assessment and Plan (1) Acute kidney injury Current Visit: Yes Status: Acute The patient has mild acute kidney injury on chronic kidney disease. Renal function seems to stabilize. She can be monitored on outpatient basis. (2) HTN (hypertension), benign Current Visit: Yes Status: Acute Goal blood pressures less than 140/90. She may need further titration of her antihypertensive medication. (3) Hyponatremia Current Visit: Yes Status: Acute The patient has hyponatremia of unclear etiology. At this time the most likely culprit is hydrochlorothiazide which has been discontinued. With fluid restriction and discontinuation of her thiazide diuretic her sodium levels are improving. She is asymptomatic and safe to be monitored on an outpatient basis. I recommend having her follow-up with [facility] in 4-6 weeks with a BMP 1 week after discharge and 1-2 weeks prior to clinic visit. The labs should have a urine and serum osmolality as well. (4) Diabetes mellitus Current Visit: No Status: Chronic Per the primary team. Goal hemoglobin A1c is less than 7.0. Qualifiers: Diabetes mellitus type: type 2 Diabetes mellitus complication status: without complication Diabetes mellitus mail distribution scheme examiner insulin use: without mail distribution scheme examiner use Qualified Code(s): E11.9 - Type 2 diabetes mellitus without complications Subjective Principal diagnosis: Hyponatremia Interval history: Patient seen and evaluated. Patient without new complaint. She anticipates being discharged today. Objective - Vital Signs Vital signs: Vital Signs Temp Pulse Resp BP Pulse Ox 12/02/16 08:14 97.8 F 69 17 172/88 98 12/02/16 04:05 16 95 12/02/16 03:37 97.7 F 66 16 152/87 95 12/01/16 23:59 97.4 F L 71 15 131/71 97 12/01/16 21:15 18 98 12/01/16 19:56 98.1 F 60 16 155/70 98 12/01/16 16:29 97.6 F 72 16 169/81 97 12/01/16 15:32 16 100 12/01/16 11:16 97.5 F L 55 14 115/74 94 12/01/16 10:43 16 98 Intake and Output 12/01/16 12/02/16 12/02/16 23:59 07:59 15:59 Intake Total 360 / 360 0 / 0 Output Total 550 / 550 500 / 500 0 / 0 Balance -190 / -190 -500 / -500 0 / 0 Intake: Oral 360 / 360 0 / 0 Output: Urine 550 / 550 500 / 500 0 / 0 Other: # Voids 2 Weight 103.4 kg Blood Glucose* 136 115 Patient Weight 12/02/16 23:59 Weight 103.4 kg - General Appearance General appearance: Present: well-developed, well-nourished EENT: Present: ATNC Neck: Present: supple Additional Comments: Respirations are unlabored. Cardiology: Present: regular rate Neurologic: Present: alert and oriented x3 Psychiatric: Present: mood/affect appropriate - Lab 12/02/16 05:32 12/02/16 05:32 Most recent lab results ABG pH 7.41 pH Units (7.32-7.45) 11/26/16 10:07 ABG pCO2 41 mmHg (35-45) 11/26/16 10:07 ABG pO2 112 mmHg (85-104) H 11/26/16 10:07 ABG HCO3 26 mEq/L (21-27) 11/26/16 10:07 ABG O2 Saturation 98 % (95-98) 11/26/16 10:07 Calcium 9.2 mg/dL (8.6-10.8) 12/02/16 05:32 Phosphorus 2.6 mg/dL (2.3-4.7) 12/02/16 05:32 Magnesium 1.9 mg/dL (1.6-2.6) 12/02/16 05:32 Urine Sodium < 20.0 mEq/L 12/01/16 19:20 Consult Discharge Plan - Plan Instructions: Acute Kidney Injury (DC), Chronic Hypertension (DC), Fluid Restriction (DC) Additional Instructions: Please follow up with your primary care physician within five days after your discharge from the hospital. Please follow up with your predatory animal trapper within one to two weeks after your discharge from the hospital. Please follow up with advisory software engineer within one week after your discharge from the hospital. Please obtain the prescribed lab work prior to your follow up appointment with your advisory software engineer. Your home medications have been changed as follows: 1. Hydrochlorothiazide has been discontinued 2. Lasix 20mg once a day has been added Please take these medications as prescribed. Please continue to wear home oxygen at all times Resume all other medications as prescribed by your primary care physician. Referrals: Enrrique Hinojosa MD [Partnered Physician] - 12/15/16 4:00 pm (please follow up as schedule...) Vidhya Bland DO [Primary Care Provider] - (web request 11/27/2016) Seng Eastman DO [Partnered Physician] - (called Shipfitter Helper and they will patient for an early appointment) Prescriptions: Albuterol Sulfate [Albuterol Inhaler] 2 puff IH Q4HR PRN #1 [email or web address] PRN Reason: Shortness Of Breath Furosemide [Lasix] 20 mg PO DAILY #30 tablet
[2016-12-02 11:30] VITALS: BP 119/73
== END 2016-12-02 11:47 | disposition home or self-care (01) | DRG 291 ==
LOC: EMEROO 08:58 → 2ANU 08:58 → SUATTDRO 12:11 → 2ANU 12:33
PROVIDERS: ADMIT Internal Medicine Hematology & Oncology; ATTEND Internal Medicine

== ENCOUNTER 2017-10-09 16:33 | Inpatient (IN) ==
[2017-10-09 17:24] LABS: Basophils # 0.1 K/mcL (0.0-0.2); Basophils % 0.7 %; Eosinophils # 0.3 K/mcL (0.0-0.6); Hematocrit 35.5 % (35.3-44.9); Hemoglobin 10.7 g/dL (11.5-15.4); Immature Granulocytes % 0.9 % (0-4); Lymphocytes # 2.6 K/mcL (0.6-4.6); Lymphocytes % 20.1 %; Mean Corpuscular HGB Conc 30.1 g/dL (31.6-35.5); Mean Corpuscular Hemoglobin 23.7 pg (28.0-33.3); Mean Corpuscular Volume 78.7 fL (83.0-100.0); Mean Platelet Volume 8.3 fL (9.4-12.4); Monocytes # 1.2 K/mcL (0.0-1.3); Monocytes % 9.1 %; Neutrophils # 8.6 K/mcL (1.6-8.9); Platelet Count 341 K/mcL (140-400); Red Blood Count 4.51 M/mcL (3.82-4.97); Red Cell Distribution Width 18.4 % (11.5-14.5); Segmented Neutrophils % 67.2 %
--- NOTE | 2017-10-09 17:24 | Emergency Department Note ---
Disposition Clinical Impression: CHF exacerbation Qualifiers: Heart failure type: unspecified Qualified Code(s): I50.9 - Heart failure, unspecified Disposition: Admitted As Inpatient Condition: Good Forms: ED Satisfaction Letter, Work/School Release Time of Disposition: 19:20 General Adult HPI - General Chief complaint: ED General Medical Stated complaint: Bi-lateral feet edema Time Seen by Provider: 10/09/17 16:37 Source: patient Limitations: no limitations Nursing Notes Reviewed: Yes Vital Signs Reviewed: Yes - History of Present Illness HPI Narrative: 82 year old female presents to the eD with complaints of BLE swelling and Bilateral hand swelling and has had CHF excerbations in the past although she is not experincing dyspnea or chest pain at this time. SHe tates that she had a total knee surgery 3 months ago without history of DVT/PEs and states that she was seen by her PCP today and they were concerned that she was retaining fluids again. PAtinet take 40mg lasix at home daikory. PAtinet states that she has had elevated BNPs in the past. PAtient is now having idiffuclty with walking due to increased swelling to bilateral legs. She states she can push her leg in and it dents. Pain Scale: 0 - Related Data Home Medications Medication Instructions Recorded Confirmed Glimepiride [Amaryl] 0.5 mg PO QPM 04/27/15 10/09/17 Glimepiride [Amaryl] 1 mg PO QAM 04/27/15 10/09/17 Lisinopril [Zestril] 20 mg PO BID 04/27/15 10/09/17 Magnesium Oxide [Magnesium] 400 mg PO QPM 04/27/15 10/09/17 Multivitamin/Iron/Folic Acid 1 each PO QAM 04/27/15 10/09/17 [Centrum Complete Multivit Tab] Warfarin [Coumadin] 2 mg PO HS 04/27/15 10/09/17 cloNIDine HCl [CloNIDine HCl] 0.1 mg PO BID 11/26/16 10/09/17 Amlodipine Besylate 5 mg PO DAILY 09/03/17 10/09/17 Aspirin [Lo-Dose Aspirin EC] 81 mg PO DAILY 09/03/17 10/09/17 Cholecalciferol (D-3) [Vitamin D] 5,000 unit PO DAILY 09/03/17 10/09/17 Hydralazine HCl 75 mg PO Q8H 09/03/17 10/09/17 Metoprolol [Lopressor] 25 mg PO BID 09/03/17 10/09/17 Furosemide [Lasix] 40 mg PO DAILY 10/09/17 10/09/17 Levothyroxine [Synthroid] 150 mcg PO DAILY 10/09/17 10/09/17 Allergies Allergy/AdvReac Type Severity Reaction Status Date / Time amlodipine [From [facility]] Allergy See Verified 08/28/17 13:38 Comments Review of Systems: As Per HPI Constitutional: Denies: fever, chills, weakness, weight change Eyes: Denies: eye pain, eye discharge, vision change ENT ED: Denies: ear pain, throat pain, dental pain, hearing loss, epistaxis, congestion, dysphagia Cardiovascular: Reports: other (swelling to BLE and Bilatera hands). Denies: chest pain, palpitations, dyspnea on exertion, edema, syncope Respiratory: Denies: cough, dyspnea, wheezes, hemoptysis, stridor Gastrointestinal: Denies: abdominal pain, nausea, vomiting, diarrhea, constipation, hematemesis, melena, hematochezia Genitourinary: Denies: dysuria, frequency, hematuria, discharge Musculoskeletal: Denies: back pain, neck pain, arthralgia, myalgia Integumentary: Denies: rash, abrasion, lesions Neurological: Denies: headache, weakness, numbness, paresthesias, confusion, abnormal gait, vertigo Psychiatric: Denies: anxiety, depression, suicidal thoughts, homicidal thoughts , auditory hallucinations, visual hallucinations Endocrine: Denies: fatigue Hematological/Lymphatic: Denies: easy bleeding, easy bruising Allergic/Immunologic: Denies: facial swelling, urticaria Past Medical History - Past Medical History Medical history: Reports: atrial fibrillation, diabetes, GERD, hyperlipidemia, hypertension, thyroid disease Surgical history: Reports: cholecystectomy, knee replacement Psychiatric history: Reports: no psych history GANG SAWYER history: Reports: no GANG SAWYER history - Social History Smoking Status: Never smoker Smokeless Tobacco Status: No Alcohol use: Reports: none Drug use: Reports: none Physical Exam (+) 3 pedal edema and edema in bilateral hands (-) Homans sign - General Limitations: no limitations General appearance: alert, in no apparent distress - Head Head exam: atraumatic, normocephalic, normal inspection - Eye Eye exam: Present: normal appearance, PERRL, EOMI - Expanded Eye Exam Pupils: Bilateral: reactive - ENT ENT exam: normal exam, normal oropharynx, mucous membranes moist - Expanded ENT Exam External ear exam: Present: normal external inspection Mouth exam: Present: normal external inspection Teeth exam: Present: normal inspection Throat exam: Present: normal inspection - Neck Neck exam: Present: normal inspection, full ROM, trachea midline - Chest Chest inspection: Present: normal inspection, symmetric chest wall rise - Respiratory Respiratory exam: Present: normal lung sounds bilaterally - Cardiovascular Cardiovascular exam: Present: regular rate, normal rhythm, normal heart sounds - Abdominal Exam Abdominal exam: Present: soft, Non-Tender. Absent: tenderness, distention, guarding, rebound, rigidity - Extremities Exam Extremities exam: Present: normal inspection, full ROM. Absent: tenderness, pedal edema - Expanded Upper Extremity Exam Shoulder exam: Present: normal inspection, full ROM Arm exam: Present: normal inspection, full ROM Elbow exam: Present: normal inspection, full ROM Forearm/Wrist exam: Present: normal inspection, full ROM Hand exam: Present: normal inspection, full ROM Vascular exam: Normal: capillary refill, radial pulse - Expanded Lower Extremity Exam Hip/Pelvis exam: Present: normal inspection, full ROM Upper leg exam: Present: normal inspection, full ROM Knee exam: Present: normal inspection, full ROM Lower leg exam: Present: normal inspection, full ROM, swelling Ankle exam: Present: normal inspection, full ROM Foot/toe exam: Present: normal inspection, full ROM, swelling Neurovascular/Tendon exam: Absent: motor deficit, sensory deficit, tendon deficit - Back Exam Back exam: Present: normal inspection, full ROM. Absent: tenderness - Neurological Exam Neurological exam: Present: alert, oriented X3 - Expanded Neurological Exam Patient oriented to: Present: person, place, time Coma Scale Eye Opening: Spontaneous Coma Scale Motor Response: Obeys Commands Coma Scale Verbal Response: Oriented Coma Scale Total: 15 - Psychiatric Psychiatric exam: Present: normal affect, normal mood - Skin Skin exam: Present: warm, dry, intact, normal color Course Course Narrative: we will do a cardiac workup on patient. Low suspsicion for DVT/PE. Tayler this is CHF. lasix therapy IV - Consultations Consultation #1: discussed case with Dr. Stover and he accepts patinet to his service for medicine Time: 19:20 Vital Signs Temperature 97.7 F 10/09/17 16:53 Pulse Rate 80 10/09/17 16:53 Respiratory Rate 18 10/09/17 16:53 Blood Pressure 160/88 10/09/17 16:53 O2 Sat by Pulse Oximetry 93 10/09/17 16:53 Temperature 97.7 F 10/09/17 17:10 Pulse Rate 80 10/09/17 17:10 Respiratory Rate 18 10/09/17 17:10 Blood Pressure 160/88 10/09/17 17:10 O2 Sat by Pulse Oximetry 97 10/09/17 17:14 Oxygen Delivery Oxygen Delivery Nasal Cannula Medical Decision Making - Medical Records Medical records reviewed: Yes I reviewed the patient's medical records. - Lab Data Lab results reviewed: Yes I reviewed the patient's lab results. Result diagrams: 10/09/17 17:11 10/09/17 17:11 Lab Results 10/09/17 10/09/17 10/09/17 Range/Units 17:11 17:11 17:11 WBC 12.8 H (4.3-11.1) K/mcL RBC 4.51 (3.82-4.97) M/mcL Hgb 10.7 L D (11.5-15.4) g/dL Hct 35.5 (35.3-44.9) % MCV 78.7 L (83.0-100.0) fL MCH 23.7 L (28.0-33.3) pg MCHC 30.1 L (31.6-35.5) g/dL RDW 18.4 H (11.5-14.5) % Plt Count 341 (140-400) K/mcL MPV 8.3 L (9.4-12.4) fL Immature Gran % 0.9 (0-4) % Seg Neutrophils % 67.2 % Lymphocytes % 20.1 % Monocytes % 9.1 % Eosinophils % 2.0 % Basophils % 0.7 % Neutrophils # 8.6 (1.6-8.9) K/mcL Lymphocytes # 2.6 (0.6-4.6) K/mcL Monocytes # 1.2 (0.0-1.3) K/mcL Eosinophils # 0.3 (0.0-0.6) K/mcL Basophils # 0.1 (0.0-0.2) K/mcL PT 29.1 H (9.4-12.1) Seconds INR 2.6 APTT 45.3 H (26.0-36.0) Seconds Sodium (136-145) mEq/L Potassium (3.5-5.1) mEq/L Chloride (98-107) mEq/L Carbon Dioxide (23-29) mEq/L BUN (8-23) mg/dL Creatinine (0.60-1.20) mg/dL Est GFR ( Amer) (> 60) Est GFR (Non-Af Amer) (> 60) BUN/Creatinine Ratio (6-26) Glucose (70-105) mg/dL Calculated Osmolality (280-300) Calcium (8.6-10.3) mg/dL Troponin I (< 0.04) ng/mL B-Natriuretic Peptide 441 H (Less than 100) pg/mL 10/09/17 Range/Units 17:11 WBC (4.3-11.1) K/mcL RBC (3.82-4.97) M/mcL Hgb (11.5-15.4) g/dL Hct (35.3-44.9) % MCV (83.0-100.0) fL MCH (28.0-33.3) pg MCHC (31.6-35.5) g/dL RDW (11.5-14.5) % Plt Count (140-400) K/mcL MPV (9.4-12.4) fL Immature Gran % (0-4) % Seg Neutrophils % % Lymphocytes % % Monocytes % % Eosinophils % % Basophils % % Neutrophils # (1.6-8.9) K/mcL Lymphocytes # (0.6-4.6) K/mcL Monocytes # (0.0-1.3) K/mcL Eosinophils # (0.0-0.6) K/mcL Basophils # (0.0-0.2) K/mcL PT (9.4-12.1) Seconds INR APTT (26.0-36.0) Seconds Sodium 136 (136-145) mEq/L Potassium 3.9 (3.5-5.1) mEq/L Chloride 100 (98-107) mEq/L Carbon Dioxide 28 (23-29) mEq/L BUN 19 (8-23) mg/dL Creatinine 0.90 (0.60-1.20) mg/dL Est GFR ( Amer) > 60 (> 60) Est GFR (Non-Af Amer) 60 (> 60) BUN/Creatinine Ratio 21 (6-26) Glucose 124 H (70-105) mg/dL Calculated Osmolality 286 (280-300) Calcium 9.3 (8.6-10.3) mg/dL Troponin I < 0.03 (< 0.04) ng/mL B-Natriuretic Peptide (Less than 100) pg/mL - Radiology Data Radiology results reviewed: Yes I reviewed the patient's radiology results. - EKG Data EKG #1 EKG attestation: Yes I reviewed and interpreted this EKG. EKG results narrative: atrial fibrillation with rate of 87. NO STEMI. no change from 08/28/17 [id number]
[2017-10-09 17:40] LABS: INR 2.6; Prothrombin Time 29.1 Seconds (9.4-12.1)
[2017-10-09 17:42] LABS: Activated Partial Thrombo Time 45.3 Seconds (26.0-36.0)
[2017-10-09 17:52] LABS: Troponin I < 0.03 ng/mL (< 0.04)
[2017-10-09 17:54] LABS: BUN/Creatinine Ratio 21 (6-26); Blood Urea Nitrogen 19 mg/dL (8-23); Calcium 9.3 mg/dL (8.6-10.3); Carbon Dioxide 28 mEq/L (23-29); Chloride 100 mEq/L (98-107); Glucose 124 mg/dL (70-105); Osmolality,Calculated 286 (280-300); Potassium 3.9 mEq/L (3.5-5.1); Sodium 136 mEq/L (136-145); eGFR For Non-African Americans 60 (> 60)
[2017-10-09] MEDS ORDERED: Naloxone 0.4 MG/ML INJ IVP PRN (23:11)
[2017-10-09] MEDS ORDERED: Dextrose Gel 15 GM/37.5 ML TUBE PO PRN ×2 (23:11)
[2017-10-09] MEDS ORDERED: *HR* Dextrose 50 % in Water (Syg) 50 ML SYRINGE IVP PRN (23:11)
[2017-10-09] MEDS ORDERED: Acetaminophen 325 MG TABLET PO PRN (23:11)
[2017-10-09] MEDS ORDERED: D5% in Water 1,000 ML IVC PRN (23:11)
[2017-10-09] MEDS ORDERED: Furosemide 40 MG/4 ML VIAL IVP ONE (23:34)
--- NOTE | 2017-10-10 | Internal Med History&Physical ---
Date of Encounter: 10/09/17 Time of Encounter: 23:00 Internal Medicine - H&P: HPI Chief complaint: SOB Admitted From: Emergency Dept Plans for Post Hospital Care: Home History of present illness: Ms. Mcdermott is an 82 year old female who presents the ER tonight complaining of shortness of breath, edema, fatigue, and hypoxemia. She checked her oxygen levels at home and noted that her oxygen levels were around 88% on pulse oximetry. She therefore came to the hospital ER for evaluation. Workup in ER was suggestive of CHF and she was admitted to hospitalist service. Upon my assessment of the patient, patient states she has had recent knee replacement surgery several weeks ago and has had significant improvement in function and mobility since then. She went to inpatient rehabilitation and was discharged home recently for ongoing home therapy. She has been doing well with therapy, but she noted increasing edema and shortness of breath over the last few days. She denies any fevers, chills, chest pain, vomiting, or diarrhea. She denies any history of CHF or COPD. However, she states she has home oxygen at home that she uses on a PRN basis. She noted her dyspnea and hypoxemia, so she started using her oxygen and came to the ER. After searching old records, I noted that she had an ECHO performed last month which showed severe pulmonary hypertension. She does not recall having heard that diagnosis before. She states she normally functions pretty well with occasional need for oxygen at nighttime. However, over the last few weeks, it has progressively worsened. Past Med Surg Social Fam HX - Past Medical History Attestation: Yes The following information was validated with the patient. Source: patient, old records reviewed Medical history: atrial fibrillation, diabetes, GERD, hyperlipidemia, hypertension, thyroid disease Additional medical history: Severe Pulmonary HTN Psychiatric history: no psych history - Past Surgical History Surgical History: cholecystectomy, knee replacement Additional surgical history: RTKR 09/03/17 PER - Social History Smoking Status: Never smoker Smokeless Tobacco Status: No Alcohol use: none Drug use: none Current living situation: Home - Independent Activity Level: Independent ambulation, Uses cane/walker Recent Out of Country Travel Within the Last 8 Weeks: No - Family History Mother Living Status: Hx Family Cardiac Disorders: Yes (htn) Hx Family Neurologic Disorders: Yes (stroke) Father Living Status: Internal Medicine - H&P: Meds Glimepiride [Amaryl] 0.5 mg PO QPM 04/27/15 [History] Glimepiride [Amaryl] 1 mg PO QAM 04/27/15 [History] Lisinopril [Zestril] 20 mg PO BID 04/27/15 [History] Magnesium Oxide [Magnesium] 400 mg PO QPM 04/27/15 [History] Multivitamin/Iron/Folic Acid [Centrum Complete Multivit Tab] 1 each PO QAM 04/26 [History] Warfarin [Coumadin] 2 mg PO HS 04/27/15 [History] cloNIDine HCl [CloNIDine HCl] 0.1 mg PO BID 11/26/16 [History] Amlodipine Besylate 5 mg PO DAILY 09/03/17 [History] Aspirin [Lo-Dose Aspirin EC] 81 mg PO DAILY 09/03/17 [History] Cholecalciferol (D-3) [Vitamin D] 5,000 unit PO DAILY 09/03/17 [History] Hydralazine HCl 75 mg PO Q8H 09/03/17 [History] Metoprolol [Lopressor] 25 mg PO BID 09/03/17 [History] Furosemide [Lasix] 40 mg PO DAILY 10/09/17 [History] Levothyroxine [Synthroid] 150 mcg PO DAILY 10/09/17 [History] 3 Allergy/AdvReac Type Severity Reaction Status Date / Time amlodipine [From [facility]] Allergy See Verified 08/28/17 13:38 Comments - Constitutional Constitutional: fatigue, no chills, no fever(s) - EENT Eyes: no blurry vision, no change in vision Ears: no ear pain, no tinnitus Nose, mouth and throat: no nasal congestion, no nasal discharge, no sore throat - Cardiovascular Cardiovascular ROS IM: dyspnea, dyspnea on exertion, edema, no chest pain, no lightheadedness, no palpitations, no syncope - Respiratory Respiratory: dyspnea, dyspnea on exertion, no cough, no hemoptysis, no wheezing , no pain on inspiration, no chest congestion, no excessive phlegm production, no change in phlegm color, no pain with cough - Gastrointestinal Gastrointestinal: no abdominal pain, no diarrhea, no hematemesis, no hematochezia, no melena, no nausea, no vomiting - Genitourinary Genitourinary: no dysuria, no flank pain, no hematuria - Musculoskeletal Musculoskeletal ROS IM: arthralgias, no back pain - Integumentary Integumentary IM: no rash, no jaundice - Neurological Neurological ROS: no dizziness, no focal weakness, no frequent falls, no headache(s) - Psychiatric Psychiatric: no anxiety, no depression - Endocrine Endocrine IM: no polydipsia, no polyuria - Hematologic/Lymphatic Hematologic/Lymphatic: easy bruising - Constitutional Vitals: Temp Pulse Resp BP Pulse Ox 97.8 F 93 17 195/83 97 10/09/17 22:21 10/09/17 22:21 10/09/17 22:21 10/09/17 22:21 10/09/17 22:21 General appearance: Present: cooperative, mild distress, A&O X 3, pleasant, answers questions appropriately Exam: see below - Head Head exam: Present: atraumatic, normal inspection - Eye Eye exam: Present: EOMI, PERRL. Absent: scleral icterus - ENT ENT exam: Present: mucous membranes dry, normal exam, normal oropharynx - Neck Neck exam general surgery: Present: full ROM, supple. Absent: tenderness, nuchal rigidity, thyromegaly - Expanded Neck Exam Neck exam: Absent: carotid bruit - Respiratory Respiratory exam: Present: decreased breath sounds (bases), CTAB. Absent: chest wall tenderness, respiratory distress, rhonchi, wheezes - Cardiovascular Cardiovascular exam: Present: irregular rhythm, +S1, +S2, systolic murmur ( grade 2). Absent: diastolic murmur - GI/Abdominal GI/Abdominal exam: Present: normal bowel sounds, soft. Absent: guarding, hepatomegaly, mass, rebound, splenomegaly, tenderness - Extremities Exam Extremities exam: Present: normal capillary refill, pedal edema (3+ bilaterally) , warm, radial pulses palpable and symmetrical. Absent: calf tenderness, joint swelling, tenderness - Back Exam Back exam: Absent: CVA tenderness (L), CVA tenderness (R) - Neurological Exam Neurological exam: Present: alert, CN II-XII intact, oriented X3, no focal deficits - Psychiatric Psychiatric exam: Present: normal affect, normal mood - Skin Skin exam: Present: dry, intact, warm Internal Med - H&P Results - Labs CBC & Chem 7: 10/09/17 17:11 10/09/17 17:11 - EKG Data -: EKG Interpreted by Myself - EKG Data Prior EKG available for review: no EKG comments: 10/10/17 00:05 atrial fibrillation - Diagnostic Studies Chest x-ray Status: image reviewed by me (small right pleural effusion; no appreciable chf findings) - Assessment and plan (1) Acute respiratory failure with hypoxia Current Visit: Yes Status: Acute Assessment and plan: 1. I suspect this is due to right heart failure from pulmonary HTN. 2. Will gingerly diurese and provide oxygen support. 3. No sign of wheezing or need for steroids/bronchodilators at this time. Will monitor clinically and treat as necessary. (2) Right heart failure Current Visit: Yes Status: Acute Assessment and plan: 1. Likely due to pulmonary HTN. 2. Patient denies any prior knowledge of diagnosis and/or prior work-up. 3. Will order CTA chest to evaluate for PE/chronic thromboembolism. 4. Patient chronically anticoagulated with Coumadin. 5. Patient may need further work-up (right heart catheterization, PFT's, etc.) . 6. Patient will need to see pulmonology at some point -- outpatient vs inpatient. Qualifiers: Heart failure chronicity: acute Qualified Code(s): I50.811 - Acute right heart failure (3) Atrial fibrillation Current Visit: Yes Status: Chronic Assessment and plan: 1. Rate controlled. 2. Continue home meds as appropriate. 3. On Coumadin for anti-coagulation. Qualifiers: Atrial fibrillation type: chronic Qualified Code(s): I48.2 - Chronic atrial fibrillation (4) DVT prophylaxis Current Visit: Yes Status: Acute Assessment and plan: 1. Anti-coagulated with Coumadin. - VTE Reasons for not Prescribing Prophylaxis: Not indicated-Anticoagulated or INR therapeutic
[2017-10-10] MEDS: hydrALAZINE 25 MG TABLET PO SCH ×3 (00:16→16:46)
[2017-10-10] MEDS ORDERED: Isovue-370 500 ML INFUS..BTL IV ONE (00:27)
[2017-10-10 04:34] LABS: Basophils # 0.1 K/mcL (0.0-0.2); Basophils % 0.5 %; Eosinophils # 0.2 K/mcL (0.0-0.6); Eosinophils % 1.2 %; Hematocrit 29.8 % (35.3-44.9); Immature Granulocytes % 0.9 % (0-4); Lymphocytes # 1.9 K/mcL (0.6-4.6); Lymphocytes % 14.6 %; Mean Corpuscular HGB Conc 30.2 g/dL (31.6-35.5); Mean Corpuscular Volume 76.2 fL (83.0-100.0); Mean Platelet Volume 8.4 fL (9.4-12.4); Monocytes # 1.1 K/mcL (0.0-1.3); Monocytes % 8.8 %; Neutrophils # 9.6 K/mcL (1.6-8.9); Platelet Count 292 K/mcL (140-400); Red Blood Count 3.91 M/mcL (3.82-4.97); Red Cell Distribution Width 18.5 % (11.5-14.5)
[2017-10-10 04:39] LABS: INR 2.9; Prothrombin Time 32.6 Seconds (9.4-12.1)
[2017-10-10 05:03] LABS: Alanine Aminotransferase 10 Units/L (7-52); Alkaline Phosphatase 70 Units/L (34-104); Aspartate Amino Transferase 14 Units/L (13-39); BUN/Creatinine Ratio 21 (6-26); Bilirubin,Total 0.9 mg/dL (0.3-1.0); Blood Urea Nitrogen 17 mg/dL (8-23); Calcium 8.8 mg/dL (8.6-10.3); Carbon Dioxide 28 mEq/L (23-29); Chloride 101 mEq/L (98-107); Globulin 3.1 g/dL (2.4-3.5); Glucose 94 mg/dL (70-105); Magnesium 1.6 mg/dL (1.6-2.6); Osmolality,Calculated 285 (280-300); Potassium 3.5 mEq/L (3.5-5.1); Sodium 137 mEq/L (136-145); Total Protein 6.1 g/dL (6.4-8.9); eGFR For Non-African Americans > 60 (> 60)
[2017-10-10] MEDS: Insulin LISPRO 300 UNITS/3 ML VIAL SQ SCH ×3 (08:22→16:46)
[2017-10-10] MEDS: Lisinopril 20 MG TABLET PO SCH ×2 (09:41→20:32)
[2017-10-10] MEDS: cloNIDine HCl 0.1 MG TABLET PO SCH ×2 (09:41→20:32)
[2017-10-10] MEDS: Aspirin Enteric Coated 81 MG Tablet PO SCH (09:42)
[2017-10-10] MEDS: Multivit/Ca/Min/Fe/FA 1 TAB TABLET PO SCH (09:42)
[2017-10-10] MEDS: Furosemide 40 MG/4 ML VIAL IVP SCH ×2 (09:42→20:32)
[2017-10-10] MEDS: Cholecalciferol (D-3) 1,000 UNIT TABLET PO SCH (09:42)
--- NOTE | 2017-10-10 15:04 | Internal Med Progress Note ---
Hospitalist Progress Note - Encounter Date of Encounter: 10/10/17 Time of Encounter: 09:00 - Subjective Interval History: Ms. Mcdermott is an 82 year old female with known PMH of atrial fibrillation, diabetes, GERD, hyperlipidemia, hypertension, chronic hypoxic resp failure uses 2 lit O2 at home and hypothyroidism pt presented to ER with worsening SOB and b/ l LE edema. Pt was admitted in the hospital and started her on IV diuresis. Pt states her symptoms better today. Denied any CP. Still has mild SOB and b/l LE edema. - Exam Vitals: Temp Pulse Resp BP Pulse Ox 97.7 F 78 18 156/85 98 10/10/17 11:32 10/10/17 11:32 10/10/17 11:32 10/10/17 11:32 10/10/17 11:32 Exam: Gen: Alert, awake, Oriented to time,place and person Chest: Diminished breath sounds B/L, mild wheezing, No crackles, No rales Heart: S1S2+ Afib, No murmurs Abd: Soft, NT, BS +, No organomegaly Ext: 2+ pitting edema, pulses are palpable, No calf tenderness Neuro : Benign findings Skin: No rash. - Assessment and Plan (1) Acute on chronic diastolic (congestive) heart failure Current Visit: Yes Status: Acute Assessment and Plan: 2D Echo from 09/05 showed LVEF 55%. Severe pulm HTN cont IV diuresis with Lasix strict I & O resumed all other home meds (2) Acute respiratory failure with hypoxia Current Visit: Yes Status: Acute Assessment and Plan: Due to CHF exacerbation Pt did mention she does use 2 lit O2 at home.. does have chronic hypoxic resp failure cont Duoneb and O2 (3) Atrial fibrillation Current Visit: Yes Status: Chronic Assessment and Plan: Chronic rate controlled with Metoprolol on Coumadin for anti coag (4) DVT prophylaxis Current Visit: Yes Status: Acute Assessment and Plan: Anti-coagulated with Coumadin. - Time Spent with Patient Total time spent is greater than 50% in coordination of care (as documented) at patient's floor/unit and/or counseling patient: Internal Medicine: Result - Labs CBC & Chem 7: 10/10/17 04:13 10/10/17 04:13 Labs: Short CBC 10/10/17 Range/Units 04:13 WBC 12.9 H (4.3-11.1) K/mcL Hgb 9.0 L D (11.5-15.4) g/dL Hct 29.8 L (35.3-44.9) % Plt Count 292 (140-400) K/mcL Neutrophils # 9.6 H (1.6-8.9) K/mcL BMP 10/10/17 04:13 Sodium 137 Potassium 3.5 Chloride 101 Carbon Dioxide 28 BUN 17 Creatinine 0.80 Glucose 94 Calcium 8.8 Liver Function 10/10/17 Range/Units 04:13 Total Bilirubin 0.9 (0.3-1.0) mg/dL AST 14 (13-39) Units/L ALT 10 (7-52) Units/L Alkaline Phosphatase 70 (34-104) Units/L Albumin 3.0 L (3.5-5.7) g/dL - ABG Interpretation ABG results: PT/INR, D-dimer PT 32.6 Seconds (9.4-12.1) H 10/10/17 04:13 - Impressions Impressions Chest CTA 10/10/17 10:00 IMPRESSION: 1. No evidence of a pulmonary embolism. 2. Cardiomegaly, with biatrial enlargement. 3. Heterogeneous appearance of the lungs, most likely secondary to pulmonary edema, or less likely air trapping. 4. Small bilateral pleural effusions. 5. Severe L1 compression fracture, which is more compressed when compared with June 2017, and likely acute on chronic. D/ / 10/10/2017 11:05:26 Luigi Frey MD / Alina Leavitt Interpreting Provider: Luigi Frey MD - VTE Reasons for not Prescribing Prophylaxis: Not indicated-Anticoagulated or INR therapeutic Consult Discharge Plan - Plan Referrals: Vidhya Bland, [Primary Care Provider] - (3) Atrial fibrillation Qualifiers: Atrial fibrillation type: chronic Qualified Code(s): I48.2 - Chronic atrial fibrillation
[2017-10-10] MEDS: Magnesium Oxide 400 MG TABLET PO SCH (16:46)
--- NOTE | 2017-10-10 16:46 | Electrocardiograph Report ---
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
[2017-10-10] MEDS ORDERED: *HR* Warfarin 1 MG TABLET PO ONE (18:00)
[2017-10-10] MEDS ORDERED: Warfarin perPT PO PRN (18:00)
[2017-10-11] MEDS: hydrALAZINE 25 MG TABLET PO SCH ×3 (00:18→15:08)
[2017-10-11 06:50] LABS: Basophils # 0.1 K/mcL (0.0-0.2); Basophils % 0.5 %; Eosinophils # 0.3 K/mcL (0.0-0.6); Eosinophils % 2.1 %; Hematocrit 30.4 % (35.3-44.9); Hemoglobin 9.5 g/dL (11.5-15.4); Immature Granulocytes % 1.1 % (0-4); Lymphocytes # 1.9 K/mcL (0.6-4.6); Lymphocytes % 15.6 %; Mean Corpuscular HGB Conc 31.3 g/dL (31.6-35.5); Mean Corpuscular Hemoglobin 24.2 pg (28.0-33.3); Mean Corpuscular Volume 77.6 fL (83.0-100.0); Mean Platelet Volume 8.4 fL (9.4-12.4); Monocytes # 1.3 K/mcL (0.0-1.3); Monocytes % 10.4 %; Neutrophils # 8.5 K/mcL (1.6-8.9); Platelet Count 303 K/mcL (140-400); Red Blood Count 3.92 M/mcL (3.82-4.97); Red Cell Distribution Width 18.4 % (11.5-14.5); Segmented Neutrophils % 70.3 %
[2017-10-11 07:00] LABS: INR 2.6; Prothrombin Time 29.7 Seconds (9.4-12.1)
[2017-10-11 07:11] LABS: BUN/Creatinine Ratio 19 (6-26); Blood Urea Nitrogen 16 mg/dL (8-23); Calcium 8.4 mg/dL (8.6-10.3); Carbon Dioxide 31 mEq/L (23-29); Chloride 96 mEq/L (98-107); Glucose 106 mg/dL (70-105); Magnesium 1.7 mg/dL (1.6-2.6); Osmolality,Calculated 282 (280-300); Potassium 3.3 mEq/L (3.5-5.1); Sodium 135 mEq/L (136-145); eGFR For Non-African Americans > 60 (> 60)
[2017-10-11] MEDS: Insulin LISPRO 300 UNITS/3 ML VIAL SQ SCH ×3 (07:42→16:54)
--- NOTE | 2017-10-11 07:56 | Internal Med Progress Note ---
Hospitalist Progress Note - Encounter Date of Encounter: 10/11/17 Time of Encounter: 07:54 - Subjective Interval History: Ms. Mcdermott is an 82 year old female with known PMH of atrial fibrillation, diabetes, GERD, hyperlipidemia, hypertension, chronic hypoxic resp failure uses 2 lit O2 at home and hypothyroidism pt presented to ER with worsening SOB and b/ l LE edema. Pt was admitted in the hospital and started her on IV diuresis. Pt states her symptoms better today. Denied any CP. SOB also better. b/l LE edema + - Exam Vitals: Temp Pulse Resp BP Pulse Ox 98.1 F 88 18 144/78 97 10/11/17 07:12 10/11/17 07:12 10/11/17 07:12 10/11/17 07:12 10/11/17 07:12 Exam: Gen: Alert, awake, Oriented to time,place and person Chest: Diminished breath sounds B/L, mild wheezing, No crackles, No rales Heart: S1S2+ Afib, No murmurs Abd: Soft, NT, BS +, No organomegaly Ext: 2+ pitting edema, pulses are palpable, No calf tenderness Neuro : Benign findings Skin: No rash. - Assessment and Plan (1) Acute on chronic diastolic (congestive) heart failure Current Visit: Yes Status: Acute Assessment and Plan: 2D Echo from 09/05 showed LVEF 55%. Severe pulm HTN cont IV diuresis with Lasix strict I & O Had -2465 net balance y/d Cont other home meds (2) Acute respiratory failure with hypoxia Current Visit: Yes Status: Acute Assessment and Plan: Due to CHF exacerbation Pt did mention she does use 2 lit O2 at home.. does have chronic hypoxic resp failure cont Duoneb and O2 CTA of chest negative for PE (3) Compression fracture of lumbar spine, non-traumatic Current Visit: Yes Status: Acute Assessment and Plan: Reviewed CTA of chest worsening compression fx of L1 spine however pt denied any back pain, radiculopathy symptoms no weakness in extremities Pt refused to see any specialist regarding this (4) Atrial fibrillation Current Visit: Yes Status: Chronic Assessment and Plan: Chronic rate controlled with Metoprolol on Coumadin for anti coag (5) DVT prophylaxis Current Visit: Yes Status: Acute Assessment and Plan: Anti-coagulated with Coumadin. - Time Spent with Patient Total time spent is greater than 50% in coordination of care (as documented) at patient's floor/unit and/or counseling patient: Internal Medicine: Result - Labs CBC & Chem 7: 10/11/17 06:29 10/11/17 06:29 Labs: Short CBC 10/11/17 Range/Units 06:29 WBC 12.0 H (4.3-11.1) K/mcL Hgb 9.5 L (11.5-15.4) g/dL Hct 30.4 L (35.3-44.9) % Plt Count 303 (140-400) K/mcL Neutrophils # 8.5 (1.6-8.9) K/mcL BMP 10/11/17 06:29 Sodium 135 L Potassium 3.3 L Chloride 96 L Carbon Dioxide 31 H BUN 16 Creatinine 0.83 Glucose 106 H Calcium 8.4 L - ABG Interpretation ABG results: PT/INR, D-dimer PT 29.7 Seconds (9.4-12.1) H 10/11/17 06:29 - Impressions Impressions Chest CTA 10/10/17 10:00 IMPRESSION: 1. No evidence of a pulmonary embolism. 2. Cardiomegaly, with biatrial enlargement. 3. Heterogeneous appearance of the lungs, most likely secondary to pulmonary edema, or less likely air trapping. 4. Small bilateral pleural effusions. 5. Severe L1 compression fracture, which is more compressed when compared with June 2017, and likely acute on chronic. D/ / 10/10/2017 11:05:26 Luigi Frey MD / Alina Leavitt Interpreting Provider: Luigi Frey MD - VTE Reasons for not Prescribing Prophylaxis: Not indicated-Anticoagulated or INR therapeutic Consult Discharge Plan - Plan Referrals: Vidhya Bland, [Primary Care Provider] - (4) Atrial fibrillation Qualifiers: Atrial fibrillation type: chronic Qualified Code(s): I48.2 - Chronic atrial fibrillation
[2017-10-11] MEDS: Lisinopril 20 MG TABLET PO SCH ×2 (08:48→19:54)
[2017-10-11] MEDS: Aspirin Enteric Coated 81 MG Tablet PO SCH (08:49)
[2017-10-11] MEDS: Cholecalciferol (D-3) 1,000 UNIT TABLET PO SCH (08:49)
[2017-10-11] MEDS: Multivit/Ca/Min/Fe/FA 1 TAB TABLET PO SCH (08:49)
[2017-10-11] MEDS: Furosemide 40 MG/4 ML VIAL IVP SCH ×2 (08:50→17:08)
[2017-10-11] MEDS: cloNIDine HCl 0.1 MG TABLET PO SCH ×2 (08:50→19:55)
[2017-10-11] MEDS ORDERED: Furosemide 20 MG TABLET PO SCH (09:00)
[2017-10-11] MEDS: Magnesium Oxide 400 MG TABLET PO SCH (17:08)
[2017-10-11] MEDS ORDERED: *HR* Warfarin 2 MG TABLET PO ONE (18:00)
[2017-10-12] MEDS: hydrALAZINE 25 MG TABLET PO SCH ×3 (00:12→14:44)
[2017-10-12 04:47] LABS: INR 2.3
[2017-10-12 05:05] LABS: BUN/Creatinine Ratio 24 (6-26); Blood Urea Nitrogen 21 mg/dL (8-23); Calcium 8.4 mg/dL (8.6-10.3); Carbon Dioxide 33 mEq/L (23-29); Chloride 95 mEq/L (98-107); Glucose 107 mg/dL (70-105); Magnesium 1.8 mg/dL (1.6-2.6); Osmolality,Calculated 281 (280-300); Potassium 3.4 mEq/L (3.5-5.1); Sodium 134 mEq/L (136-145); eGFR For Non-African Americans > 60 (> 60)
[2017-10-12] MEDS: Insulin LISPRO 300 UNITS/3 ML VIAL SQ SCH ×3 (07:32→17:13)
[2017-10-12] MEDS: Furosemide 40 MG/4 ML VIAL IVP SCH (09:10)
[2017-10-12] MEDS: Multivit/Ca/Min/Fe/FA 1 TAB TABLET PO SCH (09:10)
[2017-10-12] MEDS: Aspirin Enteric Coated 81 MG Tablet PO SCH (09:10)
[2017-10-12] MEDS: cloNIDine HCl 0.1 MG TABLET PO SCH (09:10)
[2017-10-12] MEDS: Cholecalciferol (D-3) 1,000 UNIT TABLET PO SCH (09:10)
[2017-10-12] MEDS: Lisinopril 20 MG TABLET PO SCH (09:10)
--- NOTE | 2017-10-12 09:31 | Discharge Summary ---
- NOTES TO OUTPATIENT PROVIDER Notes to Outpatient Provider: f/u with PCP in one week. Please start taking Lasix 40mg BID x 5 days then continue at Daily. Also talk to your PCP to go off the Norvasc BP medication since that can cause leg edema too. Orders not resulted at time of discharge: Pending orders 10/13/17 04:00 PT/INR [Prothrombin Time INR] [COAG] AM 0400 10/14/17 04:00 PT/INR [Prothrombin Time INR] [COAG] AM 0400 Date of Encounter: 10/12/17 Time of Encounter: 09:28 - Discharge Diagnosis (1) Acute on chronic diastolic (congestive) heart failure Priority: Primary Status: Acute (2) Acute respiratory failure with hypoxia Priority: Primary Status: Acute (3) Compression fracture of lumbar spine, non-traumatic Priority: Secondary Status: Acute Qualifiers: Encounter type: subsequent encounter Lumbar vertebra fracture level: L1 Qualified Code(s): M48.56XD - Collapsed vertebra, not elsewhere classified, lumbar region, subsequent encounter for fracture with routine healing (4) Atrial fibrillation Priority: Secondary Status: Chronic Qualifiers: Atrial fibrillation type: chronic Qualified Code(s): I48.2 - Chronic atrial fibrillation (5) DVT prophylaxis Priority: Secondary Status: Acute Hospital course: Ms. Mcdermott is an 82 year old female with known PMH of atrial fibrillation, diabetes, GERD, hyperlipidemia, hypertension, chronic hypoxic resp failure uses 2 lit O2 at home and hypothyroidism pt presented to ER with worsening SOB and b/ l LE edema. Pt was admitted in the hospital and started her on IV diuresis. Pt states her symptoms better today. She does have worsening compression fx of L1 spine, however pt denied any back pain, radiculopathy symptoms and no weakness in extremities. Pt refused to see any specialist regarding this. Waiting on PT / OT eval. Pt is medically stable to d/c home today as per PT / OT recommendations - Time Spent with Patient Total time spent providing and/or coordinating discharge services: - Discharge Medications Prescriptions: Furosemide [Lasix] 40 mg PO BID #30 tablet Home Medications: Glimepiride [Amaryl] 0.5 mg PO QPM 04/27/15 [History] Glimepiride [Amaryl] 1 mg PO QAM 04/27/15 [History] Lisinopril [Zestril] 20 mg PO BID 04/27/15 [History] Magnesium Oxide [Magnesium] 400 mg PO QPM 04/27/15 [History] Multivitamin/Iron/Folic Acid [Centrum Complete Multivit Tab] 1 each PO QAM 04/26 [History] Warfarin [Coumadin] 2 mg PO HS 04/27/15 [History] cloNIDine HCl [CloNIDine HCl] 0.1 mg PO BID 11/26/16 [History] Amlodipine Besylate 5 mg PO DAILY 09/03/17 [History] Aspirin [Lo-Dose Aspirin EC] 81 mg PO DAILY 09/03/17 [History] Cholecalciferol (D-3) [Vitamin D] 5,000 unit PO DAILY 09/03/17 [History] Hydralazine HCl 75 mg PO Q8H 09/03/17 [History] Metoprolol [Lopressor] 25 mg PO BID 09/03/17 [History] Levothyroxine [Synthroid] 150 mcg PO DAILY 10/09/17 [History] Furosemide [Lasix] 40 mg PO BID #30 tablet 10/12/17 [Rx] Allergies/Adverse Reactions: 3 Allergy/AdvReac Type Severity Reaction Status Date / Time amlodipine [From [facility]] AdvReac See Verified 10/11/17 10:14 Comments Date of admission: 10/09/17 21:07 Primary care physician: Vidhya Bland DO Consults: 10/12/17 09:22 Consult to Physical Therapy [CONS] Routine Comment: Evaluate, develop and implement POC Reason for Consult: Deconditioning Does patient have active BEDREST order?: No Is patient medically & hemodynamically stable?: Yes Patient assessed for mobility or mobilized this visit?: Yes OT [Consult to Occupational Therapy] [CONS] Routine Comment: Evaluate, develop and implement POC Reason for Consult: Deconditioning Does patient have active BEDREST order?: No Is patient medically & hemodynamically stable?: Yes Patient assessed for mobility or mobilized this visit?: Yes - Constitutional Vitals: Temp Pulse Resp BP Pulse Ox 98.3 F 86 16 148/81 97 10/12/17 06:40 10/12/17 06:40 10/12/17 06:40 10/12/17 06:40 10/12/17 09:15 General appearance: Present: cooperative, mild distress, A&O X 3, pleasant, answers questions appropriately Exam: Gen: Alert, awake, Oriented to time,place and person Chest: Diminished breath sounds B/L, mild wheezing, No crackles, No rales Heart: S1S2+ Afib, No murmurs Abd: Soft, NT, BS +, No organomegaly Ext: 1-2+ pitting edema, pulses are palpable, No calf tenderness Neuro : Benign findings Skin: No rash. - Patient Status Disposition: Home Health Service Condition: Good Overall status at discharge: patient is back to baseline - Discharge Instructions Follow Up With: Vidhya Bland DO [Primary Care Provider] - - Diet and Activity Activity: as per physical therapy, increase activity as tolerated, wear oxygen at all times Diet: low salt diet - VTE Reasons for not Prescribing Prophylaxis: Not indicated-Anticoagulated or INR therapeutic
[2017-10-12 14:46] VITALS: BP 120/76
--- NOTE | 2017-10-12 17:10 | Physician Discharge Referral ---
Home Health/Hosp Referral Info Transfer to: Home Health Provider in Charge Post Discharge: PCP - Diagnosis (1) Acute on chronic diastolic (congestive) heart failure Status: Acute (2) Acute respiratory failure with hypoxia Status: Acute (3) Compression fracture of lumbar spine, non-traumatic Status: Acute (4) Atrial fibrillation Status: Chronic (5) DVT prophylaxis Status: Acute - Respiratory Orders Smoking Cessation: Smoking cessation has been advised. For more information, call the [place] Tobacco Quit Line at 5-318-GMXM-NOW. - Services Needed Following services are medically necessary services: Nursing, Physical Therapy, Occupational Therapy - Transfer Medications Prescriptions: Furosemide [Lasix] 40 mg PO BID #30 tablet Home Medications: Glimepiride [Amaryl] 0.5 mg PO QPM 04/27/15 [History] Glimepiride [Amaryl] 1 mg PO QAM 04/27/15 [History] Lisinopril [Zestril] 20 mg PO BID 04/27/15 [History] Magnesium Oxide [Magnesium] 400 mg PO QPM 04/27/15 [History] Multivitamin/Iron/Folic Acid [Centrum Complete Multivit Tab] 1 each PO QAM 04/26 [History] Warfarin [Coumadin] 2 mg PO HS 04/27/15 [History] cloNIDine HCl [CloNIDine HCl] 0.1 mg PO BID 11/26/16 [History] Amlodipine Besylate 5 mg PO DAILY 09/03/17 [History] Aspirin [Lo-Dose Aspirin EC] 81 mg PO DAILY 09/03/17 [History] Cholecalciferol (D-3) [Vitamin D] 5,000 unit PO DAILY 09/03/17 [History] Hydralazine HCl 75 mg PO Q8H 09/03/17 [History] Metoprolol [Lopressor] 25 mg PO BID 09/03/17 [History] Levothyroxine [Synthroid] 150 mcg PO DAILY 10/09/17 [History] Furosemide [Lasix] 40 mg PO BID #30 tablet 10/12/17 [Rx] Allergies/Adverse Reactions: 3 Allergy/AdvReac Type Severity Reaction Status Date / Time amlodipine [From [facility]] AdvReac See Verified 10/11/17 10:14 Comments Certification: Further, I certify that my clinical findings support that this patient is homebound (i.e. absences from home require considerable and taxing effort and are for medical reasons or sabianism services or infrequently or short duration when for other reasons) because: Homebound Reason: Patient requires assistance of a person or device to safely leave home Attestation: My signature below is to certify that this patient is under my care and that I, or nurse practitioner, or a physician's preschool teacher's assistant working with me, has a face-to -face encounter with this patient.
[2017-10-12] MEDS ORDERED: *HR* Warfarin 2 MG TABLET PO ONE (18:00)
== END 2017-10-12 17:49 | disposition home health service (06) | DRG 292 ==
LOC: EMEROOARM 16:33 → 2ANU 16:33 → OBSVTOIN 21:07 → 2ANU 21:46
PROVIDERS: ADMIT Family Medicine; ATTEND Pediatrics

== ENCOUNTER 2017-10-26 14:00 | Inpatient (IN) ==
[2017-10-26] MEDS ORDERED: Isovue-370 500 ML INFUS..BTL IV ONE (14:01)
[2017-10-26] MEDS ORDERED: Ipratropium/Albuterol Neb 3 ML IH ONE ×2 (14:06→15:17)
--- NOTE | 2017-10-26 14:10 | Emergency Department Note ---
Disposition Clinical Impression: HCAP (healthcare-associated pneumonia) Volume overload Qualifiers: Hypervolemia type: unspecified Qualified Code(s): E87.70 - Fluid overload, unspecified Disposition: Admitted As Inpatient Condition: Fair Referrals: Vidhya Bland DO [Primary Care Provider] - Forms: ED Satisfaction Letter SOB HPI - General Chief Complaint: ED Shortness of Breath/Dyspnea Stated Complaint: RICHARD Time Seen by Provider: 10/26/17 14:01 Source: patient Mode of arrival: EMS Limitations: no limitations Nursing Notes Reviewed: Yes Vital Signs Reviewed: Yes - History of Present Illness 82-year-old female history of atrial fibrillation on Coumadin, hypertension, diabetes who presents to the ER via EMS with a complaint of shortness of breath and cough. Patient states she has had a cough for roughly 3 days. Nonproductive. She said a little short of breath during that time. She lives at home alone with home health intervening. She states that she had a knee replacement roughly 2 months ago and has been wearing oxygen ever since. States that whenever she ambulates at home her oxygen goes down to roughly 84%. She also reports swelling in her right leg ever since the surgery. Denies a prior history of DVT or PE. No chest pain. No other complaints. Pt Subjective Complaint: shortness of breath, cough Onset (ago): day(s) Severity: moderate Consistency/Duration: intermittent Improves with: rest Worsens with: exertion Associated symptoms: Reports: cough. Denies: chest pain, fever, sputum production Treatment prior to arrival: oxygen Cough present: Yes Cough Description: Involuntary Cough Frequency: Intermittent Sputum production: No Sputum Amount: None - Related Data Home oxygen amount: 2 liters Home Medications Medication Instructions Recorded Confirmed Glimepiride [Amaryl] 0.5 mg PO QPM 04/27/15 10/26/17 Glimepiride [Amaryl] 1 mg PO QAM 04/27/15 10/26/17 Lisinopril [Zestril] 20 mg PO BID 04/27/15 10/26/17 Magnesium Oxide [Magnesium] 400 mg PO QPM 04/27/15 10/26/17 Multivitamin/Iron/Folic Acid 1 each PO QAM 04/27/15 10/26/17 [Centrum Complete Multivit Tab] Warfarin [Coumadin] 2 mg PO HS 04/27/15 10/26/17 cloNIDine HCl [CloNIDine HCl] 0.1 mg PO BID 11/26/16 10/26/17 Amlodipine Besylate 5 mg PO DAILY 09/03/17 10/26/17 Aspirin [Lo-Dose Aspirin EC] 81 mg PO DAILY 09/03/17 10/26/17 Cholecalciferol (D-3) [Vitamin D] 5,000 unit PO DAILY 09/03/17 10/26/17 Hydralazine HCl 75 mg PO Q8H 09/03/17 10/26/17 Metoprolol [Lopressor] 25 mg PO BID 09/03/17 10/26/17 Furosemide [Lasix] 40 mg PO DAILY 10/26/17 10/26/17 Levothyroxine [Synthroid] 112 mcg PO DAILY 10/26/17 10/26/17 Allergies Allergy/AdvReac Type Severity Reaction Status Date / Time amlodipine [From Norvasc] AdvReac See Verified 10/11/17 10:14 Comments All systems ED: reviewed and negative except as stated. Constitutional: Denies: fever Cardiovascular: Denies: chest pain Respiratory: Reports: cough, dyspnea. Denies: sputum production Gastrointestinal: Denies: abdominal pain, nausea, vomiting Past Medical History - Past Medical History Attestation: Yes The following information was validated with the patient. Source: patient Medical history: Reports: atrial fibrillation, diabetes, GERD, hyperlipidemia, hypertension, thyroid disease Surgical history: Reports: cholecystectomy, knee replacement Psychiatric history: Reports: no psych history CELL SUPPORT OPERATOR history: Reports: no CELL SUPPORT OPERATOR history - Social History Smoking Status: Never smoker Smokeless Tobacco Status: No Alcohol use: Reports: none Drug use: Reports: none Physical Exam - General Limitations: no limitations General appearance: alert, in no apparent distress - Head Head exam: atraumatic, normocephalic - Eye Eye exam: Present: normal appearance - ENT ENT exam: normal exam - Neck Neck exam: Present: normal inspection - Chest Chest inspection: Present: normal inspection, symmetric chest wall rise - Respiratory Respiratory exam: Present: other (Coarse breath sounds bilaterally worse on the right.) - Cardiovascular Cardiovascular exam: Present: regular rate, normal rhythm, normal heart sounds - Abdominal Exam Abdominal exam: Present: soft, Non-Tender. Absent: tenderness, distention, rigidity - Extremities Exam Extremities exam: Present: normal inspection, full ROM - Expanded Upper Extremity Exam Shoulder exam: Present: normal inspection, full ROM Arm exam: Present: normal inspection, full ROM Elbow exam: Present: normal inspection, full ROM Forearm/Wrist exam: Present: normal inspection, full ROM Hand exam: Present: normal inspection, full ROM - Expanded Lower Extremity Exam Hip/Pelvis exam: Present: normal inspection, full ROM Upper leg exam: Present: normal inspection, full ROM Knee exam: Present: normal inspection, full ROM Lower leg exam: Present: normal inspection, full ROM Ankle exam: Present: normal inspection, full ROM Foot/toe exam: Present: normal inspection, full ROM - Skin Skin exam: Present: warm, dry Course Course Narrative: Patient seen and examined. Vital signs reviewed. Plan for EKG, CTA, labs - Reevaluation(s) Reevaluation #1: Discussed results of ultrasound with the patient. She has bilateral lower extremity perineal DVTs. They do not appear acute. Given these findings I would not start heparin since this is likely not treatment failure since she was recently not on Coumadin and is postoperative. Currently waiting CTA. Vital Signs Pulse Rate 84 10/26/17 14:14 Respiratory Rate 16 10/26/17 14:14 Blood Pressure 188/116 10/26/17 14:14 O2 Sat by Pulse Oximetry 96 10/26/17 14:14 Temperature 98.1 F 10/26/17 14:17 Pulse Rate 88 10/26/17 19:49 Respiratory Rate 20 10/26/17 19:49 Blood Pressure 180/115 10/26/17 19:49 O2 Sat by Pulse Oximetry 96 10/26/17 19:49 Oxygen Delivery Oxygen Delivery Nasal Cannula Shortness of Breath/Dyspnea - [facility] Narrative Medical decision making narrative: 82-year-old female with 3 days of dyspnea as well as cough. She is hemodynamically stable on her usual oxygen supplementation requirement. Her EKG showed atrial fibrillation. CT negative for pulmonary embolism with lower airspace disease consistent with pneumonia in this clinical picture. She also appears volume overloaded. The patient was given broad-spectrum antibiotic coverage for recent admission after cultures were obtained. We began gentle diuresis with 40 mg of Lasix in the setting of her pulmonary hypertension. The patient is admitted to the hospitalist service for further management. - Lab Data Lab results reviewed: Yes I reviewed the patient's lab results. Result diagrams: 10/26/17 14:10/26/17 14:01 Lab Results 10/26/17 10/26/17 10/26/17 Range/Units 14:01 14:01 14:01 WBC 15.1 H (4.3-11.1) K/mcL RBC 4.08 (3.82-4.97) M/mcL Hgb 9.4 L (11.5-15.4) g/dL Hct 31.4 L (35.3-44.9) % MCV 77.0 L (83.0-100.0) fL MCH 23.0 L (28.0-33.3) pg MCHC 29.9 L (31.6-35.5) g/dL RDW 17.3 H (11.5-14.5) % Plt Count 334 (140-400) K/mcL MPV 8.6 L (9.4-12.4) fL Immature Gran % 1.9 (0-4) % Seg Neutrophils % 84.4 % Lymphocytes % 9.1 % Monocytes % 4.4 % Eosinophils % 0.0 % Basophils % 0.2 % Neutrophils # 12.8 H (1.6-8.9) K/mcL Lymphocytes # 1.4 (0.6-4.6) K/mcL Monocytes # 0.7 (0.0-1.3) K/mcL Eosinophils # 0.0 (0.0-0.6) K/mcL Basophils # 0.0 (0.0-0.2) K/mcL PT 24.3 H (9.4-12.1) Seconds INR 2.2 APTT 36.3 H (26.0-36.0) Seconds Sodium 132 L (136-145) mEq/L Potassium 3.9 (3.5-5.1) mEq/L Chloride 94 L (98-107) mEq/L Carbon Dioxide 30 H (23-29) mEq/L BUN 21 (8-23) mg/dL Creatinine 0.89 (0.60-1.20) mg/dL Est GFR ( Amer) > 60 (> 60) Est GFR (Non-Af Amer) > 60 (> 60) BUN/Creatinine Ratio 24 (6-26) Glucose 134 H (70-105) mg/dL Calculated Osmolality 279 L (280-300) Calcium 8.8 (8.6-10.3) mg/dL Troponin I 0.03 (< 0.04) ng/mL B-Natriuretic Peptide (Less than 100) pg/mL 10/26/17 Range/Units 14:17 WBC (4.3-11.1) K/mcL RBC (3.82-4.97) M/mcL Hgb (11.5-15.4) g/dL Hct (35.3-44.9) % MCV (83.0-100.0) fL MCH (28.0-33.3) pg MCHC (31.6-35.5) g/dL RDW (11.5-14.5) % Plt Count (140-400) K/mcL MPV (9.4-12.4) fL Immature Gran % (0-4) % Seg Neutrophils % % Lymphocytes % % Monocytes % % Eosinophils % % Basophils % % Neutrophils # (1.6-8.9) K/mcL Lymphocytes # (0.6-4.6) K/mcL Monocytes # (0.0-1.3) K/mcL Eosinophils # (0.0-0.6) K/mcL Basophils # (0.0-0.2) K/mcL PT (9.4-12.1) Seconds INR APTT (26.0-36.0) Seconds Sodium (136-145) mEq/L Potassium (3.5-5.1) mEq/L Chloride (98-107) mEq/L Carbon Dioxide (23-29) mEq/L BUN (8-23) mg/dL Creatinine (0.60-1.20) mg/dL Est GFR ( Amer) (> 60) Est GFR (Non-Af Amer) (> 60) BUN/Creatinine Ratio (6-26) Glucose (70-105) mg/dL Calculated Osmolality (280-300) Calcium (8.6-10.3) mg/dL Troponin I (< 0.04) ng/mL B-Natriuretic Peptide 1013 H (Less than 100) pg/mL - Radiology Data Radiology results reviewed: Yes I reviewed the patient's radiology results. Chest CTA 10/26/17 14:02 IMPRESSION: No convincing evidence for pulmonary embolism, limited by motion artifact. Diffuse ground-glass opacities and ill-defined bilateral lower lobe airspace opacities, favoring air trapping. Infectious/inflammatory process is possible in the proper clinical setting. Compression deformities of L1 and T6, similar to previous examination. D/ / Jorge Alberto Redmond MD / Jorge Alberto Redmond MD Interpreting Provider: Jorge Alberto Redmond MD Chest X-Ray 10/26/17 14:05 IMPRESSION: New patchy right lower lobe airspace opacity with small right pleural effusion. Findings suggest possible pneumonia. Recommend clinical correlation and follow-up to resolution. D/ / Ortega Nguyen MD / Ortega Nguyen MD Interpreting Provider: Ortega Nguyen MD - EKG Data EKG attestation: Yes I reviewed and interpreted this EKG. EKG results narrative: EKG demonstrates atrial fibrillation rate 93 beats or minute. Normal axis. Normal intervals. Normal R-wave progression. T-wave inversions in lead 3. No gross ST elevations or depressions. No acute ischemic findings. S.B.Russell - Val.Vaishnavi Situation: Demographics, MOA Background: Presenting Complaint, Relevant PMH, Meds, & Allergies Assessment: Vital Signs, Course and respsone to treatment, Exam Concerns, Patient/Family Expectation, Pertinant Lab Results Recommendation: Barrier(s) to disposition, Recommendation based on pending studies, treatments, or consults S.B.ADeborah Report Given to: Dr. Ariela Amin Repor Time: 20:05
[2017-10-26 14:28] LABS: Basophils % 0.2 %; Hematocrit 31.4 % (35.3-44.9); Hemoglobin 9.4 g/dL (11.5-15.4); Immature Granulocytes % 1.9 % (0-4); Lymphocytes # 1.4 K/mcL (0.6-4.6); Lymphocytes % 9.1 %; Mean Corpuscular HGB Conc 29.9 g/dL (31.6-35.5); Mean Platelet Volume 8.6 fL (9.4-12.4); Monocytes # 0.7 K/mcL (0.0-1.3); Monocytes % 4.4 %; Neutrophils # 12.8 K/mcL (1.6-8.9); Platelet Count 334 K/mcL (140-400); Red Blood Count 4.08 M/mcL (3.82-4.97); Red Cell Distribution Width 17.3 % (11.5-14.5); Segmented Neutrophils % 84.4 %
[2017-10-26 14:48] LABS: Troponin I 0.03 ng/mL (< 0.04)
[2017-10-26 14:52] LABS: INR 2.2; Prothrombin Time 24.3 Seconds (9.4-12.1)
[2017-10-26 14:55] LABS: Activated Partial Thrombo Time 36.3 Seconds (26.0-36.0)
[2017-10-26 15:13] LABS: BUN/Creatinine Ratio 24 (6-26); Blood Urea Nitrogen 21 mg/dL (8-23); Calcium 8.8 mg/dL (8.6-10.3); Carbon Dioxide 30 mEq/L (23-29); Chloride 94 mEq/L (98-107); Glucose 134 mg/dL (70-105); Osmolality,Calculated 279 (280-300); Potassium 3.9 mEq/L (3.5-5.1); Sodium 132 mEq/L (136-145); eGFR For Non-African Americans > 60 (> 60)
--- NOTE | 2017-10-26 15:20 | Emergency Department Note ---
Disposition Clinical Impression: HCAP (healthcare-associated pneumonia) Volume overload Qualifiers: Hypervolemia type: unspecified Qualified Code(s): E87.70 - Fluid overload, unspecified Disposition: Admitted As Inpatient Condition: Fair General Adult HPI - General Chief complaint: ED Shortness of Breath/Dyspnea Stated complaint: RICHARD Time Seen by Provider: 10/26/17 14:01 Source: patient Mode of arrival: EMS Limitations: no limitations - History of Present Illness Pain Scale: 0 - Related Data Home Medications Medication Instructions Recorded Confirmed Glimepiride [Amaryl] 0.5 mg PO QPM 04/27/15 10/26/17 Glimepiride [Amaryl] 1 mg PO QAM 04/27/15 10/26/17 Lisinopril [Zestril] 20 mg PO BID 04/27/15 10/26/17 Magnesium Oxide [Magnesium] 400 mg PO QPM 04/27/15 10/26/17 Multivitamin/Iron/Folic Acid 1 each PO QAM 04/27/15 10/26/17 [Centrum Complete Multivit Tab] Warfarin [Coumadin] 2 mg PO HS 04/27/15 10/26/17 cloNIDine HCl [CloNIDine HCl] 0.1 mg PO BID 11/26/16 10/26/17 Amlodipine Besylate 5 mg PO DAILY 09/03/17 10/26/17 Aspirin [Lo-Dose Aspirin EC] 81 mg PO DAILY 09/03/17 10/26/17 Cholecalciferol (D-3) [Vitamin D] 5,000 unit PO DAILY 09/03/17 10/26/17 Hydralazine HCl 75 mg PO Q8H 09/03/17 10/26/17 Metoprolol [Lopressor] 25 mg PO BID 09/03/17 10/26/17 Furosemide [Lasix] 40 mg PO DAILY 10/26/17 10/26/17 Levothyroxine [Synthroid] 112 mcg PO DAILY 10/26/17 10/26/17 Allergies Allergy/AdvReac Type Severity Reaction Status Date / Time amlodipine [From [facility]] AdvReac See Verified 10/11/17 10:14 Comments Constitutional: Denies: fever Cardiovascular: Denies: chest pain Respiratory: Reports: cough, dyspnea. Denies: sputum production Gastrointestinal: Denies: abdominal pain, nausea, vomiting Past Medical History - Past Medical History Medical history: Reports: atrial fibrillation, diabetes, GERD, hyperlipidemia, hypertension, thyroid disease Surgical history: Reports: cholecystectomy, knee replacement Psychiatric history: Reports: no psych history LAND MEASURER history: Reports: no LAND MEASURER history - Social History Smoking Status: Never smoker Smokeless Tobacco Status: No Alcohol use: Reports: none Drug use: Reports: none Physical Exam - General Limitations: no limitations General appearance: alert, in no apparent distress Course Vital Signs Pulse Rate 84 10/26/17 14:14 Respiratory Rate 16 10/26/17 14:14 Blood Pressure 188/116 10/26/17 14:14 O2 Sat by Pulse Oximetry 96 10/26/17 14:14 Temperature 98.1 F 10/26/17 14:17 Pulse Rate 88 10/26/17 19:49 Respiratory Rate 20 10/26/17 19:49 Blood Pressure 180/115 10/26/17 19:49 O2 Sat by Pulse Oximetry 96 10/26/17 19:49 Oxygen Delivery Oxygen Delivery Nasal Cannula Medical Decision Making - Lab Data Result diagrams: 10/26/17 14:01 10/26/17 14:01 Lab Results 10/26/17 10/26/17 10/26/17 Range/Units 14:01 14:01 14:01 WBC 15.1 H (4.3-11.1) K/mcL RBC 4.08 (3.82-4.97) M/mcL Hgb 9.4 L (11.5-15.4) g/dL Hct 31.4 L (35.3-44.9) % MCV 77.0 L (83.0-100.0) fL MCH 23.0 L (28.0-33.3) pg MCHC 29.9 L (31.6-35.5) g/dL RDW 17.3 H (11.5-14.5) % Plt Count 334 (140-400) K/mcL MPV 8.6 L (9.4-12.4) fL Immature Gran % 1.9 (0-4) % Seg Neutrophils % 84.4 % Lymphocytes % 9.1 % Monocytes % 4.4 % Eosinophils % 0.0 % Basophils % 0.2 % Neutrophils # 12.8 H (1.6-8.9) K/mcL Lymphocytes # 1.4 (0.6-4.6) K/mcL Monocytes # 0.7 (0.0-1.3) K/mcL Eosinophils # 0.0 (0.0-0.6) K/mcL Basophils # 0.0 (0.0-0.2) K/mcL PT 24.3 H (9.4-12.1) Seconds INR 2.2 APTT 36.3 H (26.0-36.0) Seconds Sodium 132 L (136-145) mEq/L Potassium 3.9 (3.5-5.1) mEq/L Chloride 94 L (98-107) mEq/L Carbon Dioxide 30 H (23-29) mEq/L BUN 21 (8-23) mg/dL Creatinine 0.89 (0.60-1.20) mg/dL Est GFR ( Amer) > 60 (> 60) Est GFR (Non-Af Amer) > 60 (> 60) BUN/Creatinine Ratio 24 (6-26) Glucose 134 H (70-105) mg/dL Calculated Osmolality 279 L (280-300) Calcium 8.8 (8.6-10.3) mg/dL Troponin I 0.03 (< 0.04) ng/mL B-Natriuretic Peptide (Less than 100) pg/mL 10/26/17 Range/Units 14:17 WBC (4.3-11.1) K/mcL RBC (3.82-4.97) M/mcL Hgb (11.5-15.4) g/dL Hct (35.3-44.9) % MCV (83.0-100.0) fL MCH (28.0-33.3) pg MCHC (31.6-35.5) g/dL RDW (11.5-14.5) % Plt Count (140-400) K/mcL MPV (9.4-12.4) fL Immature Gran % (0-4) % Seg Neutrophils % % Lymphocytes % % Monocytes % % Eosinophils % % Basophils % % Neutrophils # (1.6-8.9) K/mcL Lymphocytes # (0.6-4.6) K/mcL Monocytes # (0.0-1.3) K/mcL Eosinophils # (0.0-0.6) K/mcL Basophils # (0.0-0.2) K/mcL PT (9.4-12.1) Seconds INR APTT (26.0-36.0) Seconds Sodium (136-145) mEq/L Potassium (3.5-5.1) mEq/L Chloride (98-107) mEq/L Carbon Dioxide (23-29) mEq/L BUN (8-23) mg/dL Creatinine (0.60-1.20) mg/dL Est GFR ( Amer) (> 60) Est GFR (Non-Af Amer) (> 60) BUN/Creatinine Ratio (6-26) Glucose (70-105) mg/dL Calculated Osmolality (280-300) Calcium (8.6-10.3) mg/dL Troponin I (< 0.04) ng/mL B-Natriuretic Peptide 1013 H (Less than 100) pg/mL Attestation Statement - Attestation Attestation: I have discussed the case with the resident physician Dr. Bush. I have personally performed a history, physical exam, and my own medical decision making. I have reviewed the note and agree with the finding and plan with the following exceptions: Significant wheezing bilaterally with rhonchi to the right lower lobe. Patient with shortness of breath that started yesterday. Progressively worse in nature. Patient with no history of COPD. Does have home oxygen which she can use intermittently. Recent hospital stay for swelling with in her legs. Blood work shows elevated white count and left shift. Chest x-ray shows infiltrate. Patient will receive antibiotics cover healthcare associated pneumonia. Patient is stable at this time. Patient did receive a DuoNeb which improved her overall symptoms. Further breathing treatments ordered. Please see resident note for further dispositions and details.
[2017-10-26] MEDS ORDERED: Azithromycin 500 MG in D5% in Water 250 ML IVPB ONE (16:01)
[2017-10-26] MEDS ORDERED: Piperacillin/Tazobactam 3.375 GM in Water for inj. (sterile) 20 ML 20 ML IVP ONE ×2 (16:01→23:00)
[2017-10-26] MEDS ORDERED: Furosemide 40 MG/4 ML VIAL IVP ONE (16:02)
[2017-10-26] MEDS ORDERED: Naloxone 0.4 MG/ML INJ IVP PRN (21:33)
[2017-10-26] MEDS ORDERED: Dextrose Gel 15 GM/37.5 ML TUBE PO PRN ×2 (21:33)
[2017-10-26] MEDS ORDERED: *HR* Dextrose 50 % in Water (Syg) 50 ML SYRINGE IVP PRN (21:33)
[2017-10-26] MEDS ORDERED: D5% in Water 1,000 ML IVC PRN (21:33)
[2017-10-26] MEDS ORDERED: Albuterol 2.5 MG/3 ML NEBULIZER IH PRN (21:33)
[2017-10-26] MEDS ORDERED: Acetaminophen 325 MG TABLET PO PRN (21:33)
--- NOTE | 2017-10-26 22:57 | Internal Med History&Physical ---
Date of Encounter: 10/26/17 Time of Encounter: 20:00 Internal Medicine - H&P: HPI Chief complaint: SOB; cough; edema Admitted From: Emergency Dept Plans for Post Hospital Care: Home History of present illness: Ms. Mcdermott is a 82 year old female who presents to the ER with complaints of cough, congestion, shortness of breath, and edema. She has had subjective fevers and shortness of breath with harsh cough for the last 7 days. She has been unable to produce sputum productively. She has no chest pain. She has had increasing LE edema. Because of the symptoms she came to the ER for evaluation. In the ER, she was noted to have findings consistent with CHF and likely pneumonia as well. She did receive some Lasix in the ER with some improvement in her edema. However, the cough and shortness of breath persist. She is on Coumadin for atrial fibrillation. However, she did have recent knee surgery and there was concern for pulmonary embolus. Therefore, CT angiogram was performed which was negative for PE. However, there were findings concerning for likely pneumonia. She also had Dopplers of her legs which suspicious for subacute versus chronic DVTs. Official report is pending, however. She was subsequently admitted to hospitalist service. Upon my assessment of the patient in ER, she is coughing vigorously, moderately dyspneic, and mildly tachypneic. She feels better with oxygen and diuresis. She and her son confirmed above history. She has had no chest pain, vomiting, or diarrhea. I reviewed her most recent echo which confirms normal LV function , but she does have diastolic dysfunction and moderate to severe pulmonary hypertension as well. Of note, patient was hospitalized recently in later September and had her knee surgery in mid August. Past Med Surg Social Fam HX - Past Medical History Medical history: atrial fibrillation, CHF (diastolic), diabetes, GERD, hyperlipidemia, hypertension, thyroid disease Additional medical history: Severe Pulmonary HTN Psychiatric history: no psych history - Past Surgical History Surgical History: cholecystectomy, knee replacement Additional surgical history: RTKR 09/03/17 PER - Social History Smoking Status: Never smoker Smokeless Tobacco Status: No Alcohol use: none Drug use: none Current living situation: Home, With Family Activity Level: Uses cane/walker Recent Out of Country Travel Within the Last 8 Weeks: No - Family History Mother Living Status: Hx Family Cardiac Disorders: Yes (htn) Hx Family Neurologic Disorders: Yes (stroke) Father Living Status: Internal Medicine - H&P: Meds Glimepiride [Amaryl] 0.5 mg PO QPM 04/27/15 [History] Glimepiride [Amaryl] 1 mg PO QAM 04/27/15 [History] Lisinopril [Zestril] 20 mg PO BID 04/27/15 [History] Magnesium Oxide [Magnesium] 400 mg PO QPM 04/27/15 [History] Multivitamin/Iron/Folic Acid [Centrum Complete Multivit Tab] 1 each PO QAM 04/26 [History] Warfarin [Coumadin] 2 mg PO HS 04/27/15 [History] cloNIDine HCl [CloNIDine HCl] 0.1 mg PO BID 11/26/16 [History] Amlodipine Besylate 5 mg PO DAILY 09/03/17 [History] Aspirin [Lo-Dose Aspirin EC] 81 mg PO DAILY 09/03/17 [History] Cholecalciferol (D-3) [Vitamin D] 5,000 unit PO DAILY 09/03/17 [History] Hydralazine HCl 75 mg PO Q8H 09/03/17 [History] Metoprolol [Lopressor] 25 mg PO BID 09/03/17 [History] Furosemide [Lasix] 40 mg PO DAILY 10/26/17 [History] Levothyroxine [Synthroid] 112 mcg PO DAILY 10/26/17 [History] 3 Allergy/AdvReac Type Severity Reaction Status Date / Time amlodipine [From [facility]] AdvReac See Verified 10/11/17 10:14 Comments - Constitutional Constitutional: fever(s), no chills, no night sweats - EENT Eyes: no blurry vision, no change in vision Ears: no ear pain, no tinnitus Nose, mouth and throat: nasal congestion, no sore throat - Cardiovascular Cardiovascular ROS IM: dyspnea, dyspnea on exertion, edema, orthopnea, paroxysmal nocturnal dyspnea, no chest pain - Respiratory Respiratory: cough, dyspnea, chest congestion, no hemoptysis, no pain on inspiration, no excessive phlegm production, no change in phlegm color, no pain with cough - Gastrointestinal Gastrointestinal: no abdominal pain, no diarrhea, no hematemesis, no hematochezia, no melena, no nausea, no vomiting - Genitourinary Genitourinary: no dysuria, no flank pain, no hematuria - Musculoskeletal Musculoskeletal ROS IM: arthralgias, no back pain, no joint swelling - Integumentary Integumentary IM: no rash, no jaundice - Neurological Neurological ROS: no dizziness, no focal weakness, no frequent falls, no headache(s) - Psychiatric Psychiatric: no anxiety, no depression - Endocrine Endocrine IM: no polydipsia, no polyuria - Hematologic/Lymphatic Hematologic/Lymphatic: easy bruising - Allergic/Immunologic Allergic/Immunologic: no GI upset with certain foods - Constitutional Vitals: Temp Pulse Resp BP Pulse Ox 98.1 F 88 20 180/115 96 10/26/17 14:17 10/26/17 19:49 10/26/17 19:49 10/26/17 19:49 10/26/17 19:49 General appearance: Present: cooperative, mild distress, A&O X 3, pleasant, answers questions appropriately Exam: mild to moderate respiratory distress - Head Head exam: Present: normal inspection - Eye Eye exam: Present: EOMI, PERRL. Absent: scleral icterus Pupils: Present: normal accommodation - ENT ENT exam: Present: mucous membranes dry, normal exam, normal oropharynx - Neck Neck exam general surgery: Present: full ROM, supple. Absent: tenderness, nuchal rigidity, thyromegaly - Respiratory Respiratory exam: Present: accessory muscle use, rales (both bases about half way up), respiratory distress, wheezes, tachypnea. Absent: chest wall tenderness - Cardiovascular Cardiovascular exam: Present: distant heart sounds, irregular rhythm, +S1, +S2. Absent: diastolic murmur, systolic murmur - GI/Abdominal GI/Abdominal exam: Present: normal bowel sounds, soft. Absent: guarding, hepatomegaly, rebound, splenomegaly, tenderness - Extremities Exam Extremities exam: Present: normal capillary refill, pedal edema (2-3+), warm, radial pulses palpable and symmetrical. Absent: calf tenderness, tenderness - Back Exam Back exam: Absent: CVA tenderness (L), CVA tenderness (R) - Neurological Exam Neurological exam: Present: alert, CN II-XII intact, oriented X3, no focal deficits - Psychiatric Psychiatric exam: Present: normal affect, normal mood - Skin Skin exam: Present: dry, intact, warm Internal Med - H&P Results - Labs CBC & Chem 7: 10/26/17 14:01 10/26/17 14:01 - EKG Data -: EKG Interpreted by Myself - EKG Data Prior EKG available for review: no EKG comments: 10/26/17 23:19 atrial fibrillation - Diagnostic Studies Chest x-ray Status: image reviewed by me (RLL infiltrate and effusion; vascular congestion) - Assessment and plan (1) Acute respiratory failure with hypoxia Current Visit: Yes Status: Acute Assessment and plan: 1. Likely due to HCAP and acute diastolic CHF. 2. Will treat both and support with oxygen, aerosols, and BiPap if necessary. 3. Wean oxygen as clinical status improves. 4. Patient does have history of pulmonary hypertension and may need chronic home oxygen. (2) HCAP (healthcare-associated pneumonia) Current Visit: Yes Status: Acute Assessment and plan: 1. Patient has been hospitalized twice since mid-August. 2. She has evidence of pneumonia clinically and on imaging. 3. Will treat with IV Vancomycin, Zosyn, and Levaquin. 4. Follow cultures and obtain sputum culture if able to collect. (3) Acute on chronic diastolic (congestive) heart failure Current Visit: Yes Status: Acute Assessment and plan: 1. Will place on fluid restriction and diurese with Lasix. 2. Convert to oral Lasix when clinically improved. 3. Respiratory support as above. (4) Atrial fibrillation Current Visit: Yes Status: Chronic Assessment and plan: 1. Continue home meds as appropriate. 2. Rate controlled. 3. On Coumadin for stroke prophylaxis. Qualifiers: Atrial fibrillation type: chronic Qualified Code(s): I48.2 - Chronic atrial fibrillation (5) DVT prophylaxis Current Visit: Yes Status: Acute Assessment and plan: 1. Therapeutic on Coumadin; pharmacy to dose. 2. Need to confirm Doppler results as noted in ER -- subacute vs chronic DVT.
[2017-10-26] MEDS ORDERED: *HR* Warfarin 2 MG TABLET PO ONE (23:00)
[2017-10-27] MEDS: hydrALAZINE 25 MG TABLET PO SCH ×4 (00:39→22:00)
[2017-10-27 05:10] LABS: Basophils # 0.1 K/mcL (0.0-0.2); Basophils % 0.3 %; Eosinophils % 0.1 %; Hematocrit 31.6 % (35.3-44.9); Hemoglobin 9.4 g/dL (11.5-15.4); Immature Granulocytes % 1.6 % (0-4); Lymphocytes # 1.1 K/mcL (0.6-4.6); Mean Corpuscular HGB Conc 29.7 g/dL (31.6-35.5); Mean Corpuscular Hemoglobin 22.7 pg (28.0-33.3); Mean Corpuscular Volume 76.3 fL (83.0-100.0); Mean Platelet Volume 8.8 fL (9.4-12.4); Monocytes # 1.3 K/mcL (0.0-1.3); Monocytes % 8.1 %; Neutrophils # 13.3 K/mcL (1.6-8.9); Nucleated Red Blood Cells 0.2 /100 WBC (0); Platelet Count 326 K/mcL (140-400); Red Blood Count 4.14 M/mcL (3.82-4.97); Red Cell Distribution Width 17.4 % (11.5-14.5); Segmented Neutrophils % 82.9 %
[2017-10-27] MEDS ORDERED: Furosemide 20 MG/2 ML VIAL IVP ONE (05:10)
[2017-10-27] MEDS ORDERED: Furosemide 40 MG/4 ML VIAL ONE (05:14)
[2017-10-27 05:15] LABS: INR 2.2
[2017-10-27] MEDS ORDERED: *HR* Metoprolol 5 MG/5 ML VIAL IVP ONE (05:15)
[2017-10-27] MEDS: Furosemide 40 MG/4 ML VIAL IVP SCH ×3 (05:15→16:45)
[2017-10-27 05:21] LABS: Alanine Aminotransferase 19 Units/L (7-52); Albumin 3.2 g/dL (3.5-5.7); Albumin/Globulin Ratio 0.8 (1.1-2.2); Alkaline Phosphatase 100 Units/L (34-104); Aspartate Amino Transferase 22 Units/L (13-39); BUN/Creatinine Ratio 24 (6-26); Bilirubin,Total 0.9 mg/dL (0.3-1.0); Blood Urea Nitrogen 22 mg/dL (8-23); Calcium 8.8 mg/dL (8.6-10.3); Carbon Dioxide 30 mEq/L (23-29); Chloride 94 mEq/L (98-107); Globulin 3.9 g/dL (2.4-3.5); Glucose 103 mg/dL (70-105); Magnesium 1.8 mg/dL (1.6-2.6); Osmolality,Calculated 280 (280-300); Potassium 3.5 mEq/L (3.5-5.1); Sodium 133 mEq/L (136-145); Total Protein 7.1 g/dL (6.4-8.9); eGFR For Non-African Americans 59 (> 60)
[2017-10-27] MEDS ORDERED: Nitroglycerin 1 INCH/GM PACKET TP ONE (05:30)
[2017-10-27 05:32] LABS: ABG Base Excess 6 mEq/L (-2 to 3); ABG HCO3 33 mEq/L (21-27); ABG Oxygen Saturation 97 % (95-98); ABG PCO2 55 mmHg (35-45); ABG PH 7.38 pH Units (7.32-7.45); ABG PO2 91 mmHg (85-104); ABG TCO2 34 mEq/L (20-26)
[2017-10-27] MEDS ORDERED: Furosemide 40 MG/4 ML VIAL IVP SCH (08:00)
--- NOTE | 2017-10-27 08:28 | Internal Med Progress Note ---
Hospitalist Progress Note - Encounter Date of Encounter: 10/27/17 Time of Encounter: 08:30 - Subjective Interval History: cont resp distress, overall improving. She can converse throughout eam. + sob, + wheezing, + cough with yellow sputum, dneies fevers, chills, cp, pressure or palpitations. - Exam Vitals: Temp Pulse Resp BP Pulse Ox 97.5 F L 90 20 175/88 93 10/27/17 07:48 10/27/17 07:48 10/27/17 07:48 10/27/17 07:48 10/27/17 07:48 Exam: General: awake, alert, appears stated age, mild resp distress HEENT:EOM intact, pupils equal, round, moist mucus membranes, clear oropharynx Neck: supple, trachea midline Cardiovascular:regular rate and rhythm, normal S1 & S2, no rubs, murmurs or gallops. + JVD. radial pulses 2+ and regular, 2+ pitting edema to the bl knees Lungs:rhonchi throughout, diminished bases, + exp wheeze , mild increase in resp rate on 5L mask, able to converse Abdomen:Soft, non-tender, non-distended, + bowel sounds Neurological: AAOx3, CN grossly intact Skin:Normal color, no rash, no pallor, - Assessment and Plan (1) Acute respiratory failure with hypoxia Current Visit: Yes Status: Acute Assessment and Plan: 2/2 HCAP and acute diastolic CHF Will treat both and support with oxygen, aerosols, and BiPap if necessary. Wean oxygen as clinical status improves. Patient does have history of pulmonary hypertension and may need chronic home oxygen. see pna and chf treatment below (2) HCAP (healthcare-associated pneumonia) Current Visit: Yes Status: Acute Assessment and Plan: Patient has been hospitalized twice since mid-August. She has evidence of pneumonia clinically and on imaging. Will treat with IV Vancomycin, Zosyn, and Levaquin. -bl cxs pending -sputum cx, legionella and strep ag pending -change nebs to ipratropium given afib -IV steroids (3) Acute on chronic diastolic (congestive) heart failure Current Visit: Yes Status: Acute Assessment and Plan: -i/os, weights, tele -IV Lasix BID - cont asa, acei, bb, NOT on statin at home -check echo -fluid restriction (4) Atrial fibrillation Current Visit: Yes Status: Chronic Assessment and Plan: In and out of Afib, currently NSR, has been rate controlled -on coumadin, pharm to dose -cont asa, BB -Loppressor dose increased for improved Bp control--25mg bid to 37.5 mg bid -tele -monitor lytes (5) DVT prophylaxis Current Visit: Yes Status: Acute Assessment and Plan: Therapeutic on Coumadin; pharmacy to dose. - Time Spent with Patient Total time spent is greater than 50% in coordination of care (as documented) at patient's floor/unit and/or counseling patient: 25 - 35 minutes Plan of Care Discussed with: patient Internal Medicine: Result - Labs CBC & Chem 7: 10/27/17 04:29 10/27/17 04:29 Labs: Short CBC 10/27/17 Range/Units 04:29 WBC 16.0 H (4.3-11.1) K/mcL Hgb 9.4 L (11.5-15.4) g/dL Hct 31.6 L (35.3-44.9) % Plt Count 326 (140-400) K/mcL Neutrophils # 13.3 H (1.6-8.9) K/mcL BMP 10/27/17 04:29 Sodium 133 L Potassium 3.5 Chloride 94 L Carbon Dioxide 30 H BUN 22 Creatinine 0.91 Glucose 103 Calcium 8.8 Liver Function 10/27/17 Range/Units 04:29 Total Bilirubin 0.9 (0.3-1.0) mg/dL AST 22 (13-39) Units/L ALT 19 (7-52) Units/L Alkaline Phosphatase 100 (34-104) Units/L Albumin 3.2 L (3.5-5.7) g/dL - ABG Interpretation ABG results: ABG ABG pH 7.38 pH Units (7.32-7.45) 10/27/17 05:28 ABG pCO2 55 mmHg (35-45) H 10/27/17 05:28 ABG pO2 91 mmHg (85-104) 10/27/17 05:28 ABG O2 Saturation 97 % (95-98) 10/27/17 05:28 PT/INR, D-dimer PT 25.0 Seconds (9.4-12.1) H 10/27/17 04:29 Consult Discharge Plan - Plan Referrals: Vidhya Bland DO [Primary Care Provider] - (4) Atrial fibrillation Qualifiers: Atrial fibrillation type: chronic Qualified Code(s): I48.2 - Chronic atrial fibrillation
[2017-10-27] MEDS: Insulin LISPRO 300 UNITS/3 ML VIAL SQ SCH ×3 (08:37→17:34)
[2017-10-27] MEDS: Levofloxacin 500 MG/100 ML 500 MG/100 ML BAG IVPB SCH (08:47)
[2017-10-27] MEDS: Multivit/Ca/Min/Fe/FA 1 TAB TABLET PO SCH (08:48)
[2017-10-27] MEDS: Piperacillin/Tazobactam 3.375 GM in 0.9 % Sodium Chloride Mini Bag 100 ML IVPB SCH ×2 (08:48→16:46)
[2017-10-27] MEDS: Lisinopril 20 MG TABLET PO SCH ×2 (08:48→22:00)
[2017-10-27] MEDS: cloNIDine HCl 0.1 MG TABLET PO SCH ×2 (08:48→22:00)
[2017-10-27] MEDS: Aspirin Enteric Coated 81 MG Tablet PO SCH (08:49)
[2017-10-27] MEDS ORDERED: amLODIPine 5 MG TABLET PO SCH (09:00)
[2017-10-27] MEDS ORDERED: Ipratropium Neb 0.5 MG NEBULIZER IH PRN (14:45)
[2017-10-27] MEDS: Ipratropium Neb 0.5 MG NEBULIZER IH SCH ×2 (15:31→21:45)
[2017-10-27] MEDS: MethylPREDNISolone 40 MG/ML VIAL IVP SCH (16:45)
[2017-10-27] MEDS: Magnesium Oxide 400 MG TABLET PO SCH (17:33)
[2017-10-27] MEDS ORDERED: Warfarin perPT PO PRN (18:00)
[2017-10-27] MEDS ORDERED: *HR* Warfarin 1 MG TABLET PO ONE (18:00)
[2017-10-28] MEDS: Piperacillin/Tazobactam 3.375 GM in 0.9 % Sodium Chloride Mini Bag 100 ML IVPB SCH ×3 (00:07→15:19)
[2017-10-28] MEDS: MethylPREDNISolone 40 MG/ML VIAL IVP SCH ×3 (00:08→15:18)
[2017-10-28 01:51] LABS: Basophils % 0.2 %; Hematocrit 33.1 % (35.3-44.9); Immature Granulocytes % 1.5 % (0-4); Lymphocytes # 0.9 K/mcL (0.6-4.6); Lymphocytes % 7.9 %; Mean Corpuscular HGB Conc 30.2 g/dL (31.6-35.5); Mean Corpuscular Hemoglobin 23.2 pg (28.0-33.3); Mean Corpuscular Volume 76.8 fL (83.0-100.0); Mean Platelet Volume 8.5 fL (9.4-12.4); Monocytes # 0.4 K/mcL (0.0-1.3); Monocytes % 3.1 %; Neutrophils # 10.2 K/mcL (1.6-8.9); Nucleated Red Blood Cells 0.2 /100 WBC (0); Platelet Count 350 K/mcL (140-400); Red Blood Count 4.31 M/mcL (3.82-4.97); Red Cell Distribution Width 17.3 % (11.5-14.5); Segmented Neutrophils % 87.3 %
[2017-10-28 02:03] LABS: BUN/Creatinine Ratio 27 (6-26); Blood Urea Nitrogen 25 mg/dL (8-23); Calcium 8.8 mg/dL (8.6-10.3); Carbon Dioxide 32 mEq/L (23-29); Chloride 92 mEq/L (98-107); Glucose 122 mg/dL (70-105); Magnesium 1.9 mg/dL (1.6-2.6); Osmolality,Calculated 286 (280-300); Potassium 3.6 mEq/L (3.5-5.1); Sodium 135 mEq/L (136-145); eGFR For Non-African Americans 59 (> 60)
[2017-10-28 02:11] LABS: INR 2.4
[2017-10-28] MEDS: Ipratropium Neb 0.5 MG NEBULIZER IH SCH ×4 (03:55→22:05)
[2017-10-28] MEDS: hydrALAZINE 25 MG TABLET PO SCH ×3 (05:28→21:36)
--- NOTE | 2017-10-28 07:54 | Internal Med Progress Note ---
Hospitalist Progress Note - Encounter Date of Encounter: 10/28/17 Time of Encounter: 09:45 - Subjective Interval History: awake in bed. on o2 nc. no resp distress. sob is improving at rest. + cough, + orhtopnea, denies wheezing, fevers, chills, cp,palpitations. Less labored breathing today - Exam Vitals: Temp Pulse Resp BP Pulse Ox 97.8 F 90 18 178/104 98 10/28/17 06:48 10/28/17 06:48 10/28/17 06:48 10/28/17 06:48 10/28/17 06:48 Exam: General: awake, alert, appears stated age Neck: supple, trachea midline Cardiovascular:regular rate and rhythm, normal S1 & S2, no rubs, murmurs or gallops. + JVD. radial pulses 2+ and regular, 1+ pitting edema to the bl knees Lungs:rhonchi throughout posterior lung nava, diminished bases, no wheezing, no crackles , normal resp effort on O2 NC Abdomen:Soft, non-tender, non-distended, + bowel sounds Neurological: AAOx3 Skin:Normal color, no rash, no pallor, - Assessment and Plan (1) Acute respiratory failure with hypoxia Current Visit: Yes Status: Acute Assessment and Plan: 2/2 HCAP and acute diastolic CHF Will treat both and support with oxygen, aerosols, and BiPap if necessary. Wean oxygen as clinical status improves. Patient does have history of pulmonary hypertension and may need chronic home oxygen. see pna and chf treatment below (2) HCAP (healthcare-associated pneumonia) Current Visit: Yes Status: Acute Assessment and Plan: Patient has been hospitalized twice since mid-August. She has evidence of pneumonia clinically and on imaging. RLL Will treat with IV Vancomycin, Zosyn, and Levaquin. -bl cxs pending -sputum cx pending - legionella and strep ag pending -changed nebs to ipratropium given afib -IV steroids -9 AM CXR with significant improvement in RLL infiltrate -speech eval to rule out aspiration (3) Acute on chronic diastolic (congestive) heart failure Current Visit: Yes Status: Acute Assessment and Plan: -i/os, weights, tele -IV Lasix BID - cont asa, acei, bb, NOT on statin at home -check echo, pending -fluid restriction -NET BALANCE: -1.1 L -cont with current diuresis with electrolyte and creat monitoring (4) Atrial fibrillation Current Visit: Yes Status: Chronic Assessment and Plan: In and out of Afib, currently rate controlled Afib -on coumadin, pharm to dose -cont asa, BB -Loppressor dose increased for improved Bp control--25mg bid to 50 mg bid -tele -monitor lytes (5) DVT prophylaxis Current Visit: Yes Status: Acute Assessment and Plan: Therapeutic on Coumadin; pharmacy to dose. (6) HTN (hypertension), benign Current Visit: No Status: Acute Assessment and Plan: Uncontrolled HTN this admission, BP above goal -cont clonidine, lopressor, lisinopril, hydralazine (allergy to norvasc) -cont diuresis -10/27 increased BB -10/28 increased clonidine to TID and increase BB further - Time Spent with Patient Total time spent is greater than 50% in coordination of care (as documented) at patient's floor/unit and/or counseling patient: 25 - 35 minutes Plan of Care Discussed with: patient Internal Medicine: Result - Labs CBC & Chem 7: 10/28/17 01:00 10/28/17 01:00 Labs: Short CBC 10/28/17 Range/Units 01:00 WBC 11.7 H (4.3-11.1) K/mcL Hgb 10.0 L (11.5-15.4) g/dL Hct 33.1 L (35.3-44.9) % Plt Count 350 (140-400) K/mcL Neutrophils # 10.2 H (1.6-8.9) K/mcL BMP 10/28/17 01:00 Sodium 135 L Potassium 3.6 Chloride 92 L Carbon Dioxide 32 H BUN 25 H Creatinine 0.91 Glucose 122 H Calcium 8.8 - ABG Interpretation ABG results: ABG ABG pH 7.38 pH Units (7.32-7.45) 10/27/17 05:28 ABG pCO2 55 mmHg (35-45) H 10/27/17 05:28 ABG pO2 91 mmHg (85-104) 10/27/17 05:28 ABG O2 Saturation 97 % (95-98) 10/27/17 05:28 PT/INR, D-dimer PT 27.0 Seconds (9.4-12.1) H 10/28/17 01:00 - Impressions Impressions Chest X-Ray 10/28/17 06:00 IMPRESSION: Compared to 10/26/2017, there has been significant improvement of right-sided infiltrate. Continued follow-up recommended. D/ / 10/28/2017 07:12:22 Santiago Rubio MD / Alina Leavitt Interpreting Provider: Santiago Rubio MD Consult Discharge Plan - Plan Referrals: Vidhya Bland DO [Primary Care Provider] - (4) Atrial fibrillation Qualifiers: Atrial fibrillation type: chronic Qualified Code(s): I48.2 - Chronic atrial fibrillation
[2017-10-28] MEDS ORDERED: Magnesium Oxide 400 MG TABLET PO ONE (07:55)
[2017-10-28] MEDS: Insulin LISPRO 300 UNITS/3 ML VIAL SQ SCH ×3 (08:07→18:17)
[2017-10-28] MEDS: Aspirin Enteric Coated 81 MG Tablet PO SCH (08:38)
[2017-10-28] MEDS: Lisinopril 20 MG TABLET PO SCH ×2 (08:38→21:36)
[2017-10-28] MEDS: Furosemide 40 MG/4 ML VIAL IVP SCH ×2 (08:38→18:32)
[2017-10-28] MEDS: Multivit/Ca/Min/Fe/FA 1 TAB TABLET PO SCH (08:38)
[2017-10-28] MEDS: cloNIDine HCl 0.1 MG TABLET PO SCH ×3 (08:38→21:36)
[2017-10-28] MEDS: Levofloxacin 500 MG/100 ML 500 MG/100 ML BAG IVPB SCH (08:39)
[2017-10-28] MEDS ORDERED: *HR* Warfarin 3 MG TABLET PO ONE (18:00)
[2017-10-28] MEDS: Magnesium Oxide 400 MG TABLET PO SCH (18:32)
[2017-10-29] MEDS: MethylPREDNISolone 40 MG/ML VIAL IVP SCH ×3 (00:16→17:36)
[2017-10-29] MEDS: Piperacillin/Tazobactam 3.375 GM in 0.9 % Sodium Chloride Mini Bag 100 ML IVPB SCH ×3 (00:16→15:39)
[2017-10-29 01:23] LABS: Prothrombin Time 33.9 Seconds (9.4-12.1)
[2017-10-29 01:39] LABS: Calcium 8.6 mg/dL (8.6-10.3); Magnesium 2.1 mg/dL (1.6-2.6); Potassium 3.8 mEq/L (3.5-5.1)
[2017-10-29] MEDS: Ipratropium Neb 0.5 MG NEBULIZER IH SCH ×4 (04:31→22:27)
[2017-10-29] MEDS ORDERED: Nystatin POWDER 30 GM BOTTLE TP PRN (05:51)
[2017-10-29] MEDS: hydrALAZINE 25 MG TABLET PO SCH ×3 (05:57→20:49)
[2017-10-29] MEDS: Multivit/Ca/Min/Fe/FA 1 TAB TABLET PO SCH (08:20)
[2017-10-29] MEDS: Lisinopril 20 MG TABLET PO SCH ×2 (08:20→20:49)
[2017-10-29] MEDS: cloNIDine HCl 0.1 MG TABLET PO SCH ×3 (08:20→20:49)
[2017-10-29] MEDS: Aspirin Enteric Coated 81 MG Tablet PO SCH (08:20)
[2017-10-29] MEDS: Levofloxacin 500 MG/100 ML 500 MG/100 ML BAG IVPB SCH (08:21)
[2017-10-29] MEDS: Insulin LISPRO 300 UNITS/3 ML VIAL SQ SCH ×3 (08:21→17:36)
--- NOTE | 2017-10-29 08:37 | Internal Med Progress Note ---
Hospitalist Progress Note - Encounter Date of Encounter: 10/29/17 Time of Encounter: 10:20 - Subjective Interval History: breathing cont to become less labored, able to take bigger breaths, cough is decreased, + sputum, denies wheezing, fevers or chills. - Exam Vitals: Temp Pulse Resp BP Pulse Ox 97.9 F 80 20 174/67 99 10/29/17 07:40 10/29/17 07:40 10/29/17 07:40 10/29/17 07:40 10/29/17 07:40 Exam: General: awake, alert, appears stated age Neck: supple, trachea midline Cardiovascular:regular rate and irreg/irreg rhythm, normal S1 & S2, no rubs, murmurs or gallops. no JVD. 1+ pitting edema to the bl knees Lungs:rhonchi throughout posterior lung nava, diminished bases, no wheezing, no crackles , normal resp effort on O2 NC Abdomen:Soft, non-tender, non-distended, + bowel sounds Neurological: AAOx3 Skin:Normal color, no rash, no pallor, - Assessment and Plan (1) Acute respiratory failure with hypoxia Current Visit: Yes Status: Acute Assessment and Plan: 2/2 HCAP and acute diastolic CHF Will treat both and support with oxygen, aerosols, and BiPap if necessary. Wean oxygen as clinical status improves. Patient does have history of pulmonary hypertension and may need chronic home oxygen. see pna and chf treatment below (2) HCAP (healthcare-associated pneumonia) Current Visit: Yes Status: Acute Assessment and Plan: Patient has been hospitalized twice since mid-August. She has evidence of pneumonia clinically and on imaging. RLL Will treat with IV Vancomycin, Zosyn, and Levaquin. -bl cxs ngtd -sputum cx gpc - legionella and strep ag pending -changed nebs to ipratropium given afib -IV steroids -10/28 AM CXR with significant improvement in RLL infiltrate -speech eval to rule out aspiration (3) Acute on chronic diastolic (congestive) heart failure Current Visit: Yes Status: Acute Assessment and Plan: -i/os, weights, tele -IV Lasix BID - cont asa, acei, bb, NOT on statin at home -check echo, pending -fluid restriction -NET BALANCE: -1.3 L -cont with current diuresis with electrolyte and creat monitoring- 10/29 decrease lasix iv to daily (4) Atrial fibrillation Current Visit: Yes Status: Chronic Assessment and Plan: In and out of Afib, currently rate controlled Afib -on coumadin, pharm to dose -cont asa, BB -Loppressor dose increased for improved Bp control--25mg bid to 50 mg bid -tele -monitor lytes (5) DVT prophylaxis Current Visit: Yes Status: Acute Assessment and Plan: Therapeutic on Coumadin; pharmacy to dose. (6) HTN (hypertension), benign Current Visit: No Status: Acute Assessment and Plan: Uncontrolled HTN this admission, BP above goal -cont clonidine, lopressor, lisinopril, hydralazine (allergy to norvasc) -cont diuresis -10/27 increased BB -10/28 increased clonidine to TID and increase BB further -prn hydralazine -cont to up titrate meds as needed - Time Spent with Patient Total time spent is greater than 50% in coordination of care (as documented) at patient's floor/unit and/or counseling patient: 25 - 35 minutes Plan of Care Discussed with: patient Internal Medicine: Result - Labs CBC & Chem 7: 10/28/17 01:00 10/29/17 00:42 Labs: BMP 10/29/17 00:42 Sodium 133 L Potassium 3.8 Chloride 93 L Carbon Dioxide 35 H BUN 30 H Creatinine 1.08 Glucose 147 H Calcium 8.6 - ABG Interpretation ABG results: ABG ABG pH 7.38 pH Units (7.32-7.45) 10/27/17 05:28 ABG pCO2 55 mmHg (35-45) H 10/27/17 05:28 ABG pO2 91 mmHg (85-104) 10/27/17 05:28 ABG O2 Saturation 97 % (95-98) 10/27/17 05:28 PT/INR, D-dimer PT 33.9 Seconds (9.4-12.1) H 10/29/17 00:42 Consult Discharge Plan - Plan Referrals: Vidhya Bland DO [Primary Care Provider] - (4) Atrial fibrillation Qualifiers: Atrial fibrillation type: chronic Qualified Code(s): I48.2 - Chronic atrial fibrillation
[2017-10-29] MEDS: Furosemide 40 MG/4 ML VIAL IVP SCH (12:13)
--- NOTE | 2017-10-29 16:57 | Electrocardiograph Report ---
[place] [id number] Test Date: 2017-10-26 Pat Name: Ruth Mcdermott Department: EXAM6 Room: 3A Gender: F Panelboard Operator: : [id number] Requested By: [place] Order Number: [id number] Reading MD: Seng Eastman Measurements Intervals [place] Rate: 93 P: [place]: QRS: 91 QRSD: 97 T: -27 QT: 359 QTc: 447 Interpretive Statements Atrial fibrillation Borderline T abnormalities, inferior leads Electronically Signed On 10-29-2017 16:56:04 EDT by Seng Eastman
[2017-10-29] MEDS: Magnesium Oxide 400 MG TABLET PO SCH (17:36)
[2017-10-29] MEDS ORDERED: *HR* Warfarin 1 MG TABLET PO ONE (18:00)
[2017-10-30] MEDS: Piperacillin/Tazobactam 3.375 GM in 0.9 % Sodium Chloride Mini Bag 100 ML IVPB SCH ×4 (00:26→23:56)
[2017-10-30] MEDS: Ipratropium Neb 0.5 MG NEBULIZER IH SCH ×4 (04:02→21:58)
[2017-10-30 06:04] LABS: Basophils % 0.1 %; Hematocrit 34.7 % (35.3-44.9); Hemoglobin 10.4 g/dL (11.5-15.4); Immature Granulocytes % 1.9 % (0-4); Lymphocytes # 1.3 K/mcL (0.6-4.6); Lymphocytes % 10.1 %; Mean Corpuscular Hemoglobin 23.2 pg (28.0-33.3); Mean Corpuscular Volume 77.5 fL (83.0-100.0); Mean Platelet Volume 8.4 fL (9.4-12.4); Monocytes # 1.3 K/mcL (0.0-1.3); Monocytes % 10.1 %; Neutrophils # 9.9 K/mcL (1.6-8.9); Platelet Count 317 K/mcL (140-400); Red Blood Count 4.48 M/mcL (3.82-4.97); Red Cell Distribution Width 17.6 % (11.5-14.5); Segmented Neutrophils % 77.8 %
[2017-10-30 06:09] LABS: INR 2.7; Prothrombin Time 30.4 Seconds (9.4-12.1)
[2017-10-30] MEDS: hydrALAZINE 25 MG TABLET PO SCH ×3 (06:09→21:47)
[2017-10-30] MEDS: MethylPREDNISolone 40 MG/ML VIAL IVP SCH (06:09)
[2017-10-30 06:23] LABS: BUN/Creatinine Ratio 33 (6-26); Blood Urea Nitrogen 34 mg/dL (8-23); Calcium 8.6 mg/dL (8.6-10.3); Carbon Dioxide 33 mEq/L (23-29); Chloride 94 mEq/L (98-107); Glucose 130 mg/dL (70-105); Magnesium 2.2 mg/dL (1.6-2.6); Osmolality,Calculated 289 (280-300); Potassium 3.3 mEq/L (3.5-5.1); Sodium 135 mEq/L (136-145); eGFR For Non-African Americans 52 (> 60)
[2017-10-30] MEDS: Furosemide 40 MG/4 ML VIAL IVP SCH (08:06)
[2017-10-30] MEDS: cloNIDine HCl 0.1 MG TABLET PO SCH ×3 (08:06→21:47)
[2017-10-30] MEDS: Multivit/Ca/Min/Fe/FA 1 TAB TABLET PO SCH (08:06)
[2017-10-30] MEDS: Aspirin Enteric Coated 81 MG Tablet PO SCH (08:06)
[2017-10-30] MEDS: Lisinopril 20 MG TABLET PO SCH ×2 (08:06→21:47)
[2017-10-30] MEDS: Insulin LISPRO 300 UNITS/3 ML VIAL SQ SCH ×3 (08:17→16:19)
[2017-10-30] MEDS ORDERED: Potassium Chloride Elixir 20 MEQ/15 ML UDC PO ONE (08:32)
--- NOTE | 2017-10-30 13:37 | Internal Med Progress Note ---
Hospitalist Progress Note - Encounter Date of Encounter: 10/30/17 Time of Encounter: 10:15 - Subjective Interval History: States that her breathing has improved, denies any cough or sputum production. No fever/chills. Noted that her BP has been persistently elevated. - Exam Vitals: Temp Pulse Resp BP Pulse Ox 97.6 F 81 15 169/105 99 10/30/17 10:47 10/30/17 10:47 10/30/17 10:47 10/30/17 10:47 10/30/17 10:47 Exam: General: awake, alert, not in distress Neck: supple, unable to appreciate JVD Cardiovascular: normal rate and irreg/irreg rhythm, normal S1 & S2. 1+ pitting edema to the bl knees Lungs: scattered rhonchi bilaterally, no wheezing, no crackles Abdomen:Soft, non-tender, non-distended, + bowel sounds Neurological: AAOx3, no focal deficits Skin:Normal color, no rash, no pallor - Assessment and Plan (1) Acute respiratory failure with hypoxia Current Visit: Yes Status: Acute Assessment and Plan: 2/2 decompensated diastolic CHF due to ?poorly controlled HTN and HCAP D5 vanc/zosyn, sputum cultures shows normal respiratory carrie speech eval: no evidence of aspiration no history of smoking, COPD, or asthma. Will taper steroids bronchodilators On 3L O2 via NC currently, continue to wean oxygen as clinical status improves ( wears 2L at home) (2) Acute on chronic diastolic (congestive) heart failure Current Visit: Yes Status: Acute Assessment and Plan: likely due to poorly controlled HTN repeat Echo: normal EF, dilated RV and IVC with elevated RA pressure continue IV lasix 40mg QD will switch to lopressor to coreg for better BP control may also need to uptitrate clonidine continue hydralazine (3) HCAP (healthcare-associated pneumonia) Current Visit: Yes Status: Acute Assessment and Plan: Patient has been hospitalized twice since mid-August. CT: diffuse GGO and ill-defined bilateral lower lobe airspae opacities improving on IV Vancomycin, Zosyn. D5 today taper steroids as above (4) HTN (hypertension), benign Current Visit: No Status: Acute Assessment and Plan: cont clonidine, lisinopril, hydralazine (allergy to norvasc) -10/27 increased BB -10/28 increased clonidine to TID and increase BB further - 10/30 lopressor switched to coreg -prn hydralazine -cont to up titrate meds as needed (5) Atrial fibrillation Current Visit: Yes Status: Chronic Assessment and Plan: lopressor switched to coreg as above on coumadin, pharm to dose. therapeutic INR (6) DVT prophylaxis Current Visit: Yes Status: Resolved Assessment and Plan: Therapeutic on Coumadin; pharmacy to dose. - Time Spent with Patient Total time spent is greater than 50% in coordination of care (as documented) at patient's floor/unit and/or counseling patient: Plan of Care Discussed with: patient Internal Medicine: Result - Labs CBC & Chem 7: 10/30/17 05:44 10/30/17 05:44 Labs: Short CBC 10/30/17 Range/Units 05:44 WBC 12.7 H (4.3-11.1) K/mcL Hgb 10.4 L (11.5-15.4) g/dL Hct 34.7 L (35.3-44.9) % Plt Count 317 (140-400) K/mcL Neutrophils # 9.9 H (1.6-8.9) K/mcL BMP 10/30/17 05:44 Sodium 135 L Potassium 3.3 L Chloride 94 L Carbon Dioxide 33 H BUN 34 H Creatinine 1.02 Glucose 130 H Calcium 8.6 - ABG Interpretation ABG results: ABG ABG pH 7.38 pH Units (7.32-7.45) 10/27/17 05:28 ABG pCO2 55 mmHg (35-45) H 10/27/17 05:28 ABG pO2 91 mmHg (85-104) 10/27/17 05:28 ABG O2 Saturation 97 % (95-98) 10/27/17 05:28 PT/INR, D-dimer PT 30.4 Seconds (9.4-12.1) H 10/30/17 05:44 - VTE Documentation of Mechanical Device: Intermittent pneumatic compression device Consult Discharge Plan - Plan Referrals: Vidhya Bland DO [Primary Care Provider] - (5) Atrial fibrillation Qualifiers: Atrial fibrillation type: chronic Qualified Code(s): I48.2 - Chronic atrial fibrillation
[2017-10-30] MEDS ORDERED: *HR* Warfarin 3 MG TABLET PO ONE (18:00)
[2017-10-30] MEDS: Magnesium Oxide 400 MG TABLET PO SCH (18:20)
[2017-10-31] MEDS: Ipratropium Neb 0.5 MG NEBULIZER IH SCH ×4 (04:50→21:20)
[2017-10-31] MEDS: hydrALAZINE 25 MG TABLET PO SCH ×3 (05:52→21:08)
[2017-10-31 06:13] LABS: Basophils % 0.1 %; Eosinophils # 0.2 K/mcL (0.0-0.6); Hematocrit 33.3 % (35.3-44.9); Hemoglobin 9.8 g/dL (11.5-15.4); Immature Granulocytes % 1.5 % (0-4); Lymphocytes # 1.7 K/mcL (0.6-4.6); Lymphocytes % 10.9 %; Mean Corpuscular HGB Conc 29.4 g/dL (31.6-35.5); Mean Corpuscular Hemoglobin 22.6 pg (28.0-33.3); Mean Corpuscular Volume 76.7 fL (83.0-100.0); Mean Platelet Volume 8.5 fL (9.4-12.4); Monocytes # 1.8 K/mcL (0.0-1.3); Monocytes % 11.6 %; Neutrophils # 11.7 K/mcL (1.6-8.9); Platelet Count 305 K/mcL (140-400); Red Blood Count 4.34 M/mcL (3.82-4.97); Red Cell Distribution Width 17.9 % (11.5-14.5); Segmented Neutrophils % 74.9 %
[2017-10-31 06:18] LABS: INR 2.4; Prothrombin Time 27.3 Seconds (9.4-12.1)
[2017-10-31 06:34] LABS: BUN/Creatinine Ratio 34 (6-26); Blood Urea Nitrogen 34 mg/dL (8-23); Calcium 8.4 mg/dL (8.6-10.3); Carbon Dioxide 37 mEq/L (23-29); Chloride 95 mEq/L (98-107); Glucose 96 mg/dL (70-105); Magnesium 2.1 mg/dL (1.6-2.6); Osmolality,Calculated 291 (280-300); Potassium 3.3 mEq/L (3.5-5.1); Sodium 137 mEq/L (136-145); eGFR For Non-African Americans 53 (> 60)
[2017-10-31] MEDS ORDERED: predniSONE 20 MG TABLET PO SCH (09:00)
[2017-10-31] MEDS: Insulin LISPRO 300 UNITS/3 ML VIAL SQ SCH ×3 (09:50→17:14)
[2017-10-31] MEDS: Multivit/Ca/Min/Fe/FA 1 TAB TABLET PO SCH (10:14)
[2017-10-31] MEDS: cloNIDine HCl 0.1 MG TABLET PO SCH ×3 (10:14→21:08)
[2017-10-31] MEDS: Aspirin Enteric Coated 81 MG Tablet PO SCH (10:14)
[2017-10-31] MEDS: Lisinopril 20 MG TABLET PO SCH ×2 (10:14→21:08)
[2017-10-31] MEDS: Piperacillin/Tazobactam 3.375 GM in 0.9 % Sodium Chloride Mini Bag 100 ML IVPB SCH ×3 (10:14→23:54)
[2017-10-31] MEDS: Furosemide 40 MG TABLET PO SCH ×2 (10:16→17:12)
[2017-10-31] MEDS ORDERED: Aminoglycoside Consult 1 EACH MC ONE (12:19)
--- NOTE | 2017-10-31 13:24 | Internal Med Progress Note ---
Hospitalist Progress Note - Encounter Date of Encounter: 10/31/17 Time of Encounter: 12:10 - Subjective Interval History: No acute events overnight, continues to improve from her respiratory standpoint. denies any worsening SOB, cough, or sputum production. No fever/ chills. Last few BP readings also show some improvement. - Exam Vitals: Temp Pulse Resp BP Pulse Ox 97.4 F L 73 15 145/71 96 10/31/17 12:17 10/31/17 12:10/31/17 12:10/31/17 12:10/31/17 12:17 Exam: General: awake, alert, not in distress Neck: supple, unable to appreciate JVD Cardiovascular: normal rate and irreg/irreg rhythm, normal S1 & S2. 1+ pitting edema to the bl knees Lungs: scattered rhonchi bilaterally, no wheezing, no crackles Abdomen:Soft, non-tender, non-distended, + bowel sounds Neurological: AAOx3, no focal deficits Skin:Normal color, no rash, no pallor - Assessment and Plan (1) Acute respiratory failure with hypoxia Current Visit: Yes Status: Acute Assessment and Plan: 2/2 HCAP and decompensated diastolic CHF due to ?poorly controlled HTN D6 vanc/zosyn, sputum cultures shows normal respiratory carrie. Aim for 7 day tx. speech eval: no evidence of aspiration no history of smoking, COPD, or asthma. Persistent leukocytosis likely due to ongoing steroid use continue to taper steroids, will switch to 20mg daily from tomorrow bronchodilators continue to wean oxygen as clinical status improves (wears 2L at home) attempted to contact for discharge planning (home with 24/7 assist vs. SNF), awaiting callback (2) Acute on chronic diastolic (congestive) heart failure Current Visit: Yes Status: Acute Assessment and Plan: likely due to poorly controlled HTN repeat Echo: normal EF, dilated RV and IVC with elevated RA pressure switch IV lasix to PO (home dose) BP better on coreg, may need to increase further may also need to uptitrate clonidine continue hydralazine (3) HCAP (healthcare-associated pneumonia) Current Visit: Yes Status: Acute Assessment and Plan: Patient has been hospitalized twice since mid-August. CT: diffuse GGO and ill-defined bilateral lower lobe airspae opacities improving on IV Vancomycin, Zosyn. D6 today taper steroids as above (4) HTN (hypertension), benign Current Visit: No Status: Acute Assessment and Plan: cont clonidine, lisinopril, hydralazine (allergy to norvasc) -10/27 increased BB -10/28 increased clonidine to TID and increase BB further - 10/30 lopressor switched to coreg -prn hydralazine -cont to up titrate meds as needed (5) Atrial fibrillation Current Visit: Yes Status: Chronic Assessment and Plan: lopressor switched to coreg as above on coumadin, pharm to dose. therapeutic INR (6) DVT prophylaxis Current Visit: Yes Status: Resolved Assessment and Plan: Therapeutic on Coumadin; pharmacy to dose. - Time Spent with Patient Total time spent is greater than 50% in coordination of care (as documented) at patient's floor/unit and/or counseling patient: Internal Medicine: Result - Labs CBC & Chem 7: 10/31/17 05:48 10/31/17 05:48 Labs: Short CBC 10/31/17 Range/Units 05:48 WBC 15.7 H (4.3-11.1) K/mcL Hgb 9.8 L (11.5-15.4) g/dL Hct 33.3 L (35.3-44.9) % Plt Count 305 (140-400) K/mcL Neutrophils # 11.7 H (1.6-8.9) K/mcL BMP 10/31/17 05:48 Sodium 137 Potassium 3.3 L Chloride 95 L Carbon Dioxide 37 H BUN 34 H Creatinine 1.00 Glucose 96 Calcium 8.4 L - ABG Interpretation ABG results: ABG ABG pH 7.38 pH Units (7.32-7.45) 10/27/17 05:28 ABG pCO2 55 mmHg (35-45) H 10/27/17 05:28 ABG pO2 91 mmHg (85-104) 10/27/17 05:28 ABG O2 Saturation 97 % (95-98) 10/27/17 05:28 PT/INR, D-dimer PT 27.3 Seconds (9.4-12.1) H 10/31/17 05:48 - VTE Documentation of Mechanical Device: Intermittent pneumatic compression device Consult Discharge Plan - Plan Referrals: Delmy Reza CNP [Partnered Physician] - 09/18/18 1:00 pm (5) Atrial fibrillation Qualifiers: Atrial fibrillation type: chronic Qualified Code(s): I48.2 - Chronic atrial fibrillation
[2017-10-31] MEDS: Magnesium Oxide 400 MG TABLET PO SCH (17:12)
[2017-10-31] MEDS ORDERED: *HR* Warfarin 2 MG TABLET PO ONE (18:00)
[2017-11-01] MEDS: Ipratropium Neb 0.5 MG NEBULIZER IH SCH ×2 (04:08→10:50)
[2017-11-01 05:25] LABS: INR 2.3; Prothrombin Time 25.6 Seconds (9.4-12.1)
[2017-11-01 05:36] LABS: Basophils % 0.1 %; Eosinophils # 0.1 K/mcL (0.0-0.6); Eosinophils % 0.9 %; Hematocrit 33.7 % (35.3-44.9); Hemoglobin 10.1 g/dL (11.5-15.4); Immature Granulocytes % 1.7 % (0-4); Lymphocytes # 2.1 K/mcL (0.6-4.6); Lymphocytes % 15.6 %; Mean Corpuscular Hemoglobin 23.2 pg (28.0-33.3); Mean Corpuscular Volume 77.5 fL (83.0-100.0); Mean Platelet Volume 8.8 fL (9.4-12.4); Monocytes # 1.3 K/mcL (0.0-1.3); Monocytes % 9.6 %; Neutrophils # 9.6 K/mcL (1.6-8.9); Platelet Count 270 K/mcL (140-400); Red Blood Count 4.35 M/mcL (3.82-4.97); Red Cell Distribution Width 17.8 % (11.5-14.5); Segmented Neutrophils % 72.1 %
[2017-11-01 05:43] LABS: BUN/Creatinine Ratio 31 (6-26); Blood Urea Nitrogen 31 mg/dL (8-23); Calcium 8.4 mg/dL (8.6-10.3); Carbon Dioxide 38 mEq/L (23-29); Chloride 96 mEq/L (98-107); Glucose 106 mg/dL (70-105); Osmolality,Calculated 293 (280-300); Potassium 3.9 mEq/L (3.5-5.1); Sodium 138 mEq/L (136-145); eGFR For Non-African Americans 53 (> 60)
[2017-11-01] MEDS: hydrALAZINE 25 MG TABLET PO SCH (06:03)
[2017-11-01] MEDS: Insulin LISPRO 300 UNITS/3 ML VIAL SQ SCH ×2 (08:58→11:54)
[2017-11-01] MEDS ORDERED: Furosemide 40 MG TABLET PO SCH (09:00)
[2017-11-01] MEDS ORDERED: predniSONE 20 MG TABLET PO SCH (09:00)
[2017-11-01] MEDS: cloNIDine HCl 0.1 MG TABLET PO SCH (09:52)
[2017-11-01] MEDS: Multivit/Ca/Min/Fe/FA 1 TAB TABLET PO SCH (09:52)
[2017-11-01] MEDS: Piperacillin/Tazobactam 3.375 GM in 0.9 % Sodium Chloride Mini Bag 100 ML IVPB SCH (09:52)
[2017-11-01] MEDS: Lisinopril 20 MG TABLET PO SCH (09:52)
[2017-11-01] MEDS: Aspirin Enteric Coated 81 MG Tablet PO SCH (09:52)
--- NOTE | 2017-11-01 10:06 | Discharge Summary ---
- NOTES TO OUTPATIENT PROVIDER Notes to Outpatient Provider: Patient was admitted for type I respiratory failure secondary to HCAP and decompensated heart failure. Treated with IV Vanc/ zosyn for 7 days which is to be transitioned to PO levaquin for additional 3 days. Also started on steroids which is tapered, will complete 3 more days of 20mg QD. As for decompensated diastolic heart failure, it could be due to poorly controlled HTN and her blood presure meds have been adjusted as per discharge med rec. Orders not resulted at time of discharge: Pending orders 10/27/17 08:42 Legionella Antigen [RM] Stat Streptococcal pneumoniae urin antigen [S. Pneumoniae Antigen] [RM] Stat 10/29/17 12:18 MRSA Surveillance Screen [MOLMIC] Routine Date of Encounter: 11/01/17 Time of Encounter: 08:40 - Discharge Diagnosis (1) Acute respiratory failure with hypoxia Priority: Primary Status: Acute (2) Acute on chronic diastolic (congestive) heart failure Priority: Secondary Status: Acute (3) HCAP (healthcare-associated pneumonia) Priority: Secondary Status: Acute (4) HTN (hypertension), benign Priority: Secondary Status: Acute (5) Atrial fibrillation Priority: Secondary Status: Chronic Qualifiers: Atrial fibrillation type: chronic Qualified Code(s): I48.2 - Chronic atrial fibrillation (6) DVT prophylaxis Priority: Secondary Status: Resolved Hospital course: Ms. Mcdermott is a 82 year old female with history of diastolic heart failure, atrial fibrillation, diabetes, hypertension, was admitted for hypoxic respiratory failure secondary to HCAP and decompensated heart failure. Treated with IV Vanc/zosyn for 7 days with clinical improvement and she will be transitioned to PO levaquin for additional 3 days. Also started on steroids which is tapered, will complete 3 more days of 20mg QD. As for decompensated diastolic heart failure, it does not appear to be due to lack of lasix dosing but rather secondary to poorly controlled HTN. Her metoprolol was switched to coreg and clonidine was uptitrated to 0.1 mg TID instead of BID. She may need further titration of HTN meds as outpatient. She had persistent leukocytosis during her stay which is likely due to high dose of steroids given to her; expect that to improve as steroid is completely tapered. Discharge discussed with: patient, case management - Time Spent with Patient Total time spent providing and/or coordinating discharge services: Greater than 30 minutes - Discharge Medications Prescriptions: Carvedilol [Coreg] 25 mg PO BIDWM #60 tablet cloNIDine HCl [CloNIDine HCl] 0.1 mg PO TID #90 tablet levoFLOXacin [Levaquin] 750 mg PO DAILY #3 tablet predniSONE [PredniSONE] 20 mg PO DAILY #3 tablet Home Medications: Glimepiride [Amaryl] 0.5 mg PO QPM 04/27/15 [History] Glimepiride [Amaryl] 1 mg PO QAM 04/27/15 [History] Lisinopril [Zestril] 20 mg PO BID 04/27/15 [History] Magnesium Oxide [Magnesium] 400 mg PO QPM 04/27/15 [History] Multivitamin/Iron/Folic Acid [Centrum Complete Multivit Tab] 1 each PO QAM 04/26 [History] Warfarin [Coumadin] 2 mg PO HS 04/27/15 [History] Aspirin [Lo-Dose Aspirin EC] 81 mg PO DAILY 09/03/17 [History] Cholecalciferol (D-3) [Vitamin D] 5,000 unit PO DAILY 09/03/17 [History] Hydralazine HCl 75 mg PO Q8H 09/03/17 [History] Furosemide [Lasix] 40 mg PO DAILY 10/26/17 [History] Levothyroxine [Synthroid] 112 mcg PO DAILY 10/26/17 [History] Carvedilol [Coreg] 25 mg PO BIDWM #60 tablet 11/01/17 [Rx] cloNIDine HCl [CloNIDine HCl] 0.1 mg PO TID #90 tablet 11/01/17 [Rx] levoFLOXacin [Levaquin] 750 mg PO DAILY #3 tablet 11/01/17 [Rx] predniSONE [PredniSONE] 20 mg PO DAILY #3 tablet 11/01/17 [Rx] Allergies/Adverse Reactions: 3 Allergy/AdvReac Type Severity Reaction Status Date / Time amlodipine [From [facility]] AdvReac See Verified 10/11/17 10:14 Comments Date of admission: 10/26/17 22:28 Primary care physician: Vidhya Bland DO Consults: 10/28/17 13:59 Consult to Physical Therapy [CONS] Routine Comment: Evaluate, develop and implement POC Reason for Consult: recurrent pna, deconditioned Does patient have active BEDREST order?: No Is patient medically & hemodynamically stable?: Yes Patient assessed for mobility or mobilized this visit?: No OT [Consult to Occupational Therapy] [CONS] Routine Comment: Evaluate, develop and implement POC Reason for Consult: recurrent pna, deconditioned Does patient have active BEDREST order?: No Is patient medically & hemodynamically stable?: Yes Patient assessed for mobility or mobilized this visit?: No 11/01/17 08:55 Consult to [employer] [CONS] Routine Reason for SW Consult: needs ecf - Constitutional Vitals: Temp Pulse Resp BP Pulse Ox 97.7 F 82 15 183/92 100 11/01/17 05:46 11/01/17 05:46 11/01/17 05:46 11/01/17 05:46 11/01/17 07:30 General appearance: Present: cooperative, mild distress, A&O X 3, pleasant, answers questions appropriately Exam: General: awake, alert, not in distress Neck: supple, unable to appreciate JVD Cardiovascular: normal rate and irreg/irreg rhythm, normal S1 & S2. 1+ pitting edema to the bl knees Lungs: minimal rhonchi bilaterally, no wheezing, no crackles Abdomen:Soft, non-tender, non-distended, + bowel sounds Neurological: AAOx3, no focal deficits Skin:Normal color, no rash, no pallor - Patient Status Disposition: Transfer SNF Condition: Fair Overall status at discharge: patient is progressing back to baseline - Discharge Instructions Instructions: Acute Respiratory Distress Syndrome (DC), Heart Failure (DC), Pneumonia (DC), Atrial Fibrillation (DC) Follow Up With: Delmy Rzea CNP [Partnered Physician] - 11/06/17 1:00 pm - Diet and Activity Activity: as per physical therapy Diet: diabetic diet - VTE Documentation of Mechanical Device: Intermittent pneumatic compression device
--- NOTE | 2017-11-01 10:19 | Physician Discharge Referral ---
ExtendedCare Referral Info Transfer To: [facility] Institutional Level of Care: Skilled - Diagnosis (1) Acute respiratory failure with hypoxia Priority: Primary Status: Acute (2) Acute on chronic diastolic (congestive) heart failure Priority: Secondary Status: Acute (3) HCAP (healthcare-associated pneumonia) Priority: Secondary Status: Acute (4) HTN (hypertension), benign Priority: Secondary Status: Acute (5) Atrial fibrillation Priority: Secondary Status: Chronic (6) DVT prophylaxis Priority: Secondary Status: Resolved Prognosis: Fair - Transfer Medications Prescriptions: Carvedilol [Coreg] 25 mg PO BIDWM #60 tablet cloNIDine HCl [CloNIDine HCl] 0.1 mg PO TID #90 tablet levoFLOXacin [Levaquin] 750 mg PO DAILY #3 tablet predniSONE [PredniSONE] 20 mg PO DAILY #3 tablet Home Medications: Glimepiride [Amaryl] 0.5 mg PO QPM 04/27/15 [History] Glimepiride [Amaryl] 1 mg PO QAM 04/27/15 [History] Lisinopril [Zestril] 20 mg PO BID 04/27/15 [History] Magnesium Oxide [Magnesium] 400 mg PO QPM 04/27/15 [History] Multivitamin/Iron/Folic Acid [Centrum Complete Multivit Tab] 1 each PO QAM 04/26 [History] Warfarin [Coumadin] 2 mg PO HS 04/27/15 [History] Aspirin [Lo-Dose Aspirin EC] 81 mg PO DAILY 09/03/17 [History] Cholecalciferol (D-3) [Vitamin D] 5,000 unit PO DAILY 09/03/17 [History] Hydralazine HCl 75 mg PO Q8H 09/03/17 [History] Furosemide [Lasix] 40 mg PO DAILY 10/26/17 [History] Levothyroxine [Synthroid] 112 mcg PO DAILY 10/26/17 [History] Carvedilol [Coreg] 25 mg PO BIDWM #60 tablet 11/01/17 [Rx] cloNIDine HCl [CloNIDine HCl] 0.1 mg PO TID #90 tablet 11/01/17 [Rx] levoFLOXacin [Levaquin] 750 mg PO DAILY #3 tablet 11/01/17 [Rx] predniSONE [PredniSONE] 20 mg PO DAILY #3 tablet 11/01/17 [Rx] Allergies/Adverse Reactions: 3 Allergy/AdvReac Type Severity Reaction Status Date / Time amlodipine [From [facility]] AdvReac See Verified 10/11/17 10:14 Comments - Respiratory Orders Oxygen / L per min (titrate to maintain SpO2 > 92%) Smoking Cessation: Smoking cessation has been advised. For more information, call the [place] Tobacco Quit Line at 1-821-RJQA-NOW. - Rehabiliation Orders Rehab Orders: Evaluation for Physical Therapy, Evaluation for Occupational Therapy - Diet Orders No Concentrated Sweets (complete 3 more days of PO levaquin and prednisone. Monitor INR per protocol on warfarin.) CERTIFICATION: I certify that the transfer of the above named patient to an Extended Care Facility is necessary for the continuing treatment of the diagnosis listed. The above information is true and accurate reflection of patient's current condition. Confidential - Redisclosure prohibited without a patient's written consent.
[2017-11-01 11:50] VITALS: BP 151/91
[2017-11-05] MEDS ORDERED: Furosemide 40 MG TABLET PO SCH ×2 (09:00)
== END 2017-11-01 12:20 | DRG 291 ==
LOC: EMEROOARM 14:00 → 3ANU 22:28 → SUATTDRO 22:28 → 3ANU 23:35
PROVIDERS: ADMIT Family Medicine; ATTEND Internal Medicine

== ENCOUNTER 2018-12-22 13:43 | Inpatient (IN) ==
[2018-12-22] MEDS ORDERED: Furosemide 40 MG/4 ML VIAL IVP ONE (14:17)
[2018-12-22] MEDS ORDERED: Nitroglycerin 1,000 MCG/10 ML VIAL IV ONE (14:23)
[2018-12-22] MEDS ORDERED: Nitroglycerin 25 MG/250 ML INFUS..BTL IVC SCH (14:30)
[2018-12-22] MEDS: Nitroglycerin 0.4 MG TAB.SUBL SL SCH ×3 (14:42→15:15)
[2018-12-22] MEDS ORDERED: Ipratropium/Albuterol Neb 3 ML IH ONE (14:47)
[2018-12-22 14:52] LABS: Bilirubin,Urine Negative (Negative); Blood,Urine Trace (Negative); Clarity,Urine Clear (Clear); Color,Urine Yellow (Yellow); Glucose,Urine (UA) Normal (Normal); Ketones,Urine Negative (Negative); Leukocyte Esterase,Urine Small (Negative); Nitrite,Urine Negative (Negative); Protein,Urine Negative (Neg-Trace); Specific Gravity,Urine 1.006 (1.010-1.025); Urobilinogen,Urine Normal (Normal)
[2018-12-22 14:55] LABS: Bacteria,Urine Few per hpf (None-Few); Hyaline Casts,Urine None Seen per lpf (None-Few); RBC,Urine 0-3 per hpf (0-3); Squamous Epithelial Cell,Urine Many per lpf (None-Few)
[2018-12-22 15:25] LABS: Basophils # 0.1 K/mcL (0.0-0.2); Basophils % 0.7 %; Eosinophils # 0.2 K/mcL (0.0-0.6); Eosinophils % 3.1 %; Hematocrit 39.6 % (35.3-44.9); Hemoglobin 11.8 g/dL (11.5-15.4); Immature Granulocytes % 0.6 % (0-4); Lymphocytes # 1.6 K/mcL (0.6-4.6); Lymphocytes % 21.6 %; Mean Corpuscular HGB Conc 29.8 g/dL (31.6-35.5); Mean Corpuscular Hemoglobin 22.6 pg (28.0-33.3); Mean Platelet Volume 9.1 fL (9.4-12.4); Monocytes # 0.9 K/mcL (0.0-1.3); Monocytes % 13.1 %; Neutrophils # 4.4 K/mcL (1.6-8.9); Platelet Count 169 K/mcL (140-400); Red Blood Count 5.21 M/mcL (3.82-4.97); Red Cell Distribution Width 17.2 % (11.5-14.5); Segmented Neutrophils % 60.9 %; White Blood Count 7.2 K/mcL (4.3-11.1)
[2018-12-22 15:43] LABS: Alanine Aminotransferase 10 Units/L (7-52); Albumin 3.4 g/dL (3.5-5.7); Albumin/Globulin Ratio 0.9 (1.1-2.2); Alkaline Phosphatase 88 Units/L (34-104); Aspartate Amino Transferase 20 Units/L (13-39); BUN/Creatinine Ratio 15 (6-26); Bilirubin,Total 1.1 mg/dL (0.3-1.0); Blood Urea Nitrogen 15 mg/dL (8-23); Calcium 8.9 mg/dL (8.6-10.3); Carbon Dioxide 32 mEq/L (23-29); Chloride 95 mEq/L (98-107); Globulin 3.6 g/dL (2.4-3.5); Glucose 92 mg/dL (70-105); Osmolality,Calculated 276 (280-300); Potassium 3.6 mEq/L (3.5-5.1); Sodium 133 mEq/L (136-145); eGFR For African Americans > 60 (> 60); eGFR For Non-African Americans 55 (> 60)
[2018-12-22 15:44] LABS: Troponin I < 0.03 ng/mL (< 0.04)
[2018-12-22] MEDS ORDERED: Ondansetron 4 MG/2 ML VIAL IVP PRN (16:48)
[2018-12-22] MEDS ORDERED: MOM Conc 10 ML UD.LIQ PO PRN (16:48)
[2018-12-22] MEDS ORDERED: D5% in Water 1,000 ML IVC PRN (17:00)
[2018-12-22] MEDS ORDERED: *HR* Dextrose 50 % in Water (Syg) 50 ML SYRINGE IVP PRN (17:00)
[2018-12-22] MEDS ORDERED: Dextrose Gel 15 GM/37.5 ML TUBE PO PRN ×2 (17:00)
[2018-12-22 18:00] LABS: Prothrombin Time 34.4 Seconds (9.4-12.1)
[2018-12-22] MEDS ORDERED: Warfarin perPT PO PRN (18:00)
[2018-12-22] MEDS ORDERED: *HR* Warfarin 1 MG TABLET PO ONE (20:00)
[2018-12-22] MEDS: cloNIDine HCl 0.1 MG TABLET PO SCH (20:48)
[2018-12-22] MEDS: cefTRIAXone 1,000 MG in Water for inj. (sterile) 10 ML IVP SCH (20:48)
[2018-12-23 05:44] LABS: Basophils % 0.5 %; Eosinophils # 0.2 K/mcL (0.0-0.6); Eosinophils % 2.2 %; Hematocrit 36.4 % (35.3-44.9); Hemoglobin 10.9 g/dL (11.5-15.4); Immature Granulocytes % 0.5 % (0-4); Lymphocytes # 1.1 K/mcL (0.6-4.6); Lymphocytes % 15.6 %; Mean Corpuscular HGB Conc 29.9 g/dL (31.6-35.5); Mean Corpuscular Hemoglobin 22.8 pg (28.0-33.3); Mean Platelet Volume 9.5 fL (9.4-12.4); Monocytes # 0.9 K/mcL (0.0-1.3); Monocytes % 12.2 %; Neutrophils # 5.1 K/mcL (1.6-8.9); Platelet Count 161 K/mcL (140-400); Red Blood Count 4.79 M/mcL (3.82-4.97); Red Cell Distribution Width 17.3 % (11.5-14.5); White Blood Count 7.3 K/mcL (4.3-11.1)
[2018-12-23 05:47] LABS: INR 3.2; Prothrombin Time 36.5 Seconds (9.4-12.1)
[2018-12-23 06:04] LABS: BUN/Creatinine Ratio 16 (6-26); Blood Urea Nitrogen 15 mg/dL (8-23); Calcium 8.5 mg/dL (8.6-10.3); Carbon Dioxide 33 mEq/L (23-29); Chloride 96 mEq/L (98-107); Glucose 78 mg/dL (70-105); Osmolality,Calculated 284 (280-300); Potassium 3.3 mEq/L (3.5-5.1); Sodium 137 mEq/L (136-145); eGFR For African Americans > 60 (> 60); eGFR For Non-African Americans 57 (> 60)
[2018-12-23] MEDS: Insulin LISPRO 300 UNITS/3 ML VIAL SQ SCH ×3 (07:30→17:57)
[2018-12-23] MEDS ORDERED: Potassium Chloride 40 MEQ, Lidocaine 1% 2 ML in 0.9 % Sodium Chloride 500 ML IVPB ONE (08:36)
[2018-12-23 09:17] LABS: Magnesium 1.6 mg/dL (1.6-2.6)
[2018-12-23] MEDS: Bumetanide 1 MG/4 ML VIAL IVP SCH (10:48)
[2018-12-23] MEDS: cloNIDine HCl 0.1 MG TABLET PO SCH ×3 (10:48→20:36)
[2018-12-23] MEDS: Cholecalciferol (D-3) 1,000 UNIT (25MCG) TABLET PO SCH (10:48)
[2018-12-23] MEDS: Multivit/Ca/Min/Fe/FA 1 TAB TABLET PO SCH (10:48)
[2018-12-23] MEDS: cefTRIAXone 1,000 MG in Water for inj. (sterile) 10 ML IVP SCH (18:00)
[2018-12-23] MEDS ORDERED: cloNIDine HCl 0.1 MG TABLET PO SCH (21:00)
[2018-12-24 07:31] LABS: BUN/Creatinine Ratio 21 (6-26); Blood Urea Nitrogen 20 mg/dL (8-23); Calcium 8.5 mg/dL (8.6-10.3); Carbon Dioxide 32 mEq/L (23-29); Chloride 96 mEq/L (98-107); Glucose 94 mg/dL (70-105); Osmolality,Calculated 284 (280-300); Potassium 3.9 mEq/L (3.5-5.1); Sodium 136 mEq/L (136-145); eGFR For African Americans > 60 (> 60); eGFR For Non-African Americans 57 (> 60)
[2018-12-24] MEDS: Insulin LISPRO 300 UNITS/3 ML VIAL SQ SCH ×3 (10:17→16:52)
[2018-12-24] MEDS: cloNIDine HCl 0.1 MG TABLET PO SCH ×3 (10:20→20:25)
[2018-12-24] MEDS: Multivit/Ca/Min/Fe/FA 1 TAB TABLET PO SCH (10:20)
[2018-12-24] MEDS: Bumetanide 1 MG/4 ML VIAL IVP SCH (10:20)
[2018-12-24] MEDS: Cholecalciferol (D-3) 1,000 UNIT (25MCG) TABLET PO SCH (10:21)
[2018-12-24] MEDS: Lisinopril 20 MG TABLET PO SCH (10:21)
[2018-12-24 11:05] LABS: Prothrombin Time 23.1 Seconds (9.4-12.1)
[2018-12-24] MEDS: Nitrofurantoin (BID) 100 MG CAPSULE PO SCH (17:31)
[2018-12-24] MEDS ORDERED: *HR* Warfarin 2 MG TABLET PO ONE (18:00)
[2018-12-25 05:13] LABS: Hematocrit 36.9 % (35.3-44.9); Hemoglobin 11.2 g/dL (11.5-15.4); Mean Corpuscular HGB Conc 30.4 g/dL (31.6-35.5); Mean Corpuscular Hemoglobin 22.8 pg (28.0-33.3); Mean Corpuscular Volume 75.2 fL (83.0-100.0); Mean Platelet Volume 9.6 fL (9.4-12.4); Platelet Count 151 K/mcL (140-400); Red Blood Count 4.91 M/mcL (3.82-4.97); Red Cell Distribution Width 17.2 % (11.5-14.5); White Blood Count 7.2 K/mcL (4.3-11.1)
[2018-12-25 05:15] LABS: INR 1.9; Prothrombin Time 21.1 Seconds (9.4-12.1)
[2018-12-25 05:34] LABS: BUN/Creatinine Ratio 24 (6-26); Blood Urea Nitrogen 22 mg/dL (8-23); Calcium 8.7 mg/dL (8.6-10.3); Carbon Dioxide 33 mEq/L (23-29); Chloride 95 mEq/L (98-107); Glucose 96 mg/dL (70-105); Osmolality,Calculated 281 (280-300); Potassium 3.9 mEq/L (3.5-5.1); Sodium 134 mEq/L (136-145); eGFR For African Americans > 60 (> 60); eGFR For Non-African Americans 58 (> 60)
[2018-12-25] MEDS: Cholecalciferol (D-3) 1,000 UNIT (25MCG) TABLET PO SCH (08:56)
[2018-12-25] MEDS: cloNIDine HCl 0.1 MG TABLET PO SCH ×3 (08:56→21:00)
[2018-12-25] MEDS: Lisinopril 20 MG TABLET PO SCH (08:56)
[2018-12-25] MEDS: Nitrofurantoin (BID) 100 MG CAPSULE PO SCH ×2 (08:56→17:38)
[2018-12-25] MEDS: Bumetanide 1 MG/4 ML VIAL IVP SCH (08:56)
[2018-12-25] MEDS: Multivit/Ca/Min/Fe/FA 1 TAB TABLET PO SCH (08:56)
[2018-12-25] MEDS: Insulin LISPRO 300 UNITS/3 ML VIAL SQ SCH ×3 (09:03→17:38)
[2018-12-25] MEDS ORDERED: *HR* Warfarin 2 MG TABLET PO ONE (18:00)
[2018-12-25] MEDS: Budesonide/Formoterol 160/4.5 1 PUFF INH IH SCH (19:48)
[2018-12-26 06:01] LABS: INR 1.8; Prothrombin Time 20.9 Seconds (9.4-12.1)
[2018-12-26 06:19] LABS: BUN/Creatinine Ratio 25 (6-26); Blood Urea Nitrogen 20 mg/dL (8-23); Calcium 8.8 mg/dL (8.6-10.3); Carbon Dioxide 34 mEq/L (23-29); Chloride 94 mEq/L (98-107); Glucose 99 mg/dL (70-105); Osmolality,Calculated 279 (280-300); Potassium 4.1 mEq/L (3.5-5.1); Sodium 133 mEq/L (136-145); eGFR For African Americans > 60 (> 60); eGFR For Non-African Americans > 60 (> 60)
[2018-12-26] MEDS: Cholecalciferol (D-3) 1,000 UNIT (25MCG) TABLET PO SCH (09:49)
[2018-12-26] MEDS: Bumetanide 1 MG TABLET PO SCH ×2 (09:49→17:42)
[2018-12-26] MEDS: Multivit/Ca/Min/Fe/FA 1 TAB TABLET PO SCH (09:49)
[2018-12-26] MEDS: Nitrofurantoin (BID) 100 MG CAPSULE PO SCH (09:49)
[2018-12-26] MEDS: Lactobacillus 1 EACH CAP.SPRINK PO SCH ×2 (09:49→20:02)
[2018-12-26] MEDS: cloNIDine HCl 0.1 MG TABLET PO SCH ×3 (09:49→20:02)
[2018-12-26] MEDS: Lisinopril 20 MG TABLET PO SCH (09:50)
[2018-12-26] MEDS: Insulin LISPRO 300 UNITS/3 ML VIAL SQ SCH ×3 (09:50→17:37)
[2018-12-26] MEDS: Budesonide/Formoterol 160/4.5 1 PUFF INH IH SCH ×2 (11:18→21:58)
[2018-12-26 12:09] LABS: Adenovirus F 40/41 PCR Not detected (Not detect); Astrovirus PCR Not detected (Not detect); C.difficile Toxin A/B Gene PCR Not detected (Not detect); Campylobacter by PCR Not detected (Not detect); Cryptosporidium by PCR Not detected (Not detect); Cyclospora cayetanensis PCR Not detected (Not detect); E. coli O157 by PCR Not detected (Not detect); Entamoeba histolytica PCR Not detected (Not detect); Enteroaggregative E.coli(EAEC) Not detected (Not detect); Enteropathogenic E.coli(EPEC) Not detected (Not detect); Enterotoxigenic E.coli (ETEC) Not detected (Not detect); Giardia lamblia PCR Not detected (Not detect); Norovirus GI/GII PCR Not detected (Not detect); Plesiomonas shigelloides PCR Not detected (Not detect); Rotavirus A PCR Not detected (Not detect); Salmonella PCR Not detected (Not detect); Sapovirus PCR Not detected (Not detect); Shig/EnteroinvasiveE coli EIEC Not detected (Not detect); Shigalike tox-prod E coli STEC Not detected (Not detect); Vibrio PCR Not detected (Not detect); Vibrio cholerae PCR Not detected (Not detect); Yersinia enterocolitica PCR Not detected (Not detect)
[2018-12-26] MEDS ORDERED: Fosfomycin Tromethamine 3 GM Packet PO ONE (14:15)
[2018-12-26] MEDS ORDERED: Bumetanide 1 MG TABLET PO SCH (17:00)
[2018-12-26] MEDS ORDERED: *HR* Warfarin 2 MG TABLET PO ONE (18:00)
[2018-12-27 01:22] LABS: INR 2.2; Prothrombin Time 24.5 Seconds (9.4-12.1)
[2018-12-27 01:23] LABS: Basophils % 0.3 %; Eosinophils # 0.3 K/mcL (0.0-0.6); Eosinophils % 4.1 %; Hematocrit 36.2 % (35.3-44.9); Immature Granulocytes % 0.3 % (0-4); Lymphocytes # 1.3 K/mcL (0.6-4.6); Lymphocytes % 19.9 %; Mean Corpuscular HGB Conc 30.4 g/dL (31.6-35.5); Mean Corpuscular Hemoglobin 22.6 pg (28.0-33.3); Mean Corpuscular Volume 74.3 fL (83.0-100.0); Mean Platelet Volume 9.2 fL (9.4-12.4); Monocytes # 0.9 K/mcL (0.0-1.3); Monocytes % 13.6 %; Platelet Count 153 K/mcL (140-400); Red Blood Count 4.87 M/mcL (3.82-4.97); Segmented Neutrophils % 61.8 %; White Blood Count 6.5 K/mcL (4.3-11.1)
[2018-12-27 01:39] LABS: BUN/Creatinine Ratio 24 (6-26); Blood Urea Nitrogen 19 mg/dL (8-23); Calcium 8.8 mg/dL (8.6-10.3); Carbon Dioxide 33 mEq/L (23-29); Chloride 92 mEq/L (98-107); Glucose 95 mg/dL (70-105); Osmolality,Calculated 276 (280-300); Potassium 4.2 mEq/L (3.5-5.1); Sodium 132 mEq/L (136-145); eGFR For African Americans > 60 (> 60); eGFR For Non-African Americans > 60 (> 60)
[2018-12-27] MEDS: Insulin LISPRO 300 UNITS/3 ML VIAL SQ SCH ×3 (08:26→17:02)
[2018-12-27] MEDS: Bumetanide 1 MG TABLET PO SCH (08:38)
[2018-12-27] MEDS: Cholecalciferol (D-3) 1,000 UNIT (25MCG) TABLET PO SCH (08:38)
[2018-12-27] MEDS: Lactobacillus 1 EACH CAP.SPRINK PO SCH ×2 (08:38→20:32)
[2018-12-27] MEDS: Lisinopril 20 MG TABLET PO SCH (08:38)
[2018-12-27] MEDS: cloNIDine HCl 0.1 MG TABLET PO SCH ×3 (08:38→20:32)
[2018-12-27] MEDS: Multivit/Ca/Min/Fe/FA 1 TAB TABLET PO SCH (08:38)
[2018-12-27] MEDS: Budesonide/Formoterol 160/4.5 1 PUFF INH IH SCH ×2 (11:29→20:04)
[2018-12-27] MEDS: Furosemide 40 MG TABLET PO SCH (17:25)
[2018-12-27] MEDS ORDERED: *HR* Warfarin 2 MG TABLET PO ONE (18:00)
[2018-12-28 02:52] LABS: INR 2.1; Prothrombin Time 24.4 Seconds (9.4-12.1)
[2018-12-28 03:07] LABS: BUN/Creatinine Ratio 25 (6-26); Blood Urea Nitrogen 20 mg/dL (8-23); Calcium 8.7 mg/dL (8.6-10.3); Carbon Dioxide 35 mEq/L (23-29); Chloride 92 mEq/L (98-107); Glucose 91 mg/dL (70-105); Osmolality,Calculated 280 (280-300); Potassium 4.2 mEq/L (3.5-5.1); Sodium 134 mEq/L (136-145); eGFR For African Americans > 60 (> 60); eGFR For Non-African Americans > 60 (> 60)
[2018-12-28] MEDS: Budesonide/Formoterol 160/4.5 1 PUFF INH IH SCH ×2 (08:06→21:14)
[2018-12-28] MEDS: Insulin LISPRO 300 UNITS/3 ML VIAL SQ SCH ×3 (08:20→16:56)
[2018-12-28] MEDS: Lisinopril 20 MG TABLET PO SCH (08:45)
[2018-12-28] MEDS: Cholecalciferol (D-3) 1,000 UNIT (25MCG) TABLET PO SCH (08:45)
[2018-12-28] MEDS: cloNIDine HCl 0.1 MG TABLET PO SCH ×3 (08:45→21:06)
[2018-12-28] MEDS: Multivit/Ca/Min/Fe/FA 1 TAB TABLET PO SCH (08:45)
[2018-12-28] MEDS: Lactobacillus 1 EACH CAP.SPRINK PO SCH ×2 (08:45→21:06)
[2018-12-28] MEDS: Furosemide 40 MG TABLET PO SCH ×2 (08:46→16:06)
[2018-12-28] MEDS ORDERED: *HR* Warfarin 2 MG TABLET PO ONE (18:00)
[2018-12-28] MEDS ORDERED: Saline Nasal Spray 44 ML BOTTLE NS PRN ×2 (18:25→18:31)
[2018-12-29 02:12] LABS: INR 1.8; Prothrombin Time 20.4 Seconds (9.4-12.1)
[2018-12-29] MEDS: Budesonide/Formoterol 160/4.5 1 PUFF INH IH SCH ×2 (07:57→22:19)
[2018-12-29] MEDS: Insulin LISPRO 300 UNITS/3 ML VIAL SQ SCH ×3 (07:58→16:49)
[2018-12-29] MEDS: Lisinopril 20 MG TABLET PO SCH (08:08)
[2018-12-29] MEDS: Cholecalciferol (D-3) 1,000 UNIT (25MCG) TABLET PO SCH (08:08)
[2018-12-29] MEDS: Furosemide 40 MG TABLET PO SCH ×2 (08:08→15:54)
[2018-12-29] MEDS: Lactobacillus 1 EACH CAP.SPRINK PO SCH ×2 (08:08→20:18)
[2018-12-29] MEDS: cloNIDine HCl 0.1 MG TABLET PO SCH ×3 (08:08→20:18)
[2018-12-29] MEDS: Multivit/Ca/Min/Fe/FA 1 TAB TABLET PO SCH (08:08)
[2018-12-29 13:06] LABS: BUN/Creatinine Ratio 24 (6-26); Blood Urea Nitrogen 20 mg/dL (8-23); Calcium 8.8 mg/dL (8.6-10.3); Carbon Dioxide 37 mEq/L (23-29); Chloride 91 mEq/L (98-107); Glucose 95 mg/dL (70-105); Osmolality,Calculated 280 (280-300); Sodium 134 mEq/L (136-145); eGFR For African Americans > 60 (> 60); eGFR For Non-African Americans > 60 (> 60)
[2018-12-29] MEDS ORDERED: *HR* Warfarin 2.5 MG TABLET PO ONE (18:00)
[2018-12-30 03:24] LABS: INR 1.7; Prothrombin Time 19.4 Seconds (9.4-12.1)
[2018-12-30 03:39] LABS: BUN/Creatinine Ratio 25 (6-26); Blood Urea Nitrogen 20 mg/dL (8-23); Calcium 8.5 mg/dL (8.6-10.3); Carbon Dioxide 38 mEq/L (23-29); Chloride 92 mEq/L (98-107); Glucose 103 mg/dL (70-105); Osmolality,Calculated 279 (280-300); Potassium 3.8 mEq/L (3.5-5.1); Sodium 133 mEq/L (136-145); eGFR For African Americans > 60 (> 60); eGFR For Non-African Americans > 60 (> 60)
[2018-12-30] MEDS: Insulin LISPRO 300 UNITS/3 ML VIAL SQ SCH ×3 (07:45→18:29)
[2018-12-30] MEDS: Lisinopril 20 MG TABLET PO SCH (09:12)
[2018-12-30] MEDS: cloNIDine HCl 0.1 MG TABLET PO SCH ×2 (09:12→16:22)
[2018-12-30] MEDS: Multivit/Ca/Min/Fe/FA 1 TAB TABLET PO SCH (09:13)
[2018-12-30] MEDS: Lactobacillus 1 EACH CAP.SPRINK PO SCH (09:13)
[2018-12-30] MEDS: Furosemide 40 MG TABLET PO SCH ×2 (09:13→16:22)
[2018-12-30] MEDS: Cholecalciferol (D-3) 1,000 UNIT (25MCG) TABLET PO SCH (09:13)
[2018-12-30] MEDS: Budesonide/Formoterol 160/4.5 1 PUFF INH IH SCH (10:52)
[2018-12-30 15:17] VITALS: BP 150/74
[2018-12-30] MEDS ORDERED: *HR* Warfarin 2.5 MG TABLET PO ONE (18:00)
== END 2018-12-30 19:06 | DRG 291 ==
LOC: 3BNU 13:43 → EMEROOARM 13:43 → SUATTDRO 16:47 → 3BNU 17:50 → SUATTDRO 12-23 14:00
PROVIDERS: ADMIT Internal Medicine; ATTEND Family Medicine

== ENCOUNTER 2019-03-25 12:10 | Observation (INO) ==
[2019-03-25 12:48] LABS: Basophils # 0.1 K/mcL (0.0-0.2); Basophils % 0.8 %; Eosinophils # 0.1 K/mcL (0.0-0.6); Eosinophils % 0.7 %; Hematocrit 41.2 % (35.3-44.9); Immature Granulocytes % 0.4 % (0-4); Lymphocytes # 1.3 K/mcL (0.6-4.6); Lymphocytes % 18.7 %; Mean Corpuscular HGB Conc 31.6 g/dL (31.6-35.5); Mean Corpuscular Hemoglobin 23.9 pg (28.0-33.3); Mean Corpuscular Volume 75.6 fL (83.0-100.0); Mean Platelet Volume 9.1 fL (9.4-12.4); Monocytes # 0.8 K/mcL (0.0-1.3); Monocytes % 10.9 %; Neutrophils # 4.9 K/mcL (1.6-8.9); Platelet Count 125 K/mcL (140-400); Red Blood Count 5.45 M/mcL (3.82-4.97); Red Cell Distribution Width 19.7 % (11.5-14.5); Segmented Neutrophils % 68.5 %; White Blood Count 7.2 K/mcL (4.3-11.1)
[2019-03-25 13:06] LABS: INR 2.4; Prothrombin Time 26.8 Seconds (9.4-12.1)
[2019-03-25 13:08] LABS: Alanine Aminotransferase 13 Units/L (7-52); Albumin 3.5 g/dL (3.5-5.7); Alkaline Phosphatase 113 Units/L (34-104); Aspartate Amino Transferase 25 Units/L (13-39); BUN/Creatinine Ratio 21 (6-26); Blood Urea Nitrogen 16 mg/dL (8-23); Calcium 8.9 mg/dL (8.6-10.3); Carbon Dioxide 27 mEq/L (23-29); Chloride 94 mEq/L (98-107); Globulin 3.6 g/dL (2.4-3.5); Glucose 136 mg/dL (70-105); Osmolality,Calculated 273 (280-300); Sodium 130 mEq/L (136-145); Total Protein 7.1 g/dL (6.4-8.9); Troponin I 0.03 ng/mL (< 0.04); eGFR For African Americans > 60 (> 60); eGFR For Non-African Americans > 60 (> 60)
[2019-03-25] MEDS ORDERED: Furosemide 40 MG/4 ML VIAL IVP ONE (13:12)
[2019-03-25] MEDS ORDERED: Naloxone 0.4 MG/ML INJ IVP PRN (15:38)
[2019-03-25] MEDS ORDERED: Budesonide/Formoterol 160/4.5 1 PUFF INH IH PRN (15:51)
[2019-03-25] MEDS: Ipratropium/Albuterol Neb 3 ML IH PRN (15:57)
[2019-03-25] MEDS ORDERED: Perflutren Lipid Microsphere 1.3 ML in 0.9 % Sodium Chloride 8.7 ML IVP ONE (16:31)
[2019-03-25] MEDS ORDERED: *HR* Dextrose 50 % in Water (Syg) 50 ML SYRINGE IVP PRN (16:38)
[2019-03-25] MEDS ORDERED: D5% in Water 1,000 ML IVC PRN (16:38)
[2019-03-25] MEDS ORDERED: Dextrose Gel 15 GM/37.5 ML TUBE PO PRN ×2 (16:38)
[2019-03-25] MEDS: Insulin LISPRO 300 UNITS/3 ML VIAL SQ SCH (16:54)
[2019-03-25] MEDS: MethylPREDNISolone 40 MG/ML VIAL IVP SCH (16:56)
[2019-03-25] MEDS ORDERED: Furosemide 40 MG/4 ML VIAL IVP SCH (17:00)
[2019-03-25] MEDS ORDERED: carvediloL 25 MG TABLET PO SCH (17:00)
[2019-03-25] MEDS ORDERED: Warfarin perPT PO PRN (18:00)
[2019-03-25 18:46] LABS: Adenovirus Not Detected (Not Detect); Bordetella Pertussis Not Detected (Not Detect); Chlamydophila pneumoniae Not Detected (Not Detect); Coronavirus 229E Not Detected (Not Detect); Coronavirus HKU1 Not Detected (Not Detect); Coronavirus NL63 Not Detected (Not Detect); Coronavirus OC43 Not Detected (Not Detect); Human Metapneumovirus Not Detected (Not Detect); Human Rhinovirus/Enterovirus Not Detected (Not Detect); Influenza A Subtype 2009 H1 Not Detected (Not Detect); Influenza B Not Detected (Not Detect); Mycoplasma pneumoniae Not Detected (Not Detect); Parainfluenza Virus 1 Not Detected (Not Detect); Parainfluenza Virus 2 Not Detected (Not Detect); Parainfluenza Virus 3 Not Detected (Not Detect); Parainfluenza Virus 4 Not Detected (Not Detect); Respiratory Syncytial Virus Not Detected (Not Detect)
[2019-03-25] MEDS ORDERED: *HR* Warfarin 2 MG TABLET PO ONE (19:45)
[2019-03-25] MEDS ORDERED: Lisinopril 20 MG TABLET PO SCH (21:00)
[2019-03-25] MEDS ORDERED: cloNIDine HCl 0.1 MG TABLET PO SCH (21:00)
[2019-03-25] MEDS ORDERED: Ipratropium/Albuterol Neb 3 ML IH ONE (21:59)
[2019-03-26] MEDS ORDERED: cloNIDine HCl 0.1 MG TABLET PO ONE (00:04)
[2019-03-26] MEDS: Ipratropium/Albuterol Neb 3 ML IH PRN (00:05)
[2019-03-26 03:47] LABS: ABG Base Excess -1 mEq/L (-2 to 3); ABG HCO3 32 mEq/L (21-27); ABG Oxygen Saturation 93 % (95-98); ABG PCO2 100 mmHg (35-45); ABG PH 7.12 pH Units (7.32-7.45); ABG PO2 94 mmHg (85-104); ABG TCO2 35 mEq/L (20-26)
[2019-03-26] MEDS: Ipratropium/Albuterol Neb 3 ML IH SCH ×4 (03:55→12:00)
[2019-03-26] MEDS ORDERED: *HR* LORazepam 2 MG/ML VIAL IVP ONE (04:03)
[2019-03-26] MEDS: MethylPREDNISolone 40 MG/ML VIAL IVP SCH (05:17)
[2019-03-26 05:27] LABS: ABG Base Excess 2 mEq/L (-2 to 3); ABG HCO3 30 mEq/L (21-27); ABG Oxygen Saturation 90 % (95-98); ABG PCO2 61 mmHg (35-45); ABG PO2 65 mmHg (85-104); ABG TCO2 32 mEq/L (20-26); Blood Gas Modality AVAPS; Blood Gas Pressure Support 35 cm H2O; Blood Gas VT 500 cc
[2019-03-26 05:57] LABS: Basophils % 0.2 %; Eosinophils % 0.2 %; Hematocrit 40.2 % (35.3-44.9); Hemoglobin 12.3 g/dL (11.5-15.4); Immature Granulocytes % 0.9 % (0-4); Immature Platelets 1.9 % (1.1-6.1); Lymphocytes # 0.5 K/mcL (0.6-4.6); Lymphocytes % 9.5 %; Mean Corpuscular HGB Conc 30.6 g/dL (31.6-35.5); Mean Corpuscular Hemoglobin 23.8 pg (28.0-33.3); Mean Corpuscular Volume 77.9 fL (83.0-100.0); Mean Platelet Volume 9.5 fL (9.4-12.4); Monocytes # 0.2 K/mcL (0.0-1.3); Monocytes % 4.3 %; Neutrophils # 4.6 K/mcL (1.6-8.9); Red Blood Count 5.16 M/mcL (3.82-4.97); Red Cell Distribution Width 19.2 % (11.5-14.5); Segmented Neutrophils % 84.9 %; White Blood Count 5.4 K/mcL (4.3-11.1)
[2019-03-26 06:00] LABS: Prothrombin Time 33.9 Seconds (9.4-12.1)
[2019-03-26 06:18] LABS: Platelet Count 89 K/mcL (140-400)
[2019-03-26 06:31] LABS: BUN/Creatinine Ratio 23 (6-26); Blood Urea Nitrogen 22 mg/dL (8-23); Calcium 8.6 mg/dL (8.6-10.3); Carbon Dioxide 26 mEq/L (23-29); Chloride 94 mEq/L (98-107); Glucose 152 mg/dL (70-105); Osmolality,Calculated 276 (280-300); Potassium 4.1 mEq/L (3.5-5.1); Sodium 130 mEq/L (136-145); eGFR For African Americans > 60 (> 60); eGFR For Non-African Americans 56 (> 60)
[2019-03-26 07:43] VITALS: BP 145/79
[2019-03-26] MEDS: Insulin LISPRO 300 UNITS/3 ML VIAL SQ SCH (07:56)
[2019-03-26] MEDS ORDERED: Cholecalciferol (D-3) 1,000 UNIT (25MCG) TABLET PO SCH (09:00)
[2019-03-26 09:53] LABS: ABG Base Excess 4 mEq/L (-2 to 3); ABG HCO3 32 mEq/L (21-27); ABG Oxygen Saturation 96 % (95-98); ABG PCO2 65 mmHg (35-45); ABG PO2 93 mmHg (85-104); ABG TCO2 34 mEq/L (20-26); Blood Gas Modality AVAPS; Blood Gas VT 500 cc
[2019-03-26] MEDS ORDERED: Furosemide 40 MG TABLET PO SCH (17:00)
[2019-03-26] MEDS ORDERED: *HR* Warfarin 1 MG TABLET PO ONE (18:00)
== END 2019-03-26 14:40 | disposition expired ==
LOC: 3BNU 12:10 → EMEROOARM 12:10 → 3BNU 14:23
PROVIDERS: ADMIT Internal Medicine; ATTEND Internal Medicine